=== PATIENT | female | born 1945 | race Caucasian/White ===

== ENCOUNTER → 2017-11-24 14:08 | Outpatient (CLI) | payer MEDICARE, OTHER, SELFPAY ==
--- NOTE | 2017-11-24 14:11 | DI.RAD.S_ITS ---
PROCEDURE: XR HIP W PEL IF DONE RT 2V INDICATIONS: right hip pain/pelvic pain TECHNIQUE: AP pelvis with lateral view(s) of the right hip(s). COMPARISON: None. FINDINGS: Bones: No fractures or dislocations. Pelvic ring appears intact. No suspicious bony lesions. Lower lumbar discogenic changes are present. There is vefg-bt-rukchoul bilateral hip degeneration, with subchondral sclerosis and spurring. Soft tissues: The visualized bowel gas pattern is normal. No suspicious soft tissue calcifications. IMPRESSION: Apem-lx-[id number] bilateral hip joint degeneration. Dictated by: Bandar Tavera M.D. on 11/24/2017 at 14:58 Approved by: Bandar Tavera M.D. on 11/24/2017 at 15:00
== END ==
PROVIDERS: PCP Internal Medicine; Visit Provider Internal Medicine
DX: M25.551 Pain in right hip (principal); M16.0 Bilateral primary osteoarthritis of hip; R10.2 Pelvic and perineal pain
CPT/HCPCS: 73502

== ENCOUNTER 2018-12-18 12:00 | Outpatient (RCR) | payer MEDICARE, OTHER, SELFPAY ==
--- NOTE | 2018-10-26 12:52 | PT.OIE ---
Current Diagnoses Other chronic pain (10/26/18) Pain in right hip (10/26/18) Stiffness of right hip, not elsewhere classified (10/26/18) Radiculopathy, lumbar region (10/26/18) Dorsalgia, unspecified (10/26/18) Muscle weakness (generalized) (10/26/18) Past Medical History (Last Updated 11/24/17 @ 14:17 by Ulises Loyd MD) Anxiety (Chronic ~2001) Bilateral medial epicondylitis of elbow joint (Resolved 2004) Cataract, right eye (Resolved 2013) Cervical spine pain (Resolved ~1999) Chronic back pain (Chronic 2003) Chronic headaches (Chronic) DVT (deep venous thrombosis) (Resolved 2008) Fibromyalgia (Chronic ~1999) Foot pain, left (Resolved ~2009) GERD (gastroesophageal reflux disease) (Chronic ~2004) 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) Recurrent sinusitis (Resolved ~1999) Right hip pain (Resolved 2005) Shoulder pain (Resolved) Sleep apnea (Chronic ~1999) Past Surgical History (Last Reviewed 11/24/17 @ 14:14 by Ulises Loyd MD) Anesthesia (Resolved) History of basal cell carcinoma (BCC) excision (Resolved 06/14/11) History of gynecologic surgery (Resolved) History of open reduction and internal fixation (ORIF) procedure (Resolved 09/30/15) History of right cataract surgery (Resolved 2013) Visit Care Team Role Provider Type Ulises Loyd MD Attending Provider Physician Primary Care Provider Specialty: Internal Medicine Address: [address] [place] [address], [facility] Email: [email or web address] Physical Therapy Initial Evaluation PT-OP-A Visit Information Start: 10/26/18 12:26 Freq: Status: Active Protocol: Document 10/26/18 11:15 DCW (Rec: 10/26/18 12:52 DCW [id number]) Out-Patient Physical Therapy Visit Information Visit Information Visit Type Initial Evaluation Visit Start Time 11:15 Visit Stop Time 11:55 Total Visit Minutes 40 Visit Number 1 Number of PIANO MOVER Visits 0 Evaluation Information Evaluation Date 10/26/18 PT-OP-B Current Condition Start: 10/26/18 12:26 Freq: Status: Active Protocol: Document 10/26/18 11:15 DCW (Rec: 10/26/18 12:52 [facility] [id number]) Current Condition History of Current Condition Onset Date Two months Current Complaints right-sided low back and hip pain with radicular right leg pain History of Current Condition Pt is a 73 year old female presenting with a recurring history of right-sided low back and hip pain, with radicular symptoms into her right lower extremity. Pt reports that 2.5 years ago, she was treated in PT for the same symptoms, which seemed to help her quite a bit. Pt reports that she flared up her pain following the of her father over the summer, after which she was responsible for packing up and selling his home. Pt describes the initial pain as a burning sensation, however following a recent course of steroids, the pain switched from burning to aching. Pt notes the pain is more in the buttock and leg, and reports her right leg feels painful and tight, making ascending stairs and lifting her leg into the car difficult. Pt admits that she was looking at a chart, and I think it is my Piriformis muscle. I think that's what was wrong last time, so I've been doing the stretch I remember from two years ago. Prior Treatments and Tests 2.5 years s/p PT for same issue Future Testing and Treatments Planned Per PCP note, referral to Dr Armendariz if therapy does not decrease pt's symptoms Prior Functional Status Baseline Function- ADL's Independent Baseline Function- Mobility Independent Current Functional Impairments (Reported) Functional Limitations- Other Difficulty with pain and tightness ascending stairs and lifting R leg into car PT-OP-C Subjective Start: 10/26/18 12:26 Freq: Status: Active Protocol: Document 10/26/18 11:15 DCW (Rec: 10/26/18 12:52 [facility] [id number]) OP-PT Pain Assessment Pain Assessment Grid Paper Pain Assessment Grid Completed Yes Location Right Posterior Hip Pain Location Details Right posterior/lateral hip Intensity 6 Scale Used Numeric (1 - 10) Description Aching,Burning PT-OP-F Manual Assessment Start: 10/26/18 12:26 Freq: Status: Active Protocol: Document 10/26/18 11:15 DCW (Rec: 10/26/18 12:52 [facility] [id number]) Manual Assessments Soft Tissue Assessment Soft Tissue Mobility Assessment Severe tone and tenderness to palpation 3/4: Wincing and withdraw on right piriformis Mild tone and tenderness to palpation 1/4: Complaint of pain along bilateral QL Joint Mobility Assessment Joint Mobility Assessment Tenderness to palpation 2/4: Pain with wincing along R SI, pt feels relief with palpation of L SI. No complaints of pain with palpation/mobilization of lumbar vertebrae. PT-OP-K Range of Motion Start: 10/26/18 12:26 Freq: Status: Active Protocol: Document 10/26/18 11:15 DCW (Rec: 10/26/18 12:52 DCW [id number]) Lumbar Spine Range of Motion Lumbar Spine Active Degrees Testing Position Standing Flexion 30 Extension 25 Lateral Flexion Left 49 Lateral Flexion Right 49 ROM Limitations Soft Tissue Tightness Comments Lateral flexion measured in cm from floor to finger tips Hip Goniometric Range of Motion Hip Left Passive Internal Rotation 35 External Rotation 45 Right Passive Internal Rotation 20 External Rotation 25 PT-OP-L Special Tests Start: 10/26/18 12:26 Freq: Status: Active Protocol: Document 10/26/18 11:15 DCW (Rec: 10/26/18 12:52 DCW [id number]) Special Tests Lumbar Spine Special Tests Lateral SI Compression Test Results Negative Anterior SI Shear Test Results Negative Vertical Spine Loading Test Results Negative NEY Test Results R Ipsilateral posterior hip pain Straight Leg Raise Test Results Negative Slump Test Results Negative Compression Test Results Negative PT-OP-M Strength Start: 10/26/18 12:26 Freq: Status: Active Protocol: Document 10/26/18 11:15 DCW (Rec: 10/26/18 12:52 DCW [id number]) Hip Strength Hip Manual Muscle Testing Right Flexion (L2) 4 Good Abduction 5 Normal Adduction 5 Normal External Rotation 4+ Good+ Internal Rotation 4+ Good+ Left Flexion (L2) 5 Normal Abduction 5 Normal Adduction 5 Normal External Rotation 5 Normal Internal Rotation 5 Normal Knee Strength Knee Manual Muscle Testing Right Flexion (S2) 5 Normal Extension (L3) 5 Normal Left Flexion (S2) 5 Normal Extension (L3) 5 Normal PT-OP-Q Treatments Start: 10/26/18 12:26 Freq: Status: Active Protocol: Document 10/26/18 11:15 DCW (Rec: 10/26/18 12:52 DCW [id number]) Therapeutic Exercises Supine Exercises Piriformis Stretch Supine Exercise Name Figure-4, Skab-bn-Rqpdyhpv Shoulder Side right Sitting Exercises Self-STM Sitting Exercise Name STM to Piriformis /c Tennis ball Piriformis stretch Sitting Exercise Name Seated Figure-4 Side right PT-OP-T Assessment and Plan Start: 10/26/18 12:26 Freq: Status: Active Protocol: Document 10/26/18 11:15 DCW (Rec: 10/26/18 12:52 DCW [id number]) Physical Therapy Assessment Rehab Potential Rehabilitation Potential Good Evaluation Complexity Number of Personal Factors/Comorbidities 1-2 Number of Body Systems Impaired 1-2 Clinical Presentation at Evaluation Stable Impairments Impairments Functional Mobility,Pain,ROM, Soft Tissue Mobility,Strength Goals Three Impairment Restricted hip ROM in ER and IR Extrusion Press Adjuster Goal (LTG) Right ER to 40? and IR to 35? LTG Duration 12/26/18 Two Impairment Pt hip flexion weakness Short Term Goal (STG) Pt to lift leg into car with no increased symptoms of pain or tightness STG Duration 11/25/18 Extrusion Press Adjuster Goal (LTG) Pt to ascend stairs with no increased symptoms LTG Duration 12/26/18 One Impairment Pt does not have an appropriate home exercise program Short Term Goal (STG) Pt to be independent and compliant with an appropriate HEP STG Duration 11/25/18 Assessment Summary Assessment Pt presents with signs and symptoms consistent with Piriformis syndrome. From pt's description, this was pt's problem previously when she underwent PT 2.5 years ago, and pt reports symptoms are similar. Therapist was unable to create and low back pain or symptoms with testing today, and pt was very tender to palpation of the Piriformis and the area around its origin . Pt should benefit from skilled therapy focusing on decreasing soft tissue tone, improving hip ROM and strength , improving pt's functional mobility or stairs and lifting her leg into her car, and improving flexibility. Physical Therapy Plan Frequency and Duration Frequency of Treatment 2x/Week Duration of Treatment two months Plan of Care Start Date 10/26/18 Plan of Care End Date 12/26/18 Therapeutic Interventions Therapeutic Interventions Aquatic Therapy,Home Exercise Program,Joint Mobilizations, Manual Therapy,Self-Care/Home Management,Soft Tissue Mobilization,Therapeutic Activities,Therapeutic Exercises Modalities Cold Pack/Ice Massage,Electric Stimulation,Hot Packs, Ultrasound Next Visit Focus/Plan Next Note Type Treatment Note Next Visit Plan STM, Flexibililty exercises, strengthening, hip ROM
--- NOTE | 2018-10-26 12:53 | PT.OPPOC ---
Current Diagnoses Other chronic pain (10/26/18) Pain in right hip (10/26/18) Stiffness of right hip, not elsewhere classified (10/26/18) Radiculopathy, lumbar region (10/26/18) Dorsalgia, unspecified (10/26/18) Muscle weakness (generalized) (10/26/18) Visit Care Team Role Provider Type Ulises Loyd MD Attending Provider Physician Primary Care Provider Specialty: Internal Medicine Address: [address] [place] [address], [facility] [address], [place], [facility] Email: [email or web address] Plan Of Care PT-OP-T Assessment and Plan Start: 10/26/18 12:26 Freq: Status: Active Protocol: Document 10/26/18 11:15 DCW (Rec: 10/26/18 12:52 DCW [id number]) Physical Therapy Assessment Rehab Potential Rehabilitation Potential Good Evaluation Complexity Number of Personal Factors/Comorbidities 1-2 Number of Body Systems Impaired 1-2 Clinical Presentation at Evaluation Stable Impairments Impairments Functional Mobility,Pain,ROM, Soft Tissue Mobility,Strength Goals Three Impairment Restricted hip ROM in ER and IR Computer Numerical Control Grinder Goal (LTG) Right ER to 40? and IR to 35? LTG Duration 12/26/18 Two Impairment Pt hip flexion weakness Short Term Goal (STG) Pt to lift leg into car with no increased symptoms of pain or tightness STG Duration 11/25/18 Jail Goal (LTG) Pt to ascend stairs with no increased symptoms LTG Duration 12/26/18 One Impairment Pt does not have an appropriate home exercise program Short Term Goal (STG) Pt to be independent and compliant with an appropriate HEP STG Duration 11/25/18 Assessment Summary Assessment Pt presents with signs and symptoms consistent with Piriformis syndrome. From pt's description, this was pt's problem previously when she underwent PT 2.5 years ago, and pt reports symptoms are similar. Therapist was unable to create and low back pain or symptoms with testing today, and pt was very tender to palpation of the Piriformis and the area around its origin . Pt should benefit from skilled therapy focusing on decreasing soft tissue tone, improving hip ROM and strength , improving pt's functional mobility or stairs and lifting her leg into her car, and improving flexibility. Physical Therapy Plan Frequency and Duration Frequency of Treatment 2x/Week Duration of Treatment two months Plan of Care Start Date 10/26/18 Plan of Care End Date 12/26/18 Therapeutic Interventions Therapeutic Interventions Aquatic Therapy,Home Exercise Program,Joint Mobilizations, Manual Therapy,Self-Care/Home Management,Soft Tissue Mobilization,Therapeutic Activities,Therapeutic Exercises Modalities Cold Pack/Ice Massage,Electric Stimulation,Hot Packs, Ultrasound Next Visit Focus/Plan Next Note Type Treatment Note Next Visit Plan STM, Flexibility exercises, strengthening, hip ROM Plan of Care Dates Plan of Care Start Date 10/26/18 Plan of Care End Date 12/26/18 Please Sign and Return: I have reviewed this Plan of Care and certify that the skilled therapy services above are required to meet the patient?s needs. Physician Signature Date Printed Name and Credentials Clinical Instructor Signature Printed Name and Credentials
--- NOTE | 2018-11-13 13:41 | PT.OTN ---
Current Diagnoses Other chronic pain (11/13/18) Pain in right hip (11/13/18) Stiffness of right hip, not elsewhere classified (11/13/18) Radiculopathy, lumbar region (11/13/18) Dorsalgia, unspecified (11/13/18) Muscle weakness (generalized) (11/13/18) Physical Therapy Treatment Note PT-OP-A Visit Information Start: 10/26/18 12:26 Freq: Status: Active Protocol: Document 11/13/18 13:45 GGD (Rec: 11/15/18 16:41 GGD [id number]) Out-Patient Physical Therapy Visit Information Visit Information Visit Type Treatment Note Visit Start Time 13:45 Visit Stop Time 14:25 Total Visit Minutes 40 Visit Number 2 Number of PREPARED FOODS SUPERVISOR Visits 1 Evaluation Information Evaluation Date 10/26/18 PT-OP-B Current Condition Start: 10/26/18 12:26 Freq: Status: Active Protocol: Document 10/26/18 11:15 DCW (Rec: 10/26/18 12:52 DCW [id number]) Current Condition History of Current Condition Onset Date Two months Current Complaints right-sided low back and hip pain with radicular right leg pain History of Current Condition Pt is a 73 year old female presenting with a recurring history of right-sided low back and hip pain, with radicular symptoms into her right lower extremity. Pt reports that 2.5 years ago, she was treated in PT for the same symptoms, which seemed to help her quite a bit. Pt reports that she flared up her pain following the of her father over the summer, after which she was responsible for packing up and selling his home. Pt describes the initial pain as a burning sensation, however following a recent course of steroids, the pain switched from burning to aching. Pt notes the pain is more in the buttock and leg, and reports her right leg feels painful and tight, making ascending stairs and lifting her leg into the car difficult. Pt admits that she was looking at a chart, and I think it is my Piriformis muscle. I think that's what was wrong last time, so I've been doing the stretch I remember from two years ago. Prior Treatments and Tests 2.5 years s/p PT for same issue Future Testing and Treatments Planned Per PCP note, referral to Dr Billow if therapy does not decrease pt's symptoms Prior Functional Status Baseline Function- ADL's Independent Baseline Function- Mobility Independent Current Functional Impairments (Reported) Functional Limitations- Other Difficulty with pain and tightness ascending stairs and lifting R leg into car PT-OP-C Subjective Start: 10/26/18 12:26 Freq: Status: Active Protocol: Document 11/13/18 13:45 GGD (Rec: 11/15/18 16:41 GGD [id number]) OP-PT Subjective Patient Comments Patient Comments Pt states she been out of town and is a little sore from traveling. PT-OP-F Manual Assessment Start: 10/26/18 12:26 Freq: Status: Active Protocol: Document 10/26/18 11:15 DCW (Rec: 10/26/18 12:52 DCW [id number]) Manual Assessments Soft Tissue Assessment Soft Tissue Mobility Assessment Severe tone and tenderness to palpation 3/4: Wincing and withdraw on right piriformis Mild tone and tenderness to palpation 1/4: Complaint of pain along bilateral QL Joint Mobility Assessment Joint Mobility Assessment Tenderness to palpation 2/4: Pain with wincing along R SI, pt feels relief with palpation of L SI. No complaints of pain with palpation/mobilization of lumbar vertebrae. PT-OP-K Range of Motion Start: 10/26/18 12:26 Freq: Status: Active Protocol: Document 10/26/18 11:15 DCW (Rec: 10/26/18 12:52 DCW [id number]) Lumbar Spine Range of Motion Lumbar Spine Active Degrees Testing Position Standing Flexion 30 Extension 25 Lateral Flexion Left 49 Lateral Flexion Right 49 ROM Limitations Soft Tissue Tightness Comments Lateral flexion measured in cm from floor to finger tips Hip Goniometric Range of Motion Hip Left Passive Internal Rotation 35 External Rotation 45 Right Passive Internal Rotation 20 External Rotation 25 PT-OP-L Special Tests Start: 10/26/18 12:26 Freq: Status: Active Protocol: Document 10/26/18 11:15 DCW (Rec: 10/26/18 12:52 DCW [id number]) Special Tests Lumbar Spine Special Tests Lateral SI Compression Test Results Negative Anterior SI Shear Test Results Negative Vertical Spine Loading Test Results Negative NEY Test Results R Ipsilateral posterior hip pain Straight Leg Raise Test Results Negative Slump Test Results Negative Compression Test Results Negative PT-OP-M Strength Start: 10/26/18 12:26 Freq: Status: Active Protocol: Document 10/26/18 11:15 DCW (Rec: 10/26/18 12:52 DCW [id number]) Hip Strength Hip Manual Muscle Testing Right Flexion (L2) 4 Good Abduction 5 Normal Adduction 5 Normal External Rotation 4+ Good+ Internal Rotation 4+ Good+ Left Flexion (L2) 5 Normal Abduction 5 Normal Adduction 5 Normal External Rotation 5 Normal Internal Rotation 5 Normal Knee Strength Knee Manual Muscle Testing Right Flexion (S2) 5 Normal Extension (L3) 5 Normal Left Flexion (S2) 5 Normal Extension (L3) 5 Normal PT-OP-Q Treatments Start: 10/26/18 12:26 Freq: Status: Active Protocol: Document 11/13/18 13:45 GGD (Rec: 11/15/18 16:41 GGD [id number]) Therapeutic Exercises Supine Exercises hip add Supine Exercise Name Hip add Side bilateral Equipment Used ball Reps/Minutes 10 SKC Side bilateral Reps/Minutes 2 x 30 LTR Supine Exercise Name low trunk rotations Side bilateral Reps/Minutes 10 hamstring str. Supine Exercise Name hamstring Str. Side bilateral Reps/Minutes 60 sec bridges Supine Exercise Name bridges Side bilateral Reps/Minutes 10 Piriformis Stretch Supine Exercise Name Figure-4, Eyqk-jt-Irrgepow Shoulder Side right Sidelying Exercises Hip abduction Side bilateral Reps/Minutes 10 Comments cues for form clamshells Sidelying Exercise Name clamshells Side bilateral Reps/Minutes 10 Manual Therapy Treatment Soft Tissue Mobilization 1 Body Location right piriformis Mobilization Type Myofascial Release,Sustained Pressure Intensity/Depth Moderate Body Position Sidelying PT-OP-T Assessment and Plan Start: 10/26/18 12:26 Freq: Status: Active Protocol: Document 11/13/18 13:45 GGD (Rec: 11/15/18 16:41 GGD [id number]) Physical Therapy Assessment Assessment Summary Assessment Pt needed cues for exercise technique. She had good tolerance to light STM. Physical Therapy Plan Frequency and Duration Frequency of Treatment 2x/Week Duration of Treatment two months Plan of Care Start Date 10/26/18 Plan of Care End Date 12/26/18 Therapeutic Interventions Therapeutic Interventions Aquatic Therapy,Home Exercise Program,Joint Mobilizations, Manual Therapy,Self-Care/Home Management,Soft Tissue Mobilization,Therapeutic Activities,Therapeutic Exercises Next Visit Focus/Plan Next Note Type Treatment Note Next Visit Plan STM, Flexibililty exercises, strengthening, hip ROM, shuttle, biodex
--- NOTE | 2018-11-21 14:34 | PT.OTN ---
Current Diagnoses Other chronic pain (11/21/18) Pain in right hip (11/21/18) Stiffness of right hip, not elsewhere classified (11/21/18) Radiculopathy, lumbar region (11/21/18) Dorsalgia, unspecified (11/21/18) Muscle weakness (generalized) (11/21/18) Physical Therapy Treatment Note PT-OP-A Visit Information Start: 10/26/18 12:26 Freq: Status: Active Protocol: Document 11/21/18 13:45 HH (Rec: 11/21/18 14:33 HH [email or web address]) Out-Patient Physical Therapy Visit Information Visit Information Visit Type Treatment Note Visit Start Time 13:45 Visit Stop Time 14:30 Total Visit Minutes 45 Visit Number 3 Number of ADVANCED QUALITY ENGINEER Visits 0 PT-OP-B Current Condition Start: 10/26/18 12:26 Freq: Status: Active Protocol: Document 10/26/18 11:15 DCW (Rec: 10/26/18 12:52 DCW [id number]) Current Condition History of Current Condition Onset Date Two months Current Complaints right-sided low back and hip pain with radicular right leg pain History of Current Condition Pt is a 73 year old female presenting with a recurring history of right-sided low back and hip pain, with radicular symptoms into her right lower extremity. Pt reports that 2.5 years ago, she was treated in PT for the same symptoms, which seemed to help her quite a bit. Pt reports that she flared up her pain following the of her father over the summer, after which she was responsible for packing up and selling his home. Pt describes the initial pain as a burning sensation, however following a recent course of steroids, the pain switched from burning to aching. Pt notes the pain is more in the buttock and leg, and reports her right leg feels painful and tight, making ascending stairs and lifting her leg into the car difficult. Pt admits that she was looking at a chart, and I think it is my Piriformis muscle. I think that's what was wrong last time, so I've been doing the stretch I remember from two years ago. Prior Treatments and Tests 2.5 years s/p PT for same issue Future Testing and Treatments Planned Per PCP note, referral to Dr Armendariz if therapy does not decrease pt's symptoms Prior Functional Status Baseline Function- ADL's Independent Baseline Function- Mobility Independent Current Functional Impairments (Reported) Functional Limitations- Other Difficulty with pain and tightness ascending stairs and lifting R leg into car PT-OP-C Subjective Start: 10/26/18 12:26 Freq: Status: Active Protocol: Document 11/21/18 13:45 HH (Rec: 11/21/18 14:33 HH [email or web address]) OP-PT Subjective Patient Comments Patient Comments Nika been doing all my exercises. Having noticed any changes yet since it's only been one week. PT-OP-F Manual Assessment Start: 10/26/18 12:26 Freq: Status: Active Protocol: Document 10/26/18 11:15 DCW (Rec: 10/26/18 12:52 DCW [id number]) Manual Assessments Soft Tissue Assessment Soft Tissue Mobility Assessment Severe tone and tenderness to palpation 3/4: Wincing and withdraw on right piriformis Mild tone and tenderness to palpation 1/4: Complaint of pain along bilateral QL Joint Mobility Assessment Joint Mobility Assessment Tenderness to palpation 2/4: Pain with wincing along R SI, pt feels relief with palpation of L SI. No complaints of pain with palpation/mobilization of lumbar vertebrae. PT-OP-K Range of Motion Start: 10/26/18 12:26 Freq: Status: Active Protocol: Document 10/26/18 11:15 DCW (Rec: 10/26/18 12:52 DCW [id number]) Lumbar Spine Range of Motion Lumbar Spine Active Degrees Testing Position Standing Flexion 30 Extension 25 Lateral Flexion Left 49 Lateral Flexion Right 49 ROM Limitations Soft Tissue Tightness Comments Lateral flexion measured in cm from floor to finger tips Hip Goniometric Range of Motion Hip Left Passive Internal Rotation 35 External Rotation 45 Right Passive Internal Rotation 20 External Rotation 25 PT-OP-L Special Tests Start: 10/26/18 12:26 Freq: Status: Active Protocol: Document 10/26/18 11:15 DCW (Rec: 10/26/18 12:52 DCW [id number]) Special Tests Lumbar Spine Special Tests Lateral SI Compression Test Results Negative Anterior SI Shear Test Results Negative Vertical Spine Loading Test Results Negative NEY Test Results R Ipsilateral posterior hip pain Straight Leg Raise Test Results Negative Slump Test Results Negative Compression Test Results Negative PT-OP-M Strength Start: 10/26/18 12:26 Freq: Status: Active Protocol: Document 10/26/18 11:15 DCW (Rec: 10/26/18 12:52 DCW [id number]) Hip Strength Hip Manual Muscle Testing Right Flexion (L2) 4 Good Abduction 5 Normal Adduction 5 Normal External Rotation 4+ Good+ Internal Rotation 4+ Good+ Left Flexion (L2) 5 Normal Abduction 5 Normal Adduction 5 Normal External Rotation 5 Normal Internal Rotation 5 Normal Knee Strength Knee Manual Muscle Testing Right Flexion (S2) 5 Normal Extension (L3) 5 Normal Left Flexion (S2) 5 Normal Extension (L3) 5 Normal PT-OP-Q Treatments Start: 10/26/18 12:26 Freq: Status: Active Protocol: Document 11/21/18 13:45 HH (Rec: 11/21/18 14:33 HH [email or web address]) Therapeutic Exercises Supine Exercises Piriformis Stretch Supine Exercise Name Figure-4, Bcsi-az-Xywuxrye Shoulder Side right Sidelying Exercises self STM Sidelying Exercise Name to have spouse assist Equipment Used rolling pin Comments on piriformis and IT band clamshells Sidelying Exercise Name clakshells Side bilateral Reps/Minutes 10 Comments modification on hips at 90 degrees Gait Training Gait Activity hurdles Description single stance Device Used 1 gt Surface ground level Treatment Focus correct ipsilateral hip drop Comments single leg stance on R LE Manual Therapy Treatment Soft Tissue Mobilization TFL, IT band Mobilization Type Rolling Intensity/Depth Moderate Body Position Sidelying Comments rolling pin 1 Body Location right piriformis Mobilization Type Myofascial Release,Sustained Pressure Intensity/Depth Moderate Body Position Sidelying Joint Mobilizations R SIJ distraction Grade III Body Position Sidelying Reps/Duration 10 secs x5 R hip distraction Direction inferior Grade III Body Position Supine Reps/Duration 5secs x 8 PT-OP-T Assessment and Plan Start: 10/26/18 12:26 Freq: Status: Active Protocol: Document 11/21/18 13:45 HH (Rec: 11/21/18 14:33 HH [email or web address]) Physical Therapy Assessment Goals Three Impairment Restricted hip ROM in ER and IR 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 and IR to 35? LTG Duration 12/26/18 Two Impairment Pt hip flexion weakness Short Term Goal (STG) Pt to lift leg into car with no increased symptoms of pain or tightness STG Duration 11/25/18 Long-Term Goal (LTG) Pt to ascend stairs with no increased symptoms LTG Duration 12/26/18 One Impairment Pt does not have an appropriate home exercise program Short Term Goal (STG) Pt to be independent and compliant with an appropriate HEP STG Duration 11/25/18 Assessment Summary Assessment Focused on manual therapy on R glute, piriformis, TFL, It band today. Added self release with spouse assistance using rolling pin. Gait analysis today noticed pt has significant lateral weight shift during RLE stance phase and L hip drop. Used gt and mirror to facilitate even hip level. Physical Therapy Plan Next Visit Focus/Plan Next Note Type Treatment Note Next Visit Plan STM, Flexibililty exercises, strengthening, hip ROM, shuttle, biodex
--- NOTE | 2018-11-26 14:32 | PT.OTN ---
Current Diagnoses Other chronic pain (11/26/18) Pain in right hip (11/26/18) Stiffness of right hip, not elsewhere classified (11/26/18) Radiculopathy, lumbar region (11/26/18) Dorsalgia, unspecified (11/26/18) Muscle weakness (generalized) (11/26/18) Physical Therapy Treatment Note PT-OP-A Visit Information Start: 10/26/18 12:26 Freq: Status: Active Protocol: Document 11/26/18 13:50 DCW (Rec: 11/26/18 14:32 DCW [id number]) Out-Patient Physical Therapy Visit Information Visit Information Visit Type Treatment Note Visit Start Time 13:50 Visit Stop Time 14:30 Total Visit Minutes 40 Visit Number 4 Number of FILM DEVELOPER Visits 0 Evaluation Information Evaluation Date 10/26/18 PT-OP-B Current Condition Start: 10/26/18 12:26 Freq: Status: Active Protocol: Document 10/26/18 11:15 DCW (Rec: 10/26/18 12:52 DCW [id number]) Current Condition History of Current Condition Onset Date Two months Current Complaints right-sided low back and hip pain with radicular right leg pain History of Current Condition Pt is a 73 year old female presenting with a recurring history of right-sided low back and hip pain, with radicular symptoms into her right lower extremity. Pt reports that 2.5 years ago, she was treated in PT for the same symptoms, which seemed to help her quite a bit. Pt reports that she flared up her pain following the of her father over the summer, after which she was responsible for packing up and selling his home. Pt describes the initial pain as a burning sensation, however following a recent course of steroids, the pain switched from burning to aching. Pt notes the pain is more in the buttock and leg, and reports her right leg feels painful and tight, making ascending stairs and lifting her leg into the car difficult. Pt admits that she was looking at a chart, and I think it is my Piriformis muscle. I think that's what was wrong last time, so I've been doing the stretch I remember from two years ago. Prior Treatments and Tests 2.5 years s/p PT for same issue Future Testing and Treatments Planned Per PCP note, referral to Dr Armendariz if therapy does not decrease pt's symptoms Prior Functional Status Baseline Function- ADL's Independent Baseline Function- Mobility Independent Current Functional Impairments (Reported) Functional Limitations- Other Difficulty with pain and tightness ascending stairs and lifting R leg into car PT-OP-C Subjective Start: 10/26/18 12:26 Freq: Status: Active Protocol: Document 11/26/18 13:50 DCW (Rec: 11/26/18 14:32 DCW [id number]) OP-PT Subjective Patient Comments Patient Comments Pt reports she is pretty okay overall. PT-OP-F Manual Assessment Start: 10/26/18 12:26 Freq: Status: Active Protocol: Document 10/26/18 11:15 DCW (Rec: 10/26/18 12:52 DCW [id number]) Manual Assessments Soft Tissue Assessment Soft Tissue Mobility Assessment Severe tone and tenderness to palpation 3/4: Wincing and withdraw on right piriformis Mild tone and tenderness to palpation 1/4: Complaint of pain along bilateral QL Joint Mobility Assessment Joint Mobility Assessment Tenderness to palpation 2/4: Pain with wincing along R SI, pt feels relief with palpation of L SI. No complaints of pain with palpation/mobilization of lumbar vertebrae. PT-OP-K Range of Motion Start: 10/26/18 12:26 Freq: Status: Active Protocol: Document 10/26/18 11:15 DCW (Rec: 10/26/18 12:52 DCW [id number]) Lumbar Spine Range of Motion Lumbar Spine Active Degrees Testing Position Standing Flexion 30 Extension 25 Lateral Flexion Left 49 Lateral Flexion Right 49 ROM Limitations Soft Tissue Tightness Comments Lateral flexion measured in cm from floor to finger tips Hip Goniometric Range of Motion Hip Left Passive Internal Rotation 35 External Rotation 45 Right Passive Internal Rotation 20 External Rotation 25 PT-OP-L Special Tests Start: 10/26/18 12:26 Freq: Status: Active Protocol: Document 10/26/18 11:15 DCW (Rec: 10/26/18 12:52 DCW [id number]) Special Tests Lumbar Spine Special Tests Lateral SI Compression Test Results Negative Anterior SI Shear Test Results Negative Vertical Spine Loading Test Results Negative NEY Test Results R Ipsilateral posterior hip pain Straight Leg Raise Test Results Negative Slump Test Results Negative Compression Test Results Negative PT-OP-M Strength Start: 10/26/18 12:26 Freq: Status: Active Protocol: Document 10/26/18 11:15 DCW (Rec: 10/26/18 12:52 DCW [id number]) Hip Strength Hip Manual Muscle Testing Right Flexion (L2) 4 Good Abduction 5 Normal Adduction 5 Normal External Rotation 4+ Good+ Internal Rotation 4+ Good+ Left Flexion (L2) 5 Normal Abduction 5 Normal Adduction 5 Normal External Rotation 5 Normal Internal Rotation 5 Normal Knee Strength Knee Manual Muscle Testing Right Flexion (S2) 5 Normal Extension (L3) 5 Normal Left Flexion (S2) 5 Normal Extension (L3) 5 Normal PT-OP-Q Treatments Start: 10/26/18 12:26 Freq: Status: Active Protocol: Document 11/26/18 13:50 DCW (Rec: 11/26/18 14:32 DCW [id number]) Therapeutic Exercises Supine Exercises hip add Supine Exercise Name Hip add Side bilateral Equipment Used ball Reps/Minutes 10 LTR Supine Exercise Name low trunk rotations Side bilateral Equipment Used 45 cm T-ball Reps/Minutes 10 hamstring str. Supine Exercise Name hamstring Str. Side bilateral Reps/Minutes 60 sec bridges Supine Exercise Name bridges Side bilateral Reps/Minutes 10 Piriformis Stretch Supine Exercise Name Figure-4, Jewp-qt-Apxezuzk Shoulder Side right Sidelying Exercises Reverse Clamshell Sidelying Exercise Name Reverse Clamshells Side bilateral Hip abduction Side bilateral Reps/Minutes 10 Comments cues for form clamshells Sidelying Exercise Name clamshells Side bilateral Reps/Minutes 10 Other Exercises Resisted Ambulation Other Exercise Name Side-stepping Resistance Yellow Equipment Used T-band Gait Training Gait Activity hurdles Description single stance Device Used 1 gt Surface ground level Treatment Focus correct ipsilateral hip drop Comments single leg stance on R LE Manual Therapy Treatment Soft Tissue Mobilization TFL, IT band Mobilization Type Strumming,Sustained Pressure Intensity/Depth Moderate Body Position Sidelying Comments rolling pin 1 Body Location right piriformis Mobilization Type Myofascial Release,Sustained Pressure Intensity/Depth Moderate Body Position Sidelying Joint Mobilizations R hip distraction Direction inferior Grade III Body Position Supine Reps/Duration 5secs x 8 PT-OP-T Assessment and Plan Start: 10/26/18 12:26 Freq: Status: Active Protocol: Document 11/26/18 13:50 DCW (Rec: 11/26/18 14:32 DCW [id number]) Physical Therapy Assessment Goals Three Impairment Restricted hip ROM in ER and IR [facility] Goal (LTG) Right ER to 40? and IR to 35? LTG Duration 12/26/18 Two Impairment Pt hip flexion weakness Short Term Goal (STG) Pt to lift leg into car with no increased symptoms of pain or tightness STG Duration 11/25/18 T[employer] Controlled Machine Stitcher Goal (LTG) Pt to ascend stairs with no increased symptoms LTG Duration 12/26/18 One Impairment Pt does not have an appropriate home exercise program Short Term Goal (STG) Pt to be independent and compliant with an appropriate HEP STG Duration 11/25/18 Assessment Summary Assessment Decreased force of STM after pt noted she felt it was a bit too much last time. At end of appt, pt noted she was happy with the direction we' re going. Physical Therapy Plan Frequency and Duration Frequency of Treatment 2x/Week Duration of Treatment two months Plan of Care Start Date 10/26/18 Plan of Care End Date 12/26/18 Therapeutic Interventions Therapeutic Interventions Aquatic Therapy,Home Exercise Program,Joint Mobilizations, Manual Therapy,Self-Care/Home Management,Soft Tissue Mobilization,Therapeutic Activities,Therapeutic Exercises Next Visit Focus/Plan Next Note Type Treatment Note Next Visit Plan STM, Flexibililty exercises, strengthening, hip ROM, shuttle, biodex
--- NOTE | 2018-11-28 14:27 | PT.OTN ---
Current Diagnoses Other chronic pain (11/28/18) Pain in right hip (11/28/18) Stiffness of right hip, not elsewhere classified (11/28/18) Radiculopathy, lumbar region (11/28/18) Dorsalgia, unspecified (11/28/18) Muscle weakness (generalized) (11/28/18) Physical Therapy Treatment Note PT-OP-A Visit Information Start: 10/26/18 12:26 Freq: Status: Active Protocol: Document 11/28/18 13:57 DCW (Rec: 11/28/18 14:27 DCW [id number]) Out-Patient Physical Therapy Visit Information Visit Information Visit Type Treatment Note Visit Start Time 13:57 Visit Stop Time 14:30 Total Visit Minutes 33 Visit Number 5 Number of MANAGER PROPERTY Visits 0 Evaluation Information Evaluation Date 10/26/18 PT-OP-B Current Condition Start: 10/26/18 12:26 Freq: Status: Active Protocol: Document 10/26/18 11:15 DCW (Rec: 10/26/18 12:52 DCW [id number]) Current Condition History of Current Condition Onset Date Two months Current Complaints right-sided low back and hip pain with radicular right leg pain History of Current Condition Pt is a 73 year old female presenting with a recurring history of right-sided low back and hip pain, with radicular symptoms into her right lower extremity. Pt reports that 2.5 years ago, she was treated in PT for the same symptoms, which seemed to help her quite a bit. Pt reports that she flared up her pain following the of her father over the summer, after which she was responsible for packing up and selling his home. Pt describes the initial pain as a burning sensation, however following a recent course of steroids, the pain switched from burning to aching. Pt notes the pain is more in the buttock and leg, and reports her right leg feels painful and tight, making ascending stairs and lifting her leg into the car difficult. Pt admits that she was looking at a chart, and I think it is my Piriformis muscle. I think that's what was wrong last time, so I've been doing the stretch I remember from two years ago. Prior Treatments and Tests 2.5 years s/p PT for same issue Future Testing and Treatments Planned Per PCP note, referral to Dr Armendariz if therapy does not decrease pt's symptoms Prior Functional Status Baseline Function- ADL's Independent Baseline Function- Mobility Independent Current Functional Impairments (Reported) Functional Limitations- Other Difficulty with pain and tightness ascending stairs and lifting R leg into car PT-OP-C Subjective Start: 10/26/18 12:26 Freq: Status: Active Protocol: Document 11/28/18 13:57 DCW (Rec: 11/28/18 14:27 DCW [id number]) OP-PT Subjective Patient Comments Patient Comments Not quite as much pain in my right buttocks as what there has been. PT-OP-F Manual Assessment Start: 10/26/18 12:26 Freq: Status: Active Protocol: Document 10/26/18 11:15 DCW (Rec: 10/26/18 12:52 DCW [id number]) Manual Assessments Soft Tissue Assessment Soft Tissue Mobility Assessment Severe tone and tenderness to palpation 3/4: Wincing and withdraw on right piriformis Mild tone and tenderness to palpation 1/4: Complaint of pain along bilateral QL Joint Mobility Assessment Joint Mobility Assessment Tenderness to palpation 2/4: Pain with wincing along R SI, pt feels relief with palpation of L SI. No complaints of pain with palpation/mobilization of lumbar vertebrae. PT-OP-K Range of Motion Start: 10/26/18 12:26 Freq: Status: Active Protocol: Document 10/26/18 11:15 DCW (Rec: 10/26/18 12:52 DCW [id number]) Lumbar Spine Range of Motion Lumbar Spine Active Degrees Testing Position Standing Flexion 30 Extension 25 Lateral Flexion Left 49 Lateral Flexion Right 49 ROM Limitations Soft Tissue Tightness Comments Lateral flexion measured in cm from floor to finger tips Hip Goniometric Range of Motion Hip Left Passive Internal Rotation 35 External Rotation 45 Right Passive Internal Rotation 20 External Rotation 25 PT-OP-L Special Tests Start: 10/26/18 12:26 Freq: Status: Active Protocol: Document 10/26/18 11:15 DCW (Rec: 10/26/18 12:52 DCW [id number]) Special Tests Lumbar Spine Special Tests Lateral SI Compression Test Results Negative Anterior SI Shear Test Results Negative Vertical Spine Loading Test Results Negative NEY Test Results R Ipsilateral posterior hip pain Straight Leg Raise Test Results Negative Slump Test Results Negative Compression Test Results Negative PT-OP-M Strength Start: 10/26/18 12:26 Freq: Status: Active Protocol: Document 10/26/18 11:15 DCW (Rec: 10/26/18 12:52 DCW [id number]) Hip Strength Hip Manual Muscle Testing Right Flexion (L2) 4 Good Abduction 5 Normal Adduction 5 Normal External Rotation 4+ Good+ Internal Rotation 4+ Good+ Left Flexion (L2) 5 Normal Abduction 5 Normal Adduction 5 Normal External Rotation 5 Normal Internal Rotation 5 Normal Knee Strength Knee Manual Muscle Testing Right Flexion (S2) 5 Normal Extension (L3) 5 Normal Left Flexion (S2) 5 Normal Extension (L3) 5 Normal PT-OP-Q Treatments Start: 10/26/18 12:26 Freq: Status: Active Protocol: Document 11/28/18 13:57 DCW (Rec: 11/28/18 14:27 DCW [id number]) Therapeutic Exercises Supine Exercises ITB stretch Supine Exercise Name ITB stretch Side right hamstring str. Supine Exercise Name hamstring Str. Side bilateral Reps/Minutes 60 sec Piriformis Stretch Supine Exercise Name Figure-4, Zkjz-ha-Lhltvuwc Shoulder Side right Other Exercises SLS Other Exercise Name SLS Comments Focus on stability during R leg stance Resisted Ambulation Other Exercise Name Side-stepping Resistance Yellow Equipment Used T-band Gait Training Gait Activity hurdles Description single stance Device Used 1 gt Surface ground level Treatment Focus correct ipsilateral hip drop Comments single leg stance on R LE Manual Therapy Treatment Soft Tissue Mobilization TFL, IT band Mobilization Type Strumming,Sustained Pressure Intensity/Depth Moderate Body Position Sidelying Comments rolling pin 1 Body Location right piriformis Mobilization Type Myofascial Release,Sustained Pressure Intensity/Depth Moderate Body Position Sidelying Joint Mobilizations R hip distraction Direction inferior Grade III Body Position Supine Reps/Duration 5secs x 8 PT-OP-T Assessment and Plan Start: 10/26/18 12:26 Freq: Status: Active Protocol: Document 11/28/18 13:57 DCW (Rec: 11/28/18 14:27 DCW [id number]) Physical Therapy Assessment Goals Three Impairment Restricted hip ROM in ER and IR [facility] Goal (LTG) Right ER to 40? and IR to 35? LTG Duration 12/26/18 Two Impairment Pt hip flexion weakness Short Term Goal (STG) Pt to lift leg into car with no increased symptoms of pain or tightness STG Duration 11/25/18 [facility] Goal (LTG) Pt to ascend stairs with no increased symptoms LTG Duration 12/26/18 One Impairment Pt does not have an appropriate home exercise program Short Term Goal (STG) Pt to be independent and compliant with an appropriate HEP STG Duration 11/25/18 Assessment Summary Assessment Pt moving better recently, less overall pain and discomfort,. Physical Therapy Plan Frequency and Duration Frequency of Treatment 2x/Week Duration of Treatment two months Plan of Care Start Date 10/26/18 Plan of Care End Date 12/26/18 Therapeutic Interventions Therapeutic Interventions Aquatic Therapy,Home Exercise Program,Joint Mobilizations, Manual Therapy,Self-Care/Home Management,Soft Tissue Mobilization,Therapeutic Activities,Therapeutic Exercises Next Visit Focus/Plan Next Note Type Treatment Note Next Visit Plan STM, Flexibililty exercises, strengthening, hip ROM, shuttle, biodex
--- NOTE | 2018-12-06 14:29 | PT.OTN ---
Current Diagnoses Other chronic pain (12/06/18) Pain in right hip (12/06/18) Stiffness of right hip, not elsewhere classified (12/06/18) Radiculopathy, lumbar region (12/06/18) Dorsalgia, unspecified (12/06/18) Muscle weakness (generalized) (12/06/18) Physical Therapy Treatment Note PT-OP-A Visit Information Start: 10/26/18 12:26 Freq: Status: Active Protocol: Document 12/06/18 13:45 DCW (Rec: 12/06/18 14:22 DCW [id number]) Out-Patient Physical Therapy Visit Information Visit Information Visit Type Treatment Note Visit Start Time 13:45 Visit Stop Time 14:40 Total Visit Minutes 55 Visit Number 7 Number of HAND II BLOCKER Visits 0 Evaluation Information Evaluation Date 10/26/18 PT-OP-B Current Condition Start: 10/26/18 12:26 Freq: Status: Active Protocol: Document 10/26/18 11:15 DCW (Rec: 10/26/18 12:52 DCW [id number]) Current Condition History of Current Condition Onset Date Two months Current Complaints right-sided low back and hip pain with radicular right leg pain History of Current Condition Pt is a 73 year old female presenting with a recurring history of right-sided low back and hip pain, with radicular symptoms into her right lower extremity. Pt reports that 2.5 years ago, she was treated in PT for the same symptoms, which seemed to help her quite a bit. Pt reports that she flared up her pain following the of her father over the summer, after which she was responsible for packing up and selling his home. Pt describes the initial pain as a burning sensation, however following a recent course of steroids, the pain switched from burning to aching. Pt notes the pain is more in the buttock and leg, and reports her right leg feels painful and tight, making ascending stairs and lifting her leg into the car difficult. Pt admits that she was looking at a chart, and I think it is my Piriformis muscle. I think that's what was wrong last time, so I've been doing the stretch I remember from two years ago. Prior Treatments and Tests 2.5 years s/p PT for same issue Future Testing and Treatments Planned Per PCP note, referral to Dr Armendariz if therapy does not decrease pt's symptoms Prior Functional Status Baseline Function- ADL's Independent Baseline Function- Mobility Independent Current Functional Impairments (Reported) Functional Limitations- Other Difficulty with pain and tightness ascending stairs and lifting R leg into car PT-OP-C Subjective Start: 10/26/18 12:26 Freq: Status: Active Protocol: Document 12/06/18 13:45 DCW (Rec: 12/06/18 14:22 DCW [id number]) OP-PT Subjective Patient Comments Patient Comments I've been bending and packing things up, and I'm still feeling pretty good. PT-OP-F Manual Assessment Start: 10/26/18 12:26 Freq: Status: Active Protocol: Document 10/26/18 11:15 DCW (Rec: 10/26/18 12:52 DCW [id number]) Manual Assessments Soft Tissue Assessment Soft Tissue Mobility Assessment Severe tone and tenderness to palpation 3/4: Wincing and withdraw on right piriformis Mild tone and tenderness to palpation 1/4: Complaint of pain along bilateral QL Joint Mobility Assessment Joint Mobility Assessment Tenderness to palpation 2/4: Pain with wincing along R SI, pt feels relief with palpation of L SI. No complaints of pain with palpation/mobilization of lumbar vertebrae. PT-OP-K Range of Motion Start: 10/26/18 12:26 Freq: Status: Active Protocol: Document 10/26/18 11:15 DCW (Rec: 10/26/18 12:52 DCW [id number]) Lumbar Spine Range of Motion Lumbar Spine Active Degrees Testing Position Standing Flexion 30 Extension 25 Lateral Flexion Left 49 Lateral Flexion Right 49 ROM Limitations Soft Tissue Tightness Comments Lateral flexion measured in cm from floor to finger tips Hip Goniometric Range of Motion Hip Left Passive Internal Rotation 35 External Rotation 45 Right Passive Internal Rotation 20 External Rotation 25 PT-OP-L Special Tests Start: 10/26/18 12:26 Freq: Status: Active Protocol: Document 10/26/18 11:15 DCW (Rec: 10/26/18 12:52 DCW [id number]) Special Tests Lumbar Spine Special Tests Lateral SI Compression Test Results Negative Anterior SI Shear Test Results Negative Vertical Spine Loading Test Results Negative NEY Test Results R Ipsilateral posterior hip pain Straight Leg Raise Test Results Negative Slump Test Results Negative Compression Test Results Negative PT-OP-M Strength Start: 10/26/18 12:26 Freq: Status: Active Protocol: Document 10/26/18 11:15 DCW (Rec: 10/26/18 12:52 DCW [id number]) Hip Strength Hip Manual Muscle Testing Right Flexion (L2) 4 Good Abduction 5 Normal Adduction 5 Normal External Rotation 4+ Good+ Internal Rotation 4+ Good+ Left Flexion (L2) 5 Normal Abduction 5 Normal Adduction 5 Normal External Rotation 5 Normal Internal Rotation 5 Normal Knee Strength Knee Manual Muscle Testing Right Flexion (S2) 5 Normal Extension (L3) 5 Normal Left Flexion (S2) 5 Normal Extension (L3) 5 Normal PT-OP-Q Treatments Start: 10/26/18 12:26 Freq: Status: Active Protocol: Document 12/06/18 13:45 DCW (Rec: 12/06/18 14:22 DCW [id number]) Gym Equipment Shuttle Balance Red Details Lateral Weight Shift Therapeutic Exercises Supine Exercises ITB stretch Supine Exercise Name ITB stretch Side right LTR Supine Exercise Name low trunk rotations Side bilateral Equipment Used 45 cm T-ball Reps/Minutes 10 hamstring str. Supine Exercise Name hamstring Str. Side bilateral Reps/Minutes 60 sec Piriformis Stretch Supine Exercise Name Figure-4, Yzel-yk-Rmeyrlwb Shoulder Side right Other Exercises SLS Other Exercise Name SLS Comments Focus on stability during R leg stance Resisted Ambulation Other Exercise Name Side-stepping Resistance Green Equipment Used T-band Gait Training Gait Activity hurdles Description single stance Device Used 1 gt Surface ground level Treatment Focus correct ipsilateral hip drop Comments single leg stance on R LE Manual Therapy Treatment Soft Tissue Mobilization TFL, IT band Mobilization Type Strumming,Sustained Pressure Intensity/Depth Moderate Body Position Sidelying Comments rolling pin 1 Body Location right piriformis Mobilization Type Myofascial Release,Sustained Pressure Intensity/Depth Moderate Body Position Sidelying PT-OP-R Modalities Start: 10/26/18 12:26 Freq: Status: Active Protocol: Document 12/06/18 13:45 DCW (Rec: 12/06/18 14:22 DCW [id number]) Electric Stimulation Electric Stimulation Interferential Current (IFC) Body Location Lumbar Spine Duration (Minutes) 15 Intensity 10 Patient Position Prone Combined With Heat/Cold Hot Pack PT-OP-T Assessment and Plan Start: 10/26/18 12:26 Freq: Status: Active Protocol: Document 12/06/18 13:45 DCW (Rec: 12/06/18 14:22 DCW [id number]) Physical Therapy Assessment Goals Three Impairment Restricted hip ROM in ER and IR Long-Term Goal (LTG) Right ER to 40? and IR to 35? LTG Duration 12/26/18 Two Impairment Pt hip flexion weakness Short Term Goal (STG) Pt to lift leg into car with no increased symptoms of pain or tightness STG Duration 11/25/18 Long-Term Goal (LTG) Pt to ascend stairs with no increased symptoms LTG Duration 12/26/18 One Impairment Pt does not have an appropriate home exercise program Short Term Goal (STG) Pt to be independent and compliant with an appropriate HEP STG Duration 11/25/18 Assessment Summary Assessment Pt doing well today, able to increased at-home activities with minimal back pain. Physical Therapy Plan Frequency and Duration Frequency of Treatment 2x/Week Duration of Treatment two months Plan of Care Start Date 10/26/18 Plan of Care End Date 12/26/18 Therapeutic Interventions Therapeutic Interventions Aquatic Therapy,Home Exercise Program,Joint Mobilizations, Manual Therapy,Self-Care/Home Management,Soft Tissue Mobilization,Therapeutic Activities,Therapeutic Exercises Next Visit Focus/Plan Next Note Type Treatment Note Next Visit Plan STM, Flexibililty exercises, strengthening, hip ROM, shuttle, biodex
--- NOTE | 2018-12-11 17:34 | PT.OTN ---
Current Diagnoses Other chronic pain (12/11/18) Pain in right hip (12/11/18) Stiffness of right hip, not elsewhere classified (12/11/18) Radiculopathy, lumbar region (12/11/18) Dorsalgia, unspecified (12/11/18) Muscle weakness (generalized) (12/11/18) Physical Therapy Treatment Note PT-OP-A Visit Information Start: 10/26/18 12:26 Freq: Status: Active Protocol: Document 12/11/18 17:29 GGD (Rec: 12/11/18 17:34 GGD [id number]) Out-Patient Physical Therapy Visit Information Visit Information Visit Type Treatment Note Visit Start Time 16:45 Visit Stop Time 17:40 Total Visit Minutes 55 Visit Number 8 Number of PRESS SETUP OPERATOR Visits 1 Evaluation Information Evaluation Date 10/26/18 PT-OP-B Current Condition Start: 10/26/18 12:26 Freq: Status: Active Protocol: Document 10/26/18 11:15 DCW (Rec: 10/26/18 12:52 DCW [id number]) Current Condition History of Current Condition Onset Date Two months Current Complaints right-sided low back and hip pain with radicular right leg pain History of Current Condition Pt is a 73 year old female presenting with a recurring history of right-sided low back and hip pain, with radicular symptoms into her right lower extremity. Pt reports that 2.5 years ago, she was treated in PT for the same symptoms, which seemed to help her quite a bit. Pt reports that she flared up her pain following the of her father over the summer, after which she was responsible for packing up and selling his home. Pt describes the initial pain as a burning sensation, however following a recent course of steroids, the pain switched from burning to aching. Pt notes the pain is more in the buttock and leg, and reports her right leg feels painful and tight, making ascending stairs and lifting her leg into the car difficult. Pt admits that she was looking at a chart, and I think it is my Piriformis muscle. I think that's what was wrong last time, so I've been doing the stretch I remember from two years ago. Prior Treatments and Tests 2.5 years s/p PT for same issue Future Testing and Treatments Planned Per PCP note, referral to Dr Billow if therapy does not decrease pt's symptoms Prior Functional Status Baseline Function- ADL's Independent Baseline Function- Mobility Independent Current Functional Impairments (Reported) Functional Limitations- Other Difficulty with pain and tightness ascending stairs and lifting R leg into car PT-OP-C Subjective Start: 10/26/18 12:26 Freq: Status: Active Protocol: Document 12/11/18 17:29 GGD (Rec: 12/11/18 17:34 GGD [id number]) OP-PT Subjective Patient Comments Patient Comments Pt states she doing better, but gets achy with doing home activities. PT-OP-F Manual Assessment Start: 10/26/18 12:26 Freq: Status: Active Protocol: Document 10/26/18 11:15 DCW (Rec: 10/26/18 12:52 DCW [id number]) Manual Assessments Soft Tissue Assessment Soft Tissue Mobility Assessment Severe tone and tenderness to palpation 3/4: Wincing and withdraw on right piriformis Mild tone and tenderness to palpation 1/4: Complaint of pain along bilateral QL Joint Mobility Assessment Joint Mobility Assessment Tenderness to palpation 2/4: Pain with wincing along R SI, pt feels relief with palpation of L SI. No complaints of pain with palpation/mobilization of lumbar vertebrae. PT-OP-K Range of Motion Start: 10/26/18 12:26 Freq: Status: Active Protocol: Document 10/26/18 11:15 DCW (Rec: 10/26/18 12:52 DCW [id number]) Lumbar Spine Range of Motion Lumbar Spine Active Degrees Testing Position Standing Flexion 30 Extension 25 Lateral Flexion Left 49 Lateral Flexion Right 49 ROM Limitations Soft Tissue Tightness Comments Lateral flexion measured in cm from floor to finger tips Hip Goniometric Range of Motion Hip Left Passive Internal Rotation 35 External Rotation 45 Right Passive Internal Rotation 20 External Rotation 25 PT-OP-L Special Tests Start: 10/26/18 12:26 Freq: Status: Active Protocol: Document 10/26/18 11:15 DCW (Rec: 10/26/18 12:52 DCW [id number]) Special Tests Lumbar Spine Special Tests Lateral SI Compression Test Results Negative Anterior SI Shear Test Results Negative Vertical Spine Loading Test Results Negative NEY Test Results R Ipsilateral posterior hip pain Straight Leg Raise Test Results Negative Slump Test Results Negative Compression Test Results Negative PT-OP-M Strength Start: 10/26/18 12:26 Freq: Status: Active Protocol: Document 10/26/18 11:15 DCW (Rec: 10/26/18 12:52 DCW [id number]) Hip Strength Hip Manual Muscle Testing Right Flexion (L2) 4 Good Abduction 5 Normal Adduction 5 Normal External Rotation 4+ Good+ Internal Rotation 4+ Good+ Left Flexion (L2) 5 Normal Abduction 5 Normal Adduction 5 Normal External Rotation 5 Normal Internal Rotation 5 Normal Knee Strength Knee Manual Muscle Testing Right Flexion (S2) 5 Normal Extension (L3) 5 Normal Left Flexion (S2) 5 Normal Extension (L3) 5 Normal PT-OP-Q Treatments Start: 10/26/18 12:26 Freq: Status: Active Protocol: Document 12/11/18 17:29 GGD (Rec: 12/11/18 17:34 GGD [id number]) Gym Equipment Shuttle Balance Red Details Lateral Weight Shift Therapeutic Exercises Supine Exercises ITB stretch Supine Exercise Name ITB stretch Side right LTR Supine Exercise Name low trunk rotations Side bilateral Equipment Used 45 cm T-ball Reps/Minutes 10 hamstring str. Supine Exercise Name hamstring Str. Side bilateral Reps/Minutes 60 sec Piriformis Stretch Supine Exercise Name Figure-4, Rary-ua-Zaiqykxn Shoulder Side right Other Exercises SLS Other Exercise Name SLS Comments Focus on stability during R leg stance Resisted Ambulation Other Exercise Name Side-stepping Resistance Green Equipment Used T-band Gait Training Gait Activity hurdles Description single stance Device Used 1 gt Surface ground level Treatment Focus correct ipsilateral hip drop Comments single leg stance on R LE Manual Therapy Treatment Soft Tissue Mobilization TFL, IT band Mobilization Type Strumming,Sustained Pressure Intensity/Depth Moderate Body Position Sidelying Comments rolling pin 1 Body Location right piriformis Mobilization Type Myofascial Release,Sustained Pressure Intensity/Depth Moderate Body Position Sidelying Self-Care/Home Management Treatment Education Patient Education Body Mechanics PT-OP-R Modalities Start: 10/26/18 12:26 Freq: Status: Active Protocol: Document 12/11/18 17:29 GGD (Rec: 12/11/18 17:34 GGD [id number]) Electric Stimulation Electric Stimulation Interferential Current (IFC) Body Location Lumbar Spine Duration (Minutes) 15 Intensity 10 Patient Position Prone Combined With Heat/Cold Hot Pack PT-OP-T Assessment and Plan Start: 10/26/18 12:26 Freq: Status: Active Protocol: Document 12/11/18 17:29 GGD (Rec: 12/11/18 17:34 GGD [id number]) Physical Therapy Assessment Goals Three Impairment Restricted hip ROM in ER and IR Metal Sprayer Goal (LTG) Right ER to 40? and IR to 35? LTG Duration 12/26/18 Two Impairment Pt hip flexion weakness Short Term Goal (STG) Pt to lift leg into car with no increased symptoms of pain or tightness STG Duration 11/25/18 Half-Way Goal (LTG) Pt to ascend stairs with no increased symptoms LTG Duration 12/26/18 One Impairment Pt does not have an appropriate home exercise program Short Term Goal (STG) Pt to be independent and compliant with an appropriate HEP STG Duration 11/25/18 Assessment Summary Assessment Pt improving with step stance and hip control. She needed cues for form with lifting from floor. Physical Therapy Plan Frequency and Duration Frequency of Treatment 2x/Week Duration of Treatment two months Plan of Care Start Date 10/26/18 Plan of Care End Date 12/26/18 Next Visit Focus/Plan Next Note Type Treatment Note Next Visit Plan STM, Flexibililty exercises, strengthening, hip ROM, shuttle,
--- NOTE | 2018-12-13 15:58 | PT.OTN ---
Current Diagnoses Other chronic pain (12/13/18) Pain in right hip (12/13/18) Stiffness of right hip, not elsewhere classified (12/13/18) Radiculopathy, lumbar region (12/13/18) Dorsalgia, unspecified (12/13/18) Muscle weakness (generalized) (12/13/18) Physical Therapy Treatment Note PT-OP-A Visit Information Start: 10/26/18 12:26 Freq: Status: Active Protocol: Document 12/13/18 15:20 DCW (Rec: 12/13/18 15:58 DCW [id number]) Out-Patient Physical Therapy Visit Information Visit Information Visit Type Treatment Note Visit Note Pt arrived 5 min late Visit Start Time 15:20 Visit Stop Time 16:10 Total Visit Minutes 50 Visit Number 9 Number of NEW ACCOUNTS BANKING REPRESENTATIVE Visits 0 Evaluation Information Evaluation Date 10/26/18 PT-OP-B Current Condition Start: 10/26/18 12:26 Freq: Status: Active Protocol: Document 10/26/18 11:15 DCW (Rec: 10/26/18 12:52 DCW [id number]) Current Condition History of Current Condition Onset Date Two months Current Complaints right-sided low back and hip pain with radicular right leg pain History of Current Condition Pt is a 73 year old female presenting with a recurring history of right-sided low back and hip pain, with radicular symptoms into her right lower extremity. Pt reports that 2.5 years ago, she was treated in PT for the same symptoms, which seemed to help her quite a bit. Pt reports that she flared up her pain following the of her father over the summer, after which she was responsible for packing up and selling his home. Pt describes the initial pain as a burning sensation, however following a recent course of steroids, the pain switched from burning to aching. Pt notes the pain is more in the buttock and leg, and reports her right leg feels painful and tight, making ascending stairs and lifting her leg into the car difficult. Pt admits that she was looking at a chart, and I think it is my Piriformis muscle. I think that's what was wrong last time, so I've been doing the stretch I remember from two years ago. Prior Treatments and Tests 2.5 years s/p PT for same issue Future Testing and Treatments Planned Per PCP note, referral to Dr Armendariz if therapy does not decrease pt's symptoms Prior Functional Status Baseline Function- ADL's Independent Baseline Function- Mobility Independent Current Functional Impairments (Reported) Functional Limitations- Other Difficulty with pain and tightness ascending stairs and lifting R leg into car PT-OP-C Subjective Start: 10/26/18 12:26 Freq: Status: Active Protocol: Document 12/13/18 15:20 DCW (Rec: 12/13/18 15:58 DCW [id number]) OP-PT Subjective Patient Comments Patient Comments It's not like it was before, it's not keeping me up at night, but I'm still doing enough to keep it flared up a little bit. PT-OP-F Manual Assessment Start: 10/26/18 12:26 Freq: Status: Active Protocol: Document 10/26/18 11:15 DCW (Rec: 10/26/18 12:52 DCW [id number]) Manual Assessments Soft Tissue Assessment Soft Tissue Mobility Assessment Severe tone and tenderness to palpation 3/4: Wincing and withdraw on right piriformis Mild tone and tenderness to palpation 1/4: Complaint of pain along bilateral QL Joint Mobility Assessment Joint Mobility Assessment Tenderness to palpation 2/4: Pain with wincing along R SI, pt feels relief with palpation of L SI. No complaints of pain with palpation/mobilization of lumbar vertebrae. PT-OP-K Range of Motion Start: 10/26/18 12:26 Freq: Status: Active Protocol: Document 10/26/18 11:15 DCW (Rec: 10/26/18 12:52 DCW [id number]) Lumbar Spine Range of Motion Lumbar Spine Active Degrees Testing Position Standing Flexion 30 Extension 25 Lateral Flexion Left 49 Lateral Flexion Right 49 ROM Limitations Soft Tissue Tightness Comments Lateral flexion measured in cm from floor to finger tips Hip Goniometric Range of Motion Hip Left Passive Internal Rotation 35 External Rotation 45 Right Passive Internal Rotation 20 External Rotation 25 PT-OP-L Special Tests Start: 10/26/18 12:26 Freq: Status: Active Protocol: Document 10/26/18 11:15 DCW (Rec: 10/26/18 12:52 DCW [id number]) Special Tests Lumbar Spine Special Tests Lateral SI Compression Test Results Negative Anterior SI Shear Test Results Negative Vertical Spine Loading Test Results Negative NEY Test Results R Ipsilateral posterior hip pain Straight Leg Raise Test Results Negative Slump Test Results Negative Compression Test Results Negative PT-OP-M Strength Start: 10/26/18 12:26 Freq: Status: Active Protocol: Document 10/26/18 11:15 DCW (Rec: 10/26/18 12:52 DCW [id number]) Hip Strength Hip Manual Muscle Testing Right Flexion (L2) 4 Good Abduction 5 Normal Adduction 5 Normal External Rotation 4+ Good+ Internal Rotation 4+ Good+ Left Flexion (L2) 5 Normal Abduction 5 Normal Adduction 5 Normal External Rotation 5 Normal Internal Rotation 5 Normal Knee Strength Knee Manual Muscle Testing Right Flexion (S2) 5 Normal Extension (L3) 5 Normal Left Flexion (S2) 5 Normal Extension (L3) 5 Normal PT-OP-Q Treatments Start: 10/26/18 12:26 Freq: Status: Active Protocol: Document 12/13/18 15:20 DCW (Rec: 12/13/18 15:58 DCW [id number]) Gym Equipment Shuttle Balance Red Details Lateral Weight Shift Therapeutic Exercises Supine Exercises ITB stretch Supine Exercise Name ITB stretch Side right LTR Supine Exercise Name low trunk rotations Side bilateral Equipment Used 45 cm T-ball Reps/Minutes 10 hamstring str. Supine Exercise Name hamstring Str. Side bilateral Reps/Minutes 60 sec Piriformis Stretch Supine Exercise Name Figure-4, Llyo-ac-Spttoqkd Shoulder Side right Other Exercises SLS Other Exercise Name SLS Comments Focus on stability during R leg stance Resisted Ambulation Other Exercise Name Side-stepping Resistance Green Equipment Used T-band Gait Training Gait Activity hurdles Description single stance Device Used 1 gt Surface ground level Treatment Focus correct ipsilateral hip drop Comments single leg stance on R LE Manual Therapy Treatment Soft Tissue Mobilization TFL, IT band Mobilization Type Strumming,Sustained Pressure Intensity/Depth Moderate Body Position Sidelying Comments rolling pin 1 Body Location right piriformis Mobilization Type Myofascial Release,Sustained Pressure Intensity/Depth Moderate Body Position Sidelying PT-OP-R Modalities Start: 10/26/18 12:26 Freq: Status: Active Protocol: Document 12/13/18 15:20 DCW (Rec: 12/13/18 15:58 DCW [id number]) Electric Stimulation Electric Stimulation Interferential Current (IFC) Body Location Lumbar Spine Duration (Minutes) 15 Intensity 10 Patient Position Prone Combined With Heat/Cold Hot Pack PT-OP-T Assessment and Plan Start: 10/26/18 12:26 Freq: Status: Active Protocol: Document 12/13/18 15:20 DCW (Rec: 12/13/18 15:58 DCW [id number]) Physical Therapy Assessment Goals Three Impairment Restricted hip ROM in ER and IR Sugar Mill Worker Goal (LTG) Right ER to 40? and IR to 35? LTG Duration 12/26/18 Two Impairment Pt hip flexion weakness Short Term Goal (STG) Pt to lift leg into car with no increased symptoms of pain or tightness STG Duration 11/25/18 Prison Goal (LTG) Pt to ascend stairs with no increased symptoms LTG Duration 12/26/18 One Impairment Pt does not have an appropriate home exercise program Short Term Goal (STG) Pt to be independent and compliant with an appropriate HEP STG Duration 11/25/18 Assessment Summary Assessment Pt feels like she has made good improvement, but I need to continue on my own, pt feels like she will be appropriate to discharge following her next appointment , and will continue doing her HEP independently Physical Therapy Plan Frequency and Duration Frequency of Treatment 2x/Week Duration of Treatment two months Plan of Care Start Date 10/26/18 Plan of Care End Date 12/26/18 Therapeutic Interventions Therapeutic Interventions Aquatic Therapy,Home Exercise Program,Joint Mobilizations, Manual Therapy,Self-Care/Home Management,Soft Tissue Mobilization,Therapeutic Activities,Therapeutic Exercises Next Visit Focus/Plan Next Note Type Discharge Summary Next Visit Plan STM, Flexibililty exercises, strengthening, hip ROM, shuttle, biodex
--- NOTE | 2018-12-18 12:51 | PT.OTN ---
Current Diagnoses Other chronic pain (12/18/18) Pain in right hip (12/18/18) Stiffness of right hip, not elsewhere classified (12/18/18) Radiculopathy, lumbar region (12/18/18) Dorsalgia, unspecified (12/18/18) Muscle weakness (generalized) (12/18/18) Physical Therapy Treatment Note PT-OP-A Visit Information Start: 10/26/18 12:26 Freq: Status: Active Protocol: Document 12/18/18 12:18 GGD (Rec: 12/18/18 12:33 GGD [id number]) Out-Patient Physical Therapy Visit Information Visit Information Visit Type Treatment Note Visit Start Time 12:10 Visit Stop Time 12:48 Total Visit Minutes 38 Visit Number 10 Number of CONSUMER RELATIONS COMPLAINT CLERK Visits 1 Evaluation Information Evaluation Date 10/26/18 PT-OP-B Current Condition Start: 10/26/18 12:26 Freq: Status: Active Protocol: Document 10/26/18 11:15 DCW (Rec: 10/26/18 12:52 DCW [id number]) Current Condition History of Current Condition Onset Date Two months Current Complaints right-sided low back and hip pain with radicular right leg pain History of Current Condition Pt is a 73 year old female presenting with a recurring history of right-sided low back and hip pain, with radicular symptoms into her right lower extremity. Pt reports that 2.5 years ago, she was treated in PT for the same symptoms, which seemed to help her quite a bit. Pt reports that she flared up her pain following the of her father over the summer, after which she was responsible for packing up and selling his home. Pt describes the initial pain as a burning sensation, however following a recent course of steroids, the pain switched from burning to aching. Pt notes the pain is more in the buttock and leg, and reports her right leg feels painful and tight, making ascending stairs and lifting her leg into the car difficult. Pt admits that she was looking at a chart, and I think it is my Piriformis muscle. I think that's what was wrong last time, so I've been doing the stretch I remember from two years ago. Prior Treatments and Tests 2.5 years s/p PT for same issue Future Testing and Treatments Planned Per PCP note, referral to Dr Armendariz if therapy does not decrease pt's symptoms Prior Functional Status Baseline Function- ADL's Independent Baseline Function- Mobility Independent Current Functional Impairments (Reported) Functional Limitations- Other Difficulty with pain and tightness ascending stairs and lifting R leg into car PT-OP-C Subjective Start: 10/26/18 12:26 Freq: Status: Active Protocol: Document 12/18/18 12:18 GGD (Rec: 12/18/18 12:33 GGD [id number]) OP-PT Subjective Patient Comments Patient Comments Pt states she doing her HEP and feels ready for D/C. She feels 50% better overall. PT-OP-F Manual Assessment Start: 10/26/18 12:26 Freq: Status: Active Protocol: Document 10/26/18 11:15 DCW (Rec: 10/26/18 12:52 DCW [id number]) Manual Assessments Soft Tissue Assessment Soft Tissue Mobility Assessment Severe tone and tenderness to palpation 3/4: Wincing and withdraw on right piriformis Mild tone and tenderness to palpation 1/4: Complaint of pain along bilateral QL Joint Mobility Assessment Joint Mobility Assessment Tenderness to palpation 2/4: Pain with wincing along R SI, pt feels relief with palpation of L SI. No complaints of pain with palpation/mobilization of lumbar vertebrae. PT-OP-K Range of Motion Start: 10/26/18 12:26 Freq: Status: Active Protocol: Document 12/18/18 12:18 GGD (Rec: 12/18/18 12:33 GGD [id number]) Hip Goniometric Range of Motion Hip Right Passive Internal Rotation 23 External Rotation 32 PT-OP-L Special Tests Start: 10/26/18 12:26 Freq: Status: Active Protocol: Document 10/26/18 11:15 DCW (Rec: 10/26/18 12:52 DCW [id number]) Special Tests Lumbar Spine Special Tests Lateral SI Compression Test Results Negative Anterior SI Shear Test Results Negative Vertical Spine Loading Test Results Negative NEY Test Results R Ipsilateral posterior hip pain Straight Leg Raise Test Results Negative Slump Test Results Negative Compression Test Results Negative PT-OP-M Strength Start: 10/26/18 12:26 Freq: Status: Active Protocol: Document 10/26/18 11:15 DCW (Rec: 10/26/18 12:52 DCW [id number]) Hip Strength Hip Manual Muscle Testing Right Flexion (L2) 4 Good Abduction 5 Normal Adduction 5 Normal External Rotation 4+ Good+ Internal Rotation 4+ Good+ Left Flexion (L2) 5 Normal Abduction 5 Normal Adduction 5 Normal External Rotation 5 Normal Internal Rotation 5 Normal Knee Strength Knee Manual Muscle Testing Right Flexion (S2) 5 Normal Extension (L3) 5 Normal Left Flexion (S2) 5 Normal Extension (L3) 5 Normal PT-OP-Q Treatments Start: 10/26/18 12:26 Freq: Status: Active Protocol: Document 12/18/18 12:18 GGD (Rec: 12/18/18 12:33 GGD [id number]) Gym Equipment Shuttle Balance Red Details Lateral Weight Shift Therapeutic Exercises Other Exercises SLS Other Exercise Name SLS Comments Focus on stability during R leg stance Manual Therapy Treatment Soft Tissue Mobilization TFL, IT band Mobilization Type Strumming,Sustained Pressure Intensity/Depth Moderate Body Position Sidelying Comments rolling pin 1 Body Location right piriformis Mobilization Type Myofascial Release,Sustained Pressure Intensity/Depth Moderate Body Position Sidelying PT-OP-R Modalities Start: 10/26/18 12:26 Freq: Status: Active Protocol: Document 12/18/18 12:18 GGD (Rec: 12/18/18 12:33 GGD [id number]) Electric Stimulation Electric Stimulation Interferential Current (IFC) Body Location Lumbar Spine Duration (Minutes) 15 Intensity 10 Patient Position Prone Combined With Heat/Cold Hot Pack PT-OP-T Assessment and Plan Start: 10/26/18 12:26 Freq: Status: Active Protocol: Document 12/18/18 12:18 GGD (Rec: 12/18/18 12:33 GGD [id number]) Physical Therapy Assessment Goals Three Impairment Restricted hip ROM in ER and IR Penitentiary Goal (LTG) Right ER to 40? and IR to 35? 12/18/18: making progress ER increased to 32 and IR 23 LTG Duration 12/26/18 Two Impairment Pt hip flexion weakness Short Term Goal (STG) Pt to lift leg into car with no increased symptoms of pain or tightness 12/18/18: met STG Duration met Penitentiary Goal (LTG) Pt to ascend stairs with no increased symptoms 12/18/18: no pain reported with stairs, mild soreness after LTG Duration 12/26/18 One Impairment Pt does not have an appropriate home exercise program Short Term Goal (STG) Pt to be independent and compliant with an appropriate HEP STG Duration 12/18/18 Met Assessment Summary Assessment Pt improving with strength and ROM. She improved tolerance to transfers in and out of car . Pt has good understanding of HEP. Physical Therapy Plan Frequency and Duration Frequency of Treatment 2x/Week Duration of Treatment two months Plan of Care Start Date 10/26/18 Plan of Care End Date 12/26/18 Discharge Physical Therapy Discharge Reasons Patient Request Next Visit Focus/Plan Next Note Type Discharge Summary
--- NOTE | 2018-12-18 15:58 | PT.OPDS ---
Current Diagnoses Other chronic pain (12/18/18) Pain in right hip (12/18/18) Stiffness of right hip, not elsewhere classified (12/18/18) Radiculopathy, lumbar region (12/18/18) Dorsalgia, unspecified (12/18/18) Muscle weakness (generalized) (12/18/18) Visit Care Team Role Provider Type Ulises Loyd MD Attending Provider Physician Primary Care Provider Specialty: Internal Medicine Address: [address] [place] [address], [address], [facility] Email: [email or web address] Visit Number Visit Number 10 Discharge Summary PT-OP-B Current Condition Start: 10/26/18 12:26 Freq: Status: Active Protocol: Document 10/26/18 11:15 DCW (Rec: 10/26/18 12:52 DCW [id number]) Current Condition History of Current Condition Onset Date Two months Current Complaints right-sided low back and hip pain with radicular right leg pain History of Current Condition Pt is a 73 year old female presenting with a recurring history of right-sided low back and hip pain, with radicular symptoms into her right lower extremity. Pt reports that 2.5 years ago, she was treated in PT for the same symptoms, which seemed to help her quite a bit. Pt reports that she flared up her pain following the of her father over the summer, after which she was responsible for packing up and selling his home. Pt describes the initial pain as a burning sensation, however following a recent course of steroids, the pain switched from burning to aching. Pt notes the pain is more in the buttock and leg, and reports her right leg feels painful and tight, making ascending stairs and lifting her leg into the car difficult. Pt admits that she was looking at a chart, and I think it is my Piriformis muscle. I think that's what was wrong last time, so I've been doing the stretch I remember from two years ago. Prior Treatments and Tests 2.5 years s/p PT for same issue Future Testing and Treatments Planned Per PCP note, referral to Dr Armendariz if therapy does not decrease pt's symptoms Prior Functional Status Baseline Function- ADL's Independent Baseline Function- Mobility Independent Current Functional Impairments (Reported) Functional Limitations- Other Difficulty with pain and tightness ascending stairs and lifting R leg into car PT-OP-C Subjective Start: 10/26/18 12:26 Freq: Status: Active Protocol: Document 12/18/18 12:18 GGD (Rec: 12/18/18 12:33 GGD [id number]) OP-PT Subjective Patient Comments Patient Comments Pt states she doing her HEP and feels ready for D/C. She feels 50% better overall. PT-OP-F Manual Assessment Start: 10/26/18 12:26 Freq: Status: Active Protocol: Document 10/26/18 11:15 DCW (Rec: 10/26/18 12:52 DCW [id number]) Manual Assessments Soft Tissue Assessment Soft Tissue Mobility Assessment Severe tone and tenderness to palpation 3/4: Wincing and withdraw on right piriformis Mild tone and tenderness to palpation 1/4: Complaint of pain along bilateral QL Joint Mobility Assessment Joint Mobility Assessment Tenderness to palpation 2/4: Pain with wincing along R SI, pt feels relief with palpation of L SI. No complaints of pain with palpation/mobilization of lumbar vertebrae. PT-OP-K Range of Motion Start: 10/26/18 12:26 Freq: Status: Active Protocol: Document 12/18/18 12:18 GGD (Rec: 12/18/18 12:33 GGD [id number]) Hip Goniometric Range of Motion Hip Right Passive Internal Rotation 23 External Rotation 32 PT-OP-L Special Tests Start: 10/26/18 12:26 Freq: Status: Active Protocol: Document 10/26/18 11:15 DCW (Rec: 10/26/18 12:52 DCW [id number]) Special Tests Lumbar Spine Special Tests Lateral SI Compression Test Results Negative Anterior SI Shear Test Results Negative Vertical Spine Loading Test Results Negative NEY Test Results R Ipsilateral posterior hip pain Straight Leg Raise Test Results Negative Slump Test Results Negative Compression Test Results Negative PT-OP-M Strength Start: 10/26/18 12:26 Freq: Status: Active Protocol: Document 10/26/18 11:15 DCW (Rec: 10/26/18 12:52 DCW [id number]) Hip Strength Hip Manual Muscle Testing Right Flexion (L2) 4 Good Abduction 5 Normal Adduction 5 Normal External Rotation 4+ Good+ Internal Rotation 4+ Good+ Left Flexion (L2) 5 Normal Abduction 5 Normal Adduction 5 Normal External Rotation 5 Normal Internal Rotation 5 Normal Knee Strength Knee Manual Muscle Testing Right Flexion (S2) 5 Normal Extension (L3) 5 Normal Left Flexion (S2) 5 Normal Extension (L3) 5 Normal PT-OP-T Assessment and Plan Start: 10/26/18 12:26 Freq: Status: Active Protocol: Document 12/18/18 15:55 DCW (Rec: 12/18/18 15:58 DCW [id number]) Physical Therapy Assessment Goals Three Impairment Restricted hip ROM in ER and IR Long-Term Goal (LTG) Right ER to 40? and IR to 35? 12/18/18: making progress ER increased to 32 and IR 23 LTG Duration 12/26/18 Two Impairment Pt hip flexion weakness Short Term Goal (STG) Pt to lift leg into car with no increased symptoms of pain or tightness 12/18/18: met STG Duration met Gang Hemstitching Machine Operator Goal (LTG) Pt to ascend stairs with no increased symptoms 12/18/18: no pain reported with stairs, mild soreness after LTG Duration 12/26/18 One Impairment Pt does not have an appropriate home exercise program Short Term Goal (STG) Pt to be independent and compliant with an appropriate HEP STG Duration 12/18/18 Met Assessment Summary Assessment Pt progressing toward meeting goals, confident with her HEP. Pt feels she is now appropriate for discharge, and she will continue to work on her own. Pt to be discharged at this time, will require a new referral in order to return for any further skilled therapy Physical Therapy Plan Frequency and Duration Frequency of Treatment 2x/Week Duration of Treatment two months Plan of Care Start Date 10/26/18 Plan of Care End Date 12/26/18 Discharge Physical Therapy Discharge Reasons Patient Request Next Visit Focus/Plan Next Note Type Discharge Summary
== END 2018-12-18 12:57 ==
LOC: PHYS 12:00
PROVIDERS: PCP Internal Medicine; Visit Provider Internal Medicine
DX: M54.16 Radiculopathy, lumbar region (principal); M54.9 Dorsalgia, unspecified; G89.29 Other chronic pain; M25.651 Stiffness of right hip, not elsewhere classified; M25.551 Pain in right hip; M62.81 Muscle weakness (generalized)
CPT/HCPCS: 97014; 97110; 97116; 97140; 97161; G0283

== ENCOUNTER → 2019-02-22 09:56 | Outpatient (CLI) | payer MEDICARE, OTHER, SELFPAY ==
--- NOTE | 2019-02-22 09:57 | DI.RAD.S_ITS ---
PROCEDURE: FL BARIUM SWALLOW INDICATIONS: reflux, epigastric pain, rule out spasm COMPARISON: None. FINDINGS: Function: There is normal esophageal peristalsis. No elicited gastroesophageal reflux. There is normal transit of a calibrated barium tablet through the esophagus into the stomach. Morphology: Air-contrast images demonstrate normal mucosal morphology. Single contrast views show no esophageal strictures, extrinsic mass effects, or diverticula. Limited images of the stomach demonstrate normal appearance. IMPRESSION: Unremarkable double contrast barium swallow study. No significant gastroesophageal reflux is noted during the study. Dictated by: Mt Huffman M.D. on 02/22/2019 at 11:56 Approved by: Mt Huffman M.D. on 02/22/2019 at 12:00
== END ==
PROVIDERS: PCP Internal Medicine; Visit Provider Surgery
DX: K21.9 Gastro-esophageal reflux disease without esophagitis (principal); R10.13 Epigastric pain
CPT/HCPCS: 74220

== ENCOUNTER 2019-03-08 10:18 | Day surgery (SDC) | payer MEDICARE, OTHER, SELFPAY ==
[2019-03-08] VITALS (8 sets, daily range): BP systolic 126–153; BP diastolic 69–92; PULSE 60–68; RESP 10–18; TEMP 36–36.2; O2SAT 94–194; BMI 29.2
--- NOTE | 2019-03-08 | PATH_ITS ---
[facility] Accession Number: [id number] . 01 Material submitted: . PART A: gastrointestinal site - GASTRIC ANTRUM BIOPSY PART B: esophagus - DISTAL ESOPHAGUS BIOPSIES . 02 Diagnosis: A. Stomach, Antrum, Biopsy: Antral mucosa with no diagnostic abnormality. Negative for Helicobacter by immunohistochemistry. Negative for intestinal metaplasia. Negative for dysplasia and malignancy. . B. Distal Esophagus, Biopsies: Squamocolumnar junctional mucosa with mild active inflammation. Negative for intestinal metaplasia by alcian blue stain. Negative for dysplasia and malignancy. MRV 03/12/2019 1319 Local . 02 Electronically signed: . Abbey Grace MD, Pathologist NPI- [id number] . 01 Gross description: . Part A: GASTRIC ANTRUM BIOPSY: Received in formalin is 1 fragment(s) of min, soft tissue measuring 0.3 x 0.2 x 0.2 cm submitted entirely in 1 cassette(s) Part B: DISTAL ESOPHAGUS BIOPSIES: Received in formalin are 2 fragment(s) of min, soft tissue measuring 0.2 x 0.2 x 0.1 cm to 0.1 x 0.1 x 0.1 cm submitted entirely in 1 cassette(s) /QBJ 03/09/2019 0526 Local . 02 Microscopic: . A. An immunohistochemical stain was performed to evaluate for Helicobacter organisms and is negative. The control stain showed appropriate reactivity. . B. An alcian blue stain was performed to evaluate for intestinal metaplasia and is negative. The control stain showed appropriate reactivity. . * This test was developed and its performance characteristics determined by [employer]. It has not been cleared or approved by the U.S. Food and Drug Administration. The FDA has determined that such clearance or approval is not necessary. This test is used for clinical purposes. It should not be regarded as investigational or for research. . 02 Pathologist provided ICD-10: K21.0 . 02 CPT . 890384, 687425, C97986, 353934 Performed at: 01 [facility] [address] [address], [place], [place] [id number] MD Terry Bonner MD Phone: [phone] Performed at: 02 [facility] [address] [place] [id number] MD Abbey Grace MD Phone: [phone]
[2019-03-08] MEDS: SODIUM CHLORIDE 0.9% 1,000 ML 200 ML IV (10:57)
--- NOTE | 2019-03-08 11:38 | PM.PREOP ---
Pre-operative Note Interval Note History & Physical reviewed/Exam performed by Physician: Yes Changes to H&P: No ASA Class (for procedural sedation): II
--- NOTE | 2019-03-08 12:10 | PM.OP.ENDO ---
Operative Date/Time/Diagnoses Date of procedure: 03/08/19 Time of procedure: 12:10 Pre-op diagnosis: acid reflux, dysphagia Post-op diagnosis: other (Schatzki ring, Hill grade 4 hiatal hernia, antral gastritis) Procedure & Clinicians Study performed: Esophagogastroduodenoscopies, with biopsies of the gastric antrum and distal esophagus Same procedure as scheduled: Yes Indications: Acid reflux, dysphagia Surgeon: Monik Armstrong Procedure Notes SCOAP/Timeout: Performed Procedure in detail: The patient was brought to the room and placed in left lateral decubitus position with all bony prominences padded. A time-out was performed and then the patient was given procedural sedation starting with 2 mg of Versed and [100] mcg of fentanyl. Total of 5 mg of Versed and 150 micro g of fentanyl were given for the entire procedure. Vitals were monitored throughout the procedure and remained stable. Once adequately sedated the procedure was begun. The gastroscope was passed across the tongue into the esophagus without incident. A tubular view of the esophagus was maintained as the scope was advanced down the esophagus into the stomach. In the stomach the scope was passed through the pylorus and into the duodenal bulb, it was then flexed around the C-loop into the 2nd and 3rd portions of the duodenum. The duodenum appeared normal, without any signs of ulcers or inflammation. Coming back out into the antrum there was moderate antral gastritis, and biopsies were taken at this site. There were no ulcers seen or signs of active bleeding or polyps. I then retroflexed and looked up to the cardia, there was a Hill grade 4 hiatal hernia, with significant gaping of the esophagus around the scope. I then retracted the scope out of the stomach and there was a wide GE junction with a Schatzki ring right at the Z-line. A balloon dilator was passed through the scope and expanded within the ring, but it was larger than the largest dilator which was 20 mm, so no dilation procedure was performed. I then took biopsies around the edge of the Schatzki ring and distal esophagus. The Z-line and Schatzki ring were at 32cm. The crural pinch was at 35 cm. There was a small tongue of gastric mucosa coming over the ring and into the esophagus. This was biopsied. The scope was then withdrawn from the esophagus. This concluded the procedure The patient tolerated the procedure well and was transferred to the PACU in stable condition. Sedation minutes: 25 Findings: gastritis, hiatal hernia and stricture Specimen(s): other (Biopsies of gastric antrum and distal esophagus) Complications: none Impression: Evidence of reflux esophagitis, gastritis Post-procedure Recommendations: Other recommendation (Continue PPI twice daily, follow up with biopsy results) Follow up: as needed Disposition: PACU
[2019-03-08] MEDS: LIDOCAINE 4% SOLN 50 ML 20 ML TOP (12:11)
[2019-03-08] MEDS: fentaNYL 250 MCG/5 ML INJ IV (12:12)
[2019-03-08] MEDS: MIDAZOLAM 5 MG/5 ML VIAL IV (12:13)
== END 2019-03-08 13:05 | disposition home or self-care (01) ==
PROVIDERS: PCP Internal Medicine; Visit Provider Surgery
PROC: 0DJ08ZZ Inspection of Upper Intestinal Tract, Via Natural or Artificial Opening Endoscopic (ICD-10-PCS; CPT 43235; principal; 2019-03-08 11:30)
DX: K21.0 Gastro-esophageal reflux disease with esophagitis (principal); R13.10 Dysphagia, unspecified; G47.33 Obstructive sleep apnea (adult) (pediatric); J45.909 Unspecified asthma, uncomplicated; F41.9 Anxiety disorder, unspecified; K22.2 Esophageal obstruction; K44.9 Diaphragmatic hernia without obstruction or gangrene; K29.70 Gastritis, unspecified, without bleeding
CPT/HCPCS: 43239; 99152; J2250; J3010

== ENCOUNTER → 2019-11-25 10:48 | Outpatient (CLI) | payer MEDICARE, OTHER, SELFPAY ==
[2019-11-25 12:19] LABS: Alanine Aminotransferase 24 IU/L (<35); Albumin 4.1 g/dL (3.5-5.0); Albumin Globulin Ratio 1.4 (1.0-2.8); Alkaline Phosphatase 76 U/L (38-126); Aspartate Aminotransferase 31 IU/L (14-36); BUN Creatinine Ratio 18.9 (6-22); Bilirubin Total 0.5 mg/dL (0.2-1.3); Blood Urea Nitrogen 14 mg/dL (7-17); Carbon Dioxide 30 mmol/L (22-32); Chloride 98 mmol/L (98-107); Cholesterol 222 mg/dL (140-199); Estimated Glomerular Filt Rate > 60.0 mL/min (>60); Glucose 96 mg/dL (80-110); HDL Cholesterol 96 mg/dL (40-60); HEMOLYSIS < 15 (0-50); LDL Cholesterol Calculated 110 mg/dL (<100); Potassium 4.6 mmol/L (3.4-5.1); Sodium 132 mmol/L (137-145); Total Protein 7.1 g/dL (6.3-8.2); Triglycerides 82 mg/dL (35-150)
[2019-11-25 12:48] LABS: TSH w/ Reflex to FT4 1.09 uIU/mL (0.47-4.68)
== END ==
PROVIDERS: PCP Internal Medicine; Referring Provider Internal Medicine; Visit Provider Internal Medicine
DX: F32.4 Major depressive disorder, single episode, in partial remission (principal); K21.9 Gastro-esophageal reflux disease without esophagitis; Z13.1 Encounter for screening for diabetes mellitus; Z13.220 Encounter for screening for lipoid disorders; Z13.6 Encounter for screening for cardiovascular disorders
CPT/HCPCS: 36415; 80053; 80061; 84443

== ENCOUNTER → 2019-12-28 14:04 | Outpatient (CLI) | payer MEDICARE, OTHER, SELFPAY ==
--- NOTE | 2019-12-28 14:06 | DI.MG.S_ITS ---
BILATERAL DIGITAL SCREENING MAMMOGRAM 3D/2D WITH CAD: 12/28/2019 CLINICAL: Routine screening. Comparison is made to exams dated: 04/17/2017 mammogram, 03/29/2016 mammogram, and 02/09/2015 mammogram - [facility]. There are scattered fibroglandular elements in both breasts. Current study was also evaluated with a Computer Aided Detection (CAD) system. There are benign vascular calcifications in both breasts. There is a mole marker on the left breast. No significant masses, calcifications, or other findings are seen in either breast. There has been no significant interval change. IMPRESSION: BENIGN There is no mammographic evidence of malignancy. A 1 year screening mammogram is recommended. This exam was interpreted at Station ID: [id number]. NOTE: For mammograms, a report in lay terms will be sent to the patient. Approximately 15% of breast malignancies will not be visualized mammographically. In the management of a palpable breast mass, a negative mammogram must not discourage biopsy of a clinically suspicious lesion. Electronically Signed By: Aureliano Bourgeois acr/dolly:12/29/2019 18:32:09 letter sent: Normal Exam ACR BI-RADS Category 2: Benign Finding(s) [id number]
== END ==
PROVIDERS: PCP Internal Medicine; Referring Provider Internal Medicine; Visit Provider Internal Medicine
DX: Z12.31 Encounter for screening mammogram for malignant neoplasm of breast (principal)
CPT/HCPCS: 77063; 77067

== ENCOUNTER → 2020-07-10 11:57 | Outpatient (CLI) | payer MEDICARE, OTHER, SELFPAY ==
--- NOTE | 2020-07-10 11:58 | DI.RAD.S_ITS ---
PROCEDURE: XR CERVICAL SPINE 2V OR 3V INDICATIONS: neck pain TECHNIQUE: 3 view(s) of the cervical spine were acquired. COMPARISON: None. FINDINGS: Bones: No fractures or dislocations to the T1 level. The lateral masses of C1 appear intact on the odontoid view. No suspicious bony lesions. Braid material in hair lies to the left of midline on the frontal view. Airing is partially obscure visualization of the base of the dens. Soft tissues: No prevertebral soft tissue swelling. IMPRESSION: Mild degenerative disc disease C5-6 and C6-7. No trauma found. Overlapping external structures as noted. Dictated by: Manuel Eckert M.D. on 07/10/2020 at 14:53 Approved by: Manuel Eckert M.D. on 07/10/2020 at 14:55
== END ==
PROVIDERS: PCP Internal Medicine; Referring Provider Internal Medicine; Visit Provider Internal Medicine
DX: M50.322 Other cervical disc degeneration at C5-C6 level (principal)
CPT/HCPCS: 72040

== ENCOUNTER 2020-09-09 15:15 | Outpatient (RCR) | payer MEDICARE, OTHER, SELFPAY ==
--- NOTE | 2020-08-06 15:08 | PT.OIE ---
Current Diagnoses Stiffness of other specified joint, not elsewhere classified (08/06/20) Cervicalgia (08/06/20) Past Medical History (Last Reviewed 03/14/19 @ 14:49 by Monik Armstrong MD) Anxiety (~2001) Asthma Bilateral medial epicondylitis of elbow joint (2004) Cataract, right eye (2013) Cervical spine pain (~1999) Chronic back pain (2003) Chronic headaches DVT (deep venous thrombosis) (2008) Fibromyalgia (~1999) Foot pain, left (~2009) GERD (gastroesophageal reflux disease) (~2004) Major depressive disorder in partial remission Recurrent sinusitis (~1999) Right hip pain (2005) Shoulder pain Sleep apnea (~1999) Past Surgical History (Last Reviewed 03/14/19 @ 14:49 by Monik Armstrong MD) Anesthesia History of basal cell carcinoma (BCC) excision (06/14/11) History of gynecologic surgery History of open reduction and internal fixation (ORIF) procedure (09/30/15) History of right cataract surgery (2013) Visit Care Team Role Provider Type Ulises Loyd MD Attending Provider Physician Family Provider Primary Care Provider Referring Provider Specialty: Internal Medicine Address: [address] [place] [address], [address], [facility] Email: [email or web address] Physical Therapy Initial Evaluation PT-OP-A Visit Information Start: 08/06/20 14:30 Freq: Status: Active Protocol: Document 08/06/20 13:45 DCW (Rec: 08/06/20 14:31 DCW [id number]) Out-Patient Physical Therapy Visit Information Visit Information Visit Type Initial Evaluation Visit Start Time 13:45 Visit Stop Time 14:30 Total Visit Minutes 45 Visit Number 1 Number of ROVING WINDER Visits 0 Evaluation Information Evaluation Date 08/06/20 PT-OP-B Current Condition Start: 08/06/20 14:30 Freq: Status: Active Protocol: Document 08/06/20 13:45 DCW (Rec: 08/06/20 14:56 DCW [id number]) Current Condition History of Current Condition Onset Date 2 years Current Complaints Neck pain/stiffness History of Current Condition Pt is a 75 year old female presenting with a 1.5-2 year history of neck pain and stiffness. Pt notes it has been worsening over the last few years, and finally got to a point where she felt she had to bring it up to Dr Loyd. Pt reports any heavier -duty activity, such as gardening, cooking, and using her weed-kiran, as well as sitting for too long in her recliner, all cause neck pain. Pt notes some occasional left arm pain. Treatment Goals Patient/Caregiver Goals I want to reduce all this tension in my neck. I feel like it is just too much. PT-OP-C Subjective Start: 08/06/20 14:30 Freq: Status: Active Protocol: Document 08/06/20 13:45 DCW (Rec: 08/06/20 14:56 DCW [id number]) OP-PT Subjective Patient Comments Patient Comments It's mainly in the back of my neck, sometimes it comes up over the top of my head to my forehead. Patient Reported Progress Worse Patient Questionnaires Quick Dash- Upper Extremity Quick Dash UE Score 34.09% Quick Dash UE Impairment 20 to 39% Impaired (Score 20- 39) PT-OP-F Manual Assessment Start: 08/06/20 14:30 Freq: Status: Active Protocol: Document 08/06/20 13:45 DCW (Rec: 08/06/20 14:56 DCW [id number]) Manual Assessments Soft Tissue Assessment Soft Tissue Mobility Assessment Severe hypertonia along L SCM, scalenes, upper trap, levator scap Moderate hypertonia along R SCM, scalenes, upper trap, levator scap Joint Mobility Assessment Joint Mobility Assessment Soft tissue tightness results in limited cervical ROM. At rest, pt displays a 10? R cervical rotation and a 5? L lateral flexion PT-OP-J Posture/Palpation/Skin Start: 08/06/20 14:30 Freq: Status: Active Protocol: Document 08/06/20 13:45 DCW (Rec: 08/06/20 14:56 DCW [id number]) Posture Evaluation Position Sitting Evaluation View Anterior Head/C-Spine Posture Rotated Right,Side Bent Left PT-OP-K Range of Motion Start: 08/06/20 14:30 Freq: Status: Active Protocol: Document 08/06/20 13:45 DCW (Rec: 08/06/20 14:56 DCW [id number]) Cervical Spine Range of Motion Cervical Spine Active Degrees Testing Position Sitting Flexion 30 Extension 20 Rotation Left 32 Rotation Right 68 Lateral Flexion Left 15 Lateral Flexion Right 30 ROM Limitations Soft Tissue Tightness, Contracture,Muscle Tone,Pain PT-OP-L Special Tests Start: 08/06/20 14:30 Freq: Status: Active Protocol: Document 08/06/20 13:45 DCW (Rec: 08/06/20 14:56 DCW [id number]) Special Tests Cervical Spine Special Tests Spurling's Test Test Results Negative Traction Test Results Pain relief Passive Neck Flexion Test Results Negative Foraminal Compression Test Results Positive PT-OP-Q Treatments Start: 08/06/20 14:30 Freq: Status: Active Protocol: Document 08/06/20 13:45 DCW (Rec: 08/06/20 14:56 DCW [id number]) Therapeutic Exercises Sitting Exercises 2 Sitting Exercise Name SCM Stretch Comments HEP 1 Sitting Exercise Name Scalene stretch Side bilateral Comments HEP Manual Therapy Treatment Soft Tissue Mobilization 3 Body Location Suboccipitals Mobilization Type Strumming,Sustained Pressure Intensity/Depth Moderate Body Position Hooklying 2 Body Location Upper Trap Mobilization Type Strumming,Sustained Pressure Intensity/Depth Moderate Body Position Hooklying 1 Body Location Cervical Paraspinals Mobilization Type Sustained Pressure,Trigger Point Release Intensity/Depth Moderate Body Position Hooklying PT-OP-T Assessment and Plan Start: 08/06/20 14:30 Freq: Status: Active Protocol: Document 08/06/20 13:45 DCW (Rec: 08/06/20 15:08 DCW [id number]) Physical Therapy Assessment Rehab Potential Rehabilitation Potential Good Evaluation Complexity Number of Personal Factors/Comorbidities 1-2 Number of Body Systems Impaired 1-2 Clinical Presentation at Evaluation Stable Impairments Impairments Functional Activities, Functional Mobility,Pain,ROM, Soft Tissue Mobility,Tone Goals Three Impairment Significant restriction in cervical ROM Sample Tester Goal (LTG) Pt to present with at least 45 ? bilateral lateral flexion and 70? bilateral cervical rotation to ensure she can properly turn head to look at traffic while driving. LTG Duration 10/06/20 Two Impairment Pt exhibits a 10? right cervical rotation and 5? left SB at rest Sample Tester Goal (LTG) Pt to sit in a relaxed position with her head aligned in neutral 100% of the time LTG Duration 10/06/20 One Impairment Pt does not have an appropriate home exercise program Short Term Goal (STG) Pt to be independent and compliant with an appropriate HEP STG Duration 09/05/20 Assessment Summary Assessment Pt presents with significant tone and stiffness throughout her cervical spine. Hypertonia restricts cervical ROM, and her tight left SCM is creating a right cervical rotation/ left lateral flexion of her head when at rest. Difficult to get good results with cervical special testing due to severe tone and soreness limiting positioning. Pt should benefit from skilled therapy focusing on flexibility, STM, decreasing muscle tone, and pain control. Physical Therapy Plan Frequency and Duration Frequency of Treatment 2x/Week Duration of Treatment Two months Plan of Care Start Date 08/06/20 Plan of Care End Date 10/06/20 Therapeutic Interventions Therapeutic Interventions Home Exercise Program,Joint Mobilizations,Manual Therapy, Patient/Caregiver Education, Self-Care/Home Management,Soft Tissue Mobilization,Taping, Therapeutic Activities, Therapeutic Exercises Modalities Cold Pack/Ice Massage,Electric Stimulation,Hot Packs, Ultrasound Next Visit Focus/Plan Next Note Type Treatment Note Next Visit Plan Cervical STM, Flexibility exercises
--- NOTE | 2020-08-06 15:09 | PT.OPPOC ---
Physical, Occupational & Speech Therapy At [facility] Current Diagnoses Stiffness of other specified joint, not elsewhere classified (08/06/20) Cervicalgia (08/06/20) Visit Care Team Role Provider Type Ulises Loyd MD Attending Provider Physician Family Provider Primary Care Provider Referring Provider Specialty: Internal Medicine Address: [address] [place] [address], [address], [facility] Email: [email or web address] Plan Of Care PT-OP-T Assessment and Plan Start: 08/06/20 14:30 Freq: Status: Active Protocol: Document 08/06/20 13:45 DCW (Rec: 08/06/20 15:08 DCW [id number]) Physical Therapy Assessment Rehab Potential Rehabilitation Potential Good Evaluation Complexity Number of Personal Factors/Comorbidities 1-2 Number of Body Systems Impaired 1-2 Clinical Presentation at Evaluation Stable Impairments Impairments Functional Activities, Functional Mobility,Pain,ROM, Soft Tissue Mobility,Tone Goals Three Impairment Significant restriction in cervical ROM Group Home Goal (LTG) Pt to present with at least 45 ? bilateral lateral flexion and 70? bilateral cervical rotation to ensure she can properly turn head to look at traffic while driving. LTG Duration 10/06/20 Two Impairment Pt exhibits a 10? right cervical rotation and 5? left SB at rest Group Home Goal (LTG) Pt to sit in a relaxed position with her head aligned in neutral 100% of the time LTG Duration 10/06/20 One Impairment Pt does not have an appropriate home exercise program Short Term Goal (STG) Pt to be independent and compliant with an appropriate HEP STG Duration 09/05/20 Assessment Summary Assessment Pt presents with significant tone and stiffness throughout her cervical spine. Hypertonia restricts cervical ROM, and her tight left SCM is creating a right cervical rotation/ left lateral flexion of her head when at rest. Difficult to get good results with cervical special testing due to severe tone and soreness limiting positioning. Pt should benefit from skilled therapy focusing on flexibility, STM, decreasing muscle tone, and pain control. Physical Therapy Plan Frequency and Duration Frequency of Treatment 2x/Week Duration of Treatment Two months Plan of Care Start Date 08/06/20 Plan of Care End Date 10/06/20 Therapeutic Interventions Therapeutic Interventions Home Exercise Program,Joint Mobilizations,Manual Therapy, Patient/Caregiver Education, Self-Care/Home Management,Soft Tissue Mobilization,Taping, Therapeutic Activities, Therapeutic Exercises Modalities Cold Pack/Ice Massage,Electric Stimulation,Hot Packs, Ultrasound Next Visit Focus/Plan Next Note Type Treatment Note Next Visit Plan Cervical STM, Flexibility exercises Plan of Care Dates Plan of Care Start Date 08/06/20 Plan of Care End Date 10/06/20 Electronically Signed by: Shay Henao, PT 08/06/20 [id number] Please Sign and Return: I have reviewed this Plan of Care and certify that the skilled therapy services above are required to meet the patient?s needs. Physician Signature Date Printed Name and Credentials Clinical Instructor Signature Printed Name and Credentials
--- NOTE | 2020-08-06 15:10 | PT.OPPOC ---
Physical, Occupational & Speech Therapy At [facility] Current Diagnoses Stiffness of other specified joint, not elsewhere classified (08/06/20) Cervicalgia (08/06/20) Visit Care Team Role Provider Type Ulises Loyd MD Attending Provider Physician Family Provider Primary Care Provider Referring Provider Specialty: Internal Medicine Address: [address] [place] [address], [address], [facility] Email: [email or web address] Plan Of Care PT-OP-T Assessment and Plan Start: 08/06/20 14:30 Freq: Status: Active Protocol: Document 08/06/20 13:45 DCW (Rec: 08/06/20 15:08 DCW [id number]) Physical Therapy Assessment Rehab Potential Rehabilitation Potential Good Evaluation Complexity Number of Personal Factors/Comorbidities 1-2 Number of Body Systems Impaired 1-2 Clinical Presentation at Evaluation Stable Impairments Impairments Functional Activities, Functional Mobility,Pain,ROM, Soft Tissue Mobility,Tone Goals Three Impairment Significant restriction in cervical ROM Skilled Nursing Goal (LTG) Pt to present with at least 45 ? bilateral lateral flexion and 70? bilateral cervical rotation to ensure she can properly turn head to look at traffic while driving. LTG Duration 10/06/20 Two Impairment Pt exhibits a 10? right cervical rotation and 5? left SB at rest Skilled Nursing Goal (LTG) Pt to sit in a relaxed position with her head aligned in neutral 100% of the time LTG Duration 10/06/20 One Impairment Pt does not have an appropriate home exercise program Short Term Goal (STG) Pt to be independent and compliant with an appropriate HEP STG Duration 09/05/20 Assessment Summary Assessment Pt presents with significant tone and stiffness throughout her cervical spine. Hypertonia restricts cervical ROM, and her tight left SCM is creating a right cervical rotation/ left lateral flexion of her head when at rest. Difficult to get good results with cervical special testing due to severe tone and soreness limiting positioning. Pt should benefit from skilled therapy focusing on flexibility, STM, decreasing muscle tone, and pain control. Physical Therapy Plan Frequency and Duration Frequency of Treatment 2x/Week Duration of Treatment Two months Plan of Care Start Date 08/06/20 Plan of Care End Date 10/06/20 Therapeutic Interventions Therapeutic Interventions Home Exercise Program,Joint Mobilizations,Manual Therapy, Patient/Caregiver Education, Self-Care/Home Management,Soft Tissue Mobilization,Taping, Therapeutic Activities, Therapeutic Exercises Modalities Cold Pack/Ice Massage,Electric Stimulation,Hot Packs, Ultrasound Next Visit Focus/Plan Next Note Type Treatment Note Next Visit Plan Cervical STM, Flexibility exercises Plan of Care Dates Plan of Care Start Date 08/06/20 Plan of Care End Date 10/06/20 Electronically Signed by: Shay Henao, PT 08/06/20 [id number] Please Sign and Return: I have reviewed this Plan of Care and certify that the skilled therapy services above are required to meet the patient?s needs. Physician Signature Date Printed Name and Credentials Clinical Instructor Signature Printed Name and Credentials
--- NOTE | 2020-08-10 14:35 | PT.OTN ---
Current Diagnoses Stiffness of other specified joint, not elsewhere classified (08/10/20) Cervicalgia (08/10/20) Physical Therapy Treatment Note PT-OP-A Visit Information Start: 08/06/20 14:30 Freq: Status: Active Protocol: Document 08/10/20 13:45 DCW (Rec: 08/10/20 14:35 DCW [id number]) Out-Patient Physical Therapy Visit Information Visit Information Visit Type Treatment Note Visit Start Time 13:45 Visit Stop Time 14:30 Total Visit Minutes 45 Visit Number 2 Number of LEATHER STRIPPING MACHINE OPERATOR Visits 0 Evaluation Information Evaluation Date 08/06/20 PT-OP-B Current Condition Start: 08/06/20 14:30 Freq: Status: Active Protocol: Document 08/06/20 13:45 DCW (Rec: 08/06/20 14:56 DCW [id number]) Current Condition History of Current Condition Onset Date 2 years Current Complaints Neck pain/stiffness History of Current Condition Pt is a 75 year old female presenting with a 1.5-2 year history of neck pain and stiffness. Pt notes it has been worsening over the last few years, and finally got to a point where she felt she had to bring it up to Dr Loyd. Pt reports any heavier-duty activity, such as gardening, cooking, and using her weed- kiran, as well as sitting for too long in her recliner, all cause neck pain. Pt notes some occasional left arm pain. Treatment Goals Patient/Caregiver Goals I want to reduce all this tension in my neck. I feel like it is just too much. PT-OP-C Subjective Start: 08/06/20 14:30 Freq: Status: Active Protocol: Document 08/10/20 13:45 DCW (Rec: 08/10/20 14:35 DCW [id number]) OP-PT Subjective Patient Comments Patient Comments I just thought I should mention, I am having some dental problems causing pain up here (left jaw), so maybe that could be causing some of this tightness. PT-OP-F Manual Assessment Start: 08/06/20 14:30 Freq: Status: Active Protocol: Document 08/06/20 13:45 DCW (Rec: 08/06/20 14:56 DCW [id number]) Manual Assessments Soft Tissue Assessment Soft Tissue Mobility Assessment Severe hypertonia along L SCM, scalenes, upper trap, levator scap Moderate hypertonia along R SCM, scalenes, upper trap, levator scap Joint Mobility Assessment Joint Mobility Assessment Soft tissue tightness results in limited cervical ROM. At rest, pt displays a 10? R cervical rotation and a 5? L lateral flexion PT-OP-J Posture/Palpation/Skin Start: 08/06/20 14:30 Freq: Status: Active Protocol: Document 08/06/20 13:45 DCW (Rec: 08/06/20 14:56 DCW [id number]) Posture Evaluation Position Sitting Evaluation View Anterior Head/C-Spine Posture Rotated Right,Side Bent Left PT-OP-K Range of Motion Start: 08/06/20 14:30 Freq: Status: Active Protocol: Document 08/06/20 13:45 DCW (Rec: 08/06/20 14:56 DCW [id number]) Cervical Spine Range of Motion Cervical Spine Active Degrees Testing Position Sitting Flexion 30 Extension 20 Rotation Left 32 Rotation Right 68 Lateral Flexion Left 15 Lateral Flexion Right 30 ROM Limitations Soft Tissue Tightness, Contracture,Muscle Tone,Pain PT-OP-L Special Tests Start: 08/06/20 14:30 Freq: Status: Active Protocol: Document 08/06/20 13:45 DCW (Rec: 08/06/20 14:56 DCW [id number]) Special Tests Cervical Spine Special Tests Spurling's Test Test Results Negative Traction Test Results Pain relief Passive Neck Flexion Test Results Negative Foraminal Compression Test Results Positive PT-OP-Q Treatments Start: 08/06/20 14:30 Freq: Status: Active Protocol: Document 08/10/20 13:45 DCW (Rec: 08/10/20 14:35 DCW [id number]) Manual Therapy Treatment Soft Tissue Mobilization 4 Body Location SCM Mobilization Type Strumming,Sustained Pressure, Trigger Point Release Intensity/Depth Moderate Body Position Hooklying 3 Body Location Suboccipitals Mobilization Type Strumming,Sustained Pressure Intensity/Depth Moderate Body Position Hooklying 2 Body Location Upper Trap Mobilization Type Strumming,Sustained Pressure Intensity/Depth Moderate Body Position Hooklying 1 Body Location Cervical Paraspinals Mobilization Type Sustained Pressure,Trigger Point Release Intensity/Depth Moderate Body Position Hooklying PT-OP-T Assessment and Plan Start: 08/06/20 14:30 Freq: Status: Active Protocol: Document 08/10/20 13:45 DCW (Rec: 08/10/20 14:35 DCW [id number]) Physical Therapy Assessment Impairments Impairments Functional Activities, Functional Mobility,Pain,ROM, Soft Tissue Mobility,Tone Goals Three Impairment Significant restriction in cervical ROM Nursing Home Goal (LTG) Pt to present with at least 45 ? bilateral lateral flexion and 70? bilateral cervical rotation to ensure she can properly turn head to look at traffic while driving. LTG Duration 10/06/20 Two Impairment Pt exhibits a 10? right cervical rotation and 5? left SB at rest Taxi Cab Driver Goal (LTG) Pt to sit in a relaxed position with her head aligned in neutral 100% of the time LTG Duration 10/06/20 One Impairment Pt does not have an appropriate home exercise program Short Term Goal (STG) Pt to be independent and compliant with an appropriate HEP STG Duration 09/05/20 Assessment Summary Assessment Pt tolerated STM very well today, focused mainly on manual therapy to reduce tone and improve cervical mobility. Physical Therapy Plan Frequency and Duration Frequency of Treatment 2x/Week Duration of Treatment Two months Plan of Care Start Date 08/06/20 Plan of Care End Date 10/06/20 Therapeutic Interventions Therapeutic Interventions Home Exercise Program,Joint Mobilizations,Manual Therapy, Patient/Caregiver Education, Self-Care/Home Management,Soft Tissue Mobilization,Taping, Therapeutic Activities, Therapeutic Exercises Modalities Cold Pack/Ice Massage,Electric Stimulation,Hot Packs, Ultrasound Next Visit Focus/Plan Next Note Type Treatment Note Next Visit Plan Cervical STM, Flexibility exercises
--- NOTE | 2020-08-14 11:57 | PT.OTN ---
Current Diagnoses Stiffness of other specified joint, not elsewhere classified (08/14/20) Cervicalgia (08/14/20) Physical Therapy Treatment Note PT-OP-A Visit Information Start: 08/06/20 14:30 Freq: Status: Active Protocol: Document 08/14/20 11:19 DCW (Rec: 08/14/20 11:57 DCW [id number]) Out-Patient Physical Therapy Visit Information Visit Information Visit Type Treatment Note Visit Start Time 11:19 Visit Stop Time 12:00 Total Visit Minutes 41 Visit Number 3 Number of TERMINAL OPERATIONS MANAGER Visits 0 Evaluation Information Evaluation Date 08/06/20 PT-OP-B Current Condition Start: 08/06/20 14:30 Freq: Status: Active Protocol: Document 08/06/20 13:45 DCW (Rec: 08/06/20 14:56 DCW [id number]) Current Condition History of Current Condition Onset Date 2 years Current Complaints Neck pain/stiffness History of Current Condition Pt is a 75 year old female presenting with a 1.5-2 year history of neck pain and stiffness. Pt notes it has been worsening over the last few years, and finally got to a point where she felt she had to bring it up to Dr Loyd. Pt reports any heavier-duty activity, such as gardening, cooking, and using her weed- kiran, as well as sitting for too long in her recliner, all cause neck pain. Pt notes some occasional left arm pain. Treatment Goals Patient/Caregiver Goals I want to reduce all this tension in my neck. I feel like it is just too much. PT-OP-C Subjective Start: 08/06/20 14:30 Freq: Status: Active Protocol: Document 08/14/20 11:19 DCW (Rec: 08/14/20 11:57 DCW [id number]) OP-PT Subjective Patient Comments Patient Comments It's fair today, notes she did have a couple of stressful evenings in a row, when I get like that, everything just tightens up. PT-OP-F Manual Assessment Start: 08/06/20 14:30 Freq: Status: Active Protocol: Document 08/06/20 13:45 DCW (Rec: 08/06/20 14:56 DCW [id number]) Manual Assessments Soft Tissue Assessment Soft Tissue Mobility Assessment Severe hypertonia along L SCM, scalenes, upper trap, levator scap Moderate hypertonia along R SCM, scalenes, upper trap, levator scap Joint Mobility Assessment Joint Mobility Assessment Soft tissue tightness results in limited cervical ROM. At rest, pt displays a 10? R cervical rotation and a 5? L lateral flexion PT-OP-J Posture/Palpation/Skin Start: 08/06/20 14:30 Freq: Status: Active Protocol: Document 08/06/20 13:45 DCW (Rec: 08/06/20 14:56 DCW [id number]) Posture Evaluation Position Sitting Evaluation View Anterior Head/C-Spine Posture Rotated Right,Side Bent Left PT-OP-K Range of Motion Start: 08/06/20 14:30 Freq: Status: Active Protocol: Document 08/06/20 13:45 DCW (Rec: 08/06/20 14:56 DCW [id number]) Cervical Spine Range of Motion Cervical Spine Active Degrees Testing Position Sitting Flexion 30 Extension 20 Rotation Left 32 Rotation Right 68 Lateral Flexion Left 15 Lateral Flexion Right 30 ROM Limitations Soft Tissue Tightness, Contracture,Muscle Tone,Pain PT-OP-L Special Tests Start: 08/06/20 14:30 Freq: Status: Active Protocol: Document 08/06/20 13:45 DCW (Rec: 08/06/20 14:56 DCW [id number]) Special Tests Cervical Spine Special Tests Spurling's Test Test Results Negative Traction Test Results Pain relief Passive Neck Flexion Test Results Negative Foraminal Compression Test Results Positive PT-OP-Q Treatments Start: 08/06/20 14:30 Freq: Status: Active Protocol: Document 08/14/20 11:19 DCW (Rec: 08/14/20 11:57 DCW [id number]) Therapeutic Exercises Sitting Exercises 5 Sitting Exercise Name Resisted cervical extension Resistance Lv 2 Equipment Used T-band 4 Sitting Exercise Name Resisted Lateral flexion Side bilateral Resistance Lv 2 Equipment Used T-band 3 Sitting Exercise Name Resisted cervical rotation Side bilateral Resistance Lv 2 Equipment Used T-band Manual Therapy Treatment Soft Tissue Mobilization 4 Body Location SCM Mobilization Type Strumming,Sustained Pressure, Trigger Point Release Intensity/Depth Moderate Body Position Hooklying 3 Body Location Suboccipitals Mobilization Type Strumming,Sustained Pressure Intensity/Depth Moderate Body Position Hooklying 2 Body Location Upper Trap Mobilization Type Strumming,Sustained Pressure Intensity/Depth Moderate Body Position Hooklying 1 Body Location Cervical Paraspinals Mobilization Type Sustained Pressure,Trigger Point Release Intensity/Depth Moderate Body Position Hooklying PT-OP-T Assessment and Plan Start: 08/06/20 14:30 Freq: Status: Active Protocol: Document 08/14/20 11:19 DCW (Rec: 08/14/20 11:57 DCW [id number]) Physical Therapy Assessment Impairments Impairments Functional Activities, Functional Mobility,Pain,ROM, Soft Tissue Mobility,Tone Goals Three Impairment Significant restriction in cervical ROM Market Stall Vendor Goal (LTG) Pt to present with at least 45 ? bilateral lateral flexion and 70? bilateral cervical rotation to ensure she can properly turn head to look at traffic while driving. LTG Duration 10/06/20 Two Impairment Pt exhibits a 10? right cervical rotation and 5? left SB at rest Correction Goal (LTG) Pt to sit in a relaxed position with her head aligned in neutral 100% of the time LTG Duration 10/06/20 One Impairment Pt does not have an appropriate home exercise program Short Term Goal (STG) Pt to be independent and compliant with an appropriate HEP STG Duration 09/05/20 Assessment Summary Assessment Pt happy with plan to add cervical strengthening to HEP, pt motivated to perform independently outside of therapy. Tolerating treatment well. Physical Therapy Plan Frequency and Duration Frequency of Treatment 2x/Week Duration of Treatment Two months Plan of Care Start Date 08/06/20 Plan of Care End Date 10/06/20 Therapeutic Interventions Therapeutic Interventions Home Exercise Program,Joint Mobilizations,Manual Therapy, Patient/Caregiver Education, Self-Care/Home Management,Soft Tissue Mobilization,Taping, Therapeutic Activities, Therapeutic Exercises Modalities Cold Pack/Ice Massage,Electric Stimulation,Hot Packs, Ultrasound Next Visit Focus/Plan Next Note Type Treatment Note Next Visit Plan Cervical STM, Flexibility exercises
--- NOTE | 2020-08-18 15:14 | PT.OTN ---
Current Diagnoses Stiffness of other specified joint, not elsewhere classified (08/18/20) Cervicalgia (08/18/20) Physical Therapy Treatment Note PT-OP-A Visit Information Start: 08/06/20 14:30 Freq: Status: Active Protocol: Document 08/18/20 14:31 DCW (Rec: 08/18/20 15:14 DCW [id number]) Out-Patient Physical Therapy Visit Information Visit Information Visit Type Treatment Note Visit Start Time 14:31 Visit Stop Time 15:15 Total Visit Minutes 44 Visit Number 4 Number of SNACK BAR COOK Visits 0 Evaluation Information Evaluation Date 08/06/20 PT-OP-B Current Condition Start: 08/06/20 14:30 Freq: Status: Active Protocol: Document 08/06/20 13:45 DCW (Rec: 08/06/20 14:56 DCW [id number]) Current Condition History of Current Condition Onset Date 2 years Current Complaints Neck pain/stiffness History of Current Condition Pt is a 75 year old female presenting with a 1.5-2 year history of neck pain and stiffness. Pt notes it has been worsening over the last few years, and finally got to a point where she felt she had to bring it up to Dr Loyd. Pt reports any heavier-duty activity, such as gardening, cooking, and using her weed- kiran, as well as sitting for too long in her recliner, all cause neck pain. Pt notes some occasional left arm pain. Treatment Goals Patient/Caregiver Goals I want to reduce all this tension in my neck. I feel like it is just too much. PT-OP-C Subjective Start: 08/06/20 14:30 Freq: Status: Active Protocol: Document 08/18/20 14:31 DCW (Rec: 08/18/20 15:14 DCW [id number]) OP-PT Subjective Patient Comments Patient Comments Pt notes she is tight today for some reason. PT-OP-F Manual Assessment Start: 08/06/20 14:30 Freq: Status: Active Protocol: Document 08/06/20 13:45 DCW (Rec: 08/06/20 14:56 DCW [id number]) Manual Assessments Soft Tissue Assessment Soft Tissue Mobility Assessment Severe hypertonia along L SCM, scalenes, upper trap, levator scap Moderate hypertonia along R SCM, scalenes, upper trap, levator scap Joint Mobility Assessment Joint Mobility Assessment Soft tissue tightness results in limited cervical ROM. At rest, pt displays a 10? R cervical rotation and a 5? L lateral flexion PT-OP-J Posture/Palpation/Skin Start: 08/06/20 14:30 Freq: Status: Active Protocol: Document 08/06/20 13:45 DCW (Rec: 08/06/20 14:56 DCW [id number]) Posture Evaluation Position Sitting Evaluation View Anterior Head/C-Spine Posture Rotated Right,Side Bent Left PT-OP-K Range of Motion Start: 08/06/20 14:30 Freq: Status: Active Protocol: Document 08/06/20 13:45 DCW (Rec: 08/06/20 14:56 DCW [id number]) Cervical Spine Range of Motion Cervical Spine Active Degrees Testing Position Sitting Flexion 30 Extension 20 Rotation Left 32 Rotation Right 68 Lateral Flexion Left 15 Lateral Flexion Right 30 ROM Limitations Soft Tissue Tightness, Contracture,Muscle Tone,Pain PT-OP-L Special Tests Start: 08/06/20 14:30 Freq: Status: Active Protocol: Document 08/06/20 13:45 DCW (Rec: 08/06/20 14:56 DCW [id number]) Special Tests Cervical Spine Special Tests Spurling's Test Test Results Negative Traction Test Results Pain relief Passive Neck Flexion Test Results Negative Foraminal Compression Test Results Positive PT-OP-Q Treatments Start: 08/06/20 14:30 Freq: Status: Active Protocol: Document 08/18/20 14:31 DCW (Rec: 08/18/20 15:14 DCW [id number]) Manual Therapy Treatment Soft Tissue Mobilization 4 Body Location SCM Mobilization Type Strumming,Sustained Pressure, Trigger Point Release Intensity/Depth Moderate Body Position Hooklying 3 Body Location Suboccipitals Mobilization Type Strumming,Sustained Pressure Intensity/Depth Moderate Body Position Hooklying 2 Body Location Upper Trap Mobilization Type Strumming,Sustained Pressure Intensity/Depth Moderate Body Position Hooklying 1 Body Location Cervical Paraspinals Mobilization Type Sustained Pressure,Trigger Point Release Intensity/Depth Moderate Body Position Hooklying PT-OP-T Assessment and Plan Start: 08/06/20 14:30 Freq: Status: Active Protocol: Document 08/18/20 14:31 DCW (Rec: 08/18/20 15:14 DCW [id number]) Physical Therapy Assessment Impairments Impairments Functional Activities, Functional Mobility,Pain,ROM, Soft Tissue Mobility,Tone Goals Three Impairment Significant restriction in cervical ROM Bailing Machine Operator Goal (LTG) Pt to present with at least 45 ? bilateral lateral flexion and 70? bilateral cervical rotation to ensure she can properly turn head to look at traffic while driving. LTG Duration 10/06/20 Two Impairment Pt exhibits a 10? right cervical rotation and 5? left SB at rest [facility] Goal (LTG) Pt to sit in a relaxed position with her head aligned in neutral 100% of the time LTG Duration 10/06/20 One Impairment Pt does not have an appropriate home exercise program Short Term Goal (STG) Pt to be independent and compliant with an appropriate HEP STG Duration 09/05/20 Assessment Summary Assessment Pt continues to tolerate well, still having some problems with stiffness and tone, but overall is showing improvement . Physical Therapy Plan Frequency and Duration Frequency of Treatment 2x/Week Duration of Treatment Two months Plan of Care Start Date 08/06/20 Plan of Care End Date 10/06/20 Therapeutic Interventions Therapeutic Interventions Home Exercise Program,Joint Mobilizations,Manual Therapy, Patient/Caregiver Education, Self-Care/Home Management,Soft Tissue Mobilization,Taping, Therapeutic Activities, Therapeutic Exercises Modalities Cold Pack/Ice Massage,Electric Stimulation,Hot Packs, Ultrasound Next Visit Focus/Plan Next Note Type Treatment Note Next Visit Plan Cervical STM, Flexibility exercises
--- NOTE | 2020-08-20 11:56 | PT.OTN ---
Current Diagnoses Stiffness of other specified joint, not elsewhere classified (08/20/20) Cervicalgia (08/20/20) Physical Therapy Treatment Note PT-OP-A Visit Information Start: 08/06/20 14:30 Freq: Status: Active Protocol: Document 08/20/20 11:15 DCW (Rec: 08/20/20 11:56 DCW [id number]) Out-Patient Physical Therapy Visit Information Visit Information Visit Type Treatment Note Visit Start Time 11:15 Visit Stop Time 12:00 Total Visit Minutes 45 Visit Number 4 Number of DIRECTOR SYSTEMS Visits 0 Evaluation Information Evaluation Date 08/06/20 PT-OP-B Current Condition Start: 08/06/20 14:30 Freq: Status: Active Protocol: Document 08/06/20 13:45 DCW (Rec: 08/06/20 14:56 DCW [id number]) Current Condition History of Current Condition Onset Date 2 years Current Complaints Neck pain/stiffness History of Current Condition Pt is a 75 year old female presenting with a 1.5-2 year history of neck pain and stiffness. Pt notes it has been worsening over the last few years, and finally got to a point where she felt she had to bring it up to Dr Loyd. Pt reports any heavier-duty activity, such as gardening, cooking, and using her weed- kiran, as well as sitting for too long in her recliner, all cause neck pain. Pt notes some occasional left arm pain. Treatment Goals Patient/Caregiver Goals I want to reduce all this tension in my neck. I feel like it is just too much. PT-OP-C Subjective Start: 08/06/20 14:30 Freq: Status: Active Protocol: Document 08/20/20 11:15 DCW (Rec: 08/20/20 11:56 DCW [id number]) OP-PT Subjective Patient Comments Patient Comments All I did was lift a bag of potting soil yesterday, and I feel worse. It's kind of discouraging. PT-OP-F Manual Assessment Start: 08/06/20 14:30 Freq: Status: Active Protocol: Document 08/06/20 13:45 DCW (Rec: 08/06/20 14:56 DCW [id number]) Manual Assessments Soft Tissue Assessment Soft Tissue Mobility Assessment Severe hypertonia along L SCM, scalenes, upper trap, levator scap Moderate hypertonia along R SCM, scalenes, upper trap, levator scap Joint Mobility Assessment Joint Mobility Assessment Soft tissue tightness results in limited cervical ROM. At rest, pt displays a 10? R cervical rotation and a 5? L lateral flexion PT-OP-J Posture/Palpation/Skin Start: 08/06/20 14:30 Freq: Status: Active Protocol: Document 08/06/20 13:45 DCW (Rec: 08/06/20 14:56 DCW [id number]) Posture Evaluation Position Sitting Evaluation View Anterior Head/C-Spine Posture Rotated Right,Side Bent Left PT-OP-K Range of Motion Start: 08/06/20 14:30 Freq: Status: Active Protocol: Document 08/06/20 13:45 DCW (Rec: 08/06/20 14:56 DCW [id number]) Cervical Spine Range of Motion Cervical Spine Active Degrees Testing Position Sitting Flexion 30 Extension 20 Rotation Left 32 Rotation Right 68 Lateral Flexion Left 15 Lateral Flexion Right 30 ROM Limitations Soft Tissue Tightness, Contracture,Muscle Tone,Pain PT-OP-L Special Tests Start: 08/06/20 14:30 Freq: Status: Active Protocol: Document 08/06/20 13:45 DCW (Rec: 08/06/20 14:56 DCW [id number]) Special Tests Cervical Spine Special Tests Spurling's Test Test Results Negative Traction Test Results Pain relief Passive Neck Flexion Test Results Negative Foraminal Compression Test Results Positive PT-OP-Q Treatments Start: 08/06/20 14:30 Freq: Status: Active Protocol: Document 08/20/20 11:15 DCW (Rec: 08/20/20 11:56 DCW [id number]) Therapeutic Exercises Standing Exercises 3 Standing Exercise Name Shoulder Extension Side bilateral Resistance Lv 2 Equipment Used T-band 2 Standing Exercise Name Rows Side bilateral Resistance Lv 2 Equipment Used T-band 1 Standing Exercise Name Shoulder IR/ER Side bilateral Resistance Lv 2 Equipment Used T-band Manual Therapy Treatment Soft Tissue Mobilization 4 Body Location SCM Mobilization Type Strumming,Sustained Pressure, Trigger Point Release Intensity/Depth Moderate Body Position Hooklying 3 Body Location Suboccipitals Mobilization Type Strumming,Sustained Pressure Intensity/Depth Moderate Body Position Hooklying 2 Body Location Upper Trap Mobilization Type Strumming,Sustained Pressure Intensity/Depth Moderate Body Position Hooklying 1 Body Location Cervical Paraspinals Mobilization Type Sustained Pressure,Trigger Point Release Intensity/Depth Moderate Body Position Hooklying PT-OP-T Assessment and Plan Start: 08/06/20 14:30 Freq: Status: Active Protocol: Document 08/20/20 11:15 DCW (Rec: 08/20/20 11:56 DCW [id number]) Physical Therapy Assessment Impairments Impairments Functional Activities, Functional Mobility,Pain,ROM, Soft Tissue Mobility,Tone Goals Three Impairment Significant restriction in cervical ROM Commercial Baker Helper Goal (LTG) Pt to present with at least 45 ? bilateral lateral flexion and 70? bilateral cervical rotation to ensure she can properly turn head to look at traffic while driving. LTG Duration 10/06/20 Two Impairment Pt exhibits a 10? right cervical rotation and 5? left SB at rest Commercial Baker Helper Goal (LTG) Pt to sit in a relaxed position with her head aligned in neutral 100% of the time LTG Duration 10/06/20 One Impairment Pt does not have an appropriate home exercise program Short Term Goal (STG) Pt to be independent and compliant with an appropriate HEP STG Duration 09/05/20 Assessment Summary Assessment Pt agreeable to general shoulder strengthening in order to help prevent overuse/ compensatory use of upper trap and paraspinals when lifting and carrying items. Physical Therapy Plan Frequency and Duration Frequency of Treatment 2x/Week Duration of Treatment Two months Plan of Care Start Date 08/06/20 Plan of Care End Date 10/06/20 Therapeutic Interventions Therapeutic Interventions Home Exercise Program,Joint Mobilizations,Manual Therapy, Patient/Caregiver Education, Self-Care/Home Management,Soft Tissue Mobilization,Taping, Therapeutic Activities, Therapeutic Exercises Modalities Cold Pack/Ice Massage,Electric Stimulation,Hot Packs, Ultrasound Next Visit Focus/Plan Next Note Type Treatment Note Next Visit Plan Cervical STM, Flexibility exercises
--- NOTE | 2020-08-25 13:45 | PT.OTN ---
Current Diagnoses Stiffness of other specified joint, not elsewhere classified (08/25/20) Cervicalgia (08/25/20) Physical Therapy Treatment Note PT-OP-A Visit Information Start: 08/06/20 14:30 Freq: Status: Active Protocol: Document 08/25/20 13:04 SP (Rec: 08/25/20 16:33 SP [id number]) Out-Patient Physical Therapy Visit Information Visit Information Visit Type Treatment Note Visit Start Time 13:04 Visit Stop Time 13:45 Total Visit Minutes 41 Visit Number 5 Number of MELT HOUSE SUPERVISOR Visits 1 Evaluation Information Evaluation Date 08/06/20 PT-OP-B Current Condition Start: 08/06/20 14:30 Freq: Status: Active Protocol: Document 08/06/20 13:45 DCW (Rec: 08/06/20 14:56 DCW [id number]) Current Condition History of Current Condition Onset Date 2 years Current Complaints Neck pain/stiffness History of Current Condition Pt is a 75 year old female presenting with a 1.5-2 year history of neck pain and stiffness. Pt notes it has been worsening over the last few years, and finally got to a point where she felt she had to bring it up to Dr Loyd. Pt reports any heavier-duty activity, such as gardening, cooking, and using her weed- kiran, as well as sitting for too long in her recliner, all cause neck pain. Pt notes some occasional left arm pain. Treatment Goals Patient/Caregiver Goals I want to reduce all this tension in my neck. I feel like it is just too much. PT-OP-C Subjective Start: 08/06/20 14:30 Freq: Status: Active Protocol: Document 08/25/20 13:04 SP (Rec: 08/25/20 16:33 SP [id number]) OP-PT Subjective Patient Comments Patient Comments Pt stated her neck is little stiff, sore after squatting over to tie bamboo together to making a trellis. Pt states is compliant with HEP. Pt stated did like the use of E stim last tx and wants to know how to get for home. PT-OP-F Manual Assessment Start: 08/06/20 14:30 Freq: Status: Active Protocol: Document 08/06/20 13:45 DCW (Rec: 08/06/20 14:56 DCW [id number]) Manual Assessments Soft Tissue Assessment Soft Tissue Mobility Assessment Severe hypertonia along L SCM, scalenes, upper trap, levator scap Moderate hypertonia along R SCM, scalenes, upper trap, levator scap Joint Mobility Assessment Joint Mobility Assessment Soft tissue tightness results in limited cervical ROM. At rest, pt displays a 10? R cervical rotation and a 5? L lateral flexion PT-OP-J Posture/Palpation/Skin Start: 08/06/20 14:30 Freq: Status: Active Protocol: Document 08/06/20 13:45 DCW (Rec: 08/06/20 14:56 ARW [id number]) Posture Evaluation Position Sitting Evaluation View Anterior Head/C-Spine Posture Rotated Right,Side Bent Left PT-OP-K Range of Motion Start: 08/06/20 14:30 Freq: Status: Active Protocol: Document 08/06/20 13:45 DCW (Rec: 08/06/20 14:56 [id number] Cervical Spine Range of Motion Cervical Spine Active Degrees Testing Position Sitting Flexion 30 Extension 20 Rotation Left 32 Rotation Right 68 Lateral Flexion Left 15 Lateral Flexion Right 30 ROM Limitations Soft Tissue Tightness, Contracture,Muscle Tone,Pain PT-OP-L Special Tests Start: 08/06/20 14:30 Freq: Status: Active Protocol: Document 08/06/20 13:45 DCW (Rec: 08/06/20 14:56 [id number] Special Tests Cervical Spine Special Tests Spurling's Test Test Results Negative Traction Test Results Pain relief Passive Neck Flexion Test Results Negative Foraminal Compression Test Results Positive PT-OP-Q Treatments Start: 08/06/20 14:30 Freq: Status: Active Protocol: Document 08/25/20 13:04 SP (Rec: 08/25/20 16:33 SP [id number]) Therapeutic Exercises Sidelying Exercises open book Sidelying Exercise Name head follow arm- added to HEP Side bilateral Reps/Minutes x5 R and L Comments cued scap stab depresion awarness Standing Exercises shld ext isometric w /CS rotation Standing Exercise Name added to HEP Resistance TB #2 Reps/Minutes 1x10 turns Comments occasional cue for CS alignment adn scap stab depression 3 Standing Exercise Name Shoulder Extension Side bilateral Resistance Lv 2 Equipment Used T-band Reps/Minutes 2x10 Comments cued scap stab depression 2 Standing Exercise Name Rows Side bilateral Resistance Lv 2 Equipment Used T-band Reps/Minutes 2x10 Comments cues for scap depression stab. 1 Standing Exercise Name Shoulder IR/ER Side bilateral Resistance Lv 2 Equipment Used T-band Reps/Minutes 2x10 Comments cued for 90 * elbow and scap retraction/depression stab. Manual Therapy Treatment Soft Tissue Mobilization 4 Body Location SCM Mobilization Type Strumming,Sustained Pressure, Trigger Point Release Intensity/Depth Moderate Body Position Hooklying Comments MWM head nod/turn 3 Body Location Suboccipitals, SOR Mobilization Type Strumming,Sustained Pressure Intensity/Depth Moderate Body Position Hooklying Comments MWM head nod/turn 2 Body Location Upper Trap Mobilization Type Strumming,Sustained Pressure Intensity/Depth Moderate Body Position Hooklying Comments MWM head nod/turn 1 Body Location Cervical Paraspinals Mobilization Type Sustained Pressure,Trigger Point Release Intensity/Depth Moderate Body Position Hooklying Comments MWM head nod/turn PT-OP-T Assessment and Plan Start: 08/06/20 14:30 Freq: Status: Active Protocol: Document 08/25/20 13:04 SP (Rec: 08/25/20 16:33 SP [id number]) Physical Therapy Assessment Goals Three Impairment Significant restriction in cervical ROM Sodium Methylate Operator Goal (LTG) Pt to present with at least 45 ? bilateral lateral flexion and 70? bilateral cervical rotation to ensure she can properly turn head to look at traffic while driving. LTG Duration 10/06/20 Two Impairment Pt exhibits a 10? right cervical rotation and 5? left SB at rest Senior Living Goal (LTG) Pt to sit in a relaxed position with her head aligned in neutral 100% of the time LTG Duration 10/06/20 One Impairment Pt does not have an appropriate home exercise program Short Term Goal (STG) Pt to be independent and compliant with an appropriate HEP STG Duration 09/05/20 Assessment Summary Assessment Pt decreased neck tension this tx post manual and instruction on self application, pincher knead or sustained pressure and MWM head nods/ turns to SCM and theracane sustained pressure post neck and or UT/ rhomboids MWM with good feedback results. Pt initially requested E stim but declined end tx. Idon't feel need it now. Cues for scap stab. during HEP review. Pt tolerated initiated open book to HEP with feedback it gives me a nice front shld stretch and moving my mid back better than when arrived. MELT HOUSE SUPERVISOR recommended searching portable stim like TENS, for reducation in tightness assist if feels needs for home. MELT HOUSE SUPERVISOR recoommended self apppication of theracane or tennis ball on wall for STMs that helped this tx and demonstrated self application well. Physical Therapy Plan Frequency and Duration Frequency of Treatment 2x/Week Duration of Treatment Two months Plan of Care Start Date 08/06/20 Plan of Care End Date 10/06/20 Therapeutic Interventions Therapeutic Interventions Home Exercise Program,Joint Mobilizations,Manual Therapy, Patient/Caregiver Education, Self-Care/Home Management,Soft Tissue Mobilization,Taping, Therapeutic Activities, Therapeutic Exercises Modalities Cold Pack/Ice Massage,Electric Stimulation,Hot Packs, Ultrasound Next Visit Focus/Plan Next Note Type Treatment Note Next Visit Plan Assess response to manual and instruction on self application STMs/ MWM, CS rotation scap stab for incresaed mobility. PT POC: Cervical STM, Flexibility exercises
--- NOTE | 2020-08-27 13:55 | PT.OTN ---
Current Diagnoses Stiffness of other specified joint, not elsewhere classified (08/27/20) Cervicalgia (08/27/20) Physical Therapy Treatment Note PT-OP-A Visit Information Start: 08/06/20 14:30 Freq: Status: Active Protocol: Document 08/27/20 13:06 SP (Rec: 08/27/20 15:06 SP [id number]) Out-Patient Physical Therapy Visit Information Visit Information Visit Type Treatment Note Visit Note Pt 6 min late for appt Visit Start Time 13:06 Visit Stop Time 13:55 Total Visit Minutes 49 Visit Number 6 Number of TERRAZZO TILE SETTER Visits 2 Evaluation Information Evaluation Date 08/06/20 PT-OP-B Current Condition Start: 08/06/20 14:30 Freq: Status: Active Protocol: Document 08/06/20 13:45 DCW (Rec: 08/06/20 14:56 DCW [id number]) Current Condition History of Current Condition Onset Date 2 years Current Complaints Neck pain/stiffness History of Current Condition Pt is a 75 year old female presenting with a 1.5-2 year history of neck pain and stiffness. Pt notes it has been worsening over the last few years, and finally got to a point where she felt she had to bring it up to Dr Loyd. Pt reports any heavier-duty activity, such as gardening, cooking, and using her weed- kiran, as well as sitting for too long in her recliner, all cause neck pain. Pt notes some occasional left arm pain. Treatment Goals Patient/Caregiver Goals I want to reduce all this tension in my neck. I feel like it is just too much. PT-OP-C Subjective Start: 08/06/20 14:30 Freq: Status: Active Protocol: Document 08/27/20 13:06 SP (Rec: 08/27/20 15:06 SP [id number]) OP-PT Subjective Patient Comments Patient Comments Pt states that still knot pain in R UT that just won't let go and causing headaches at night. She is finish up putting her trellis together, trying not to hunch over. PT-OP-F Manual Assessment Start: 08/06/20 14:30 Freq: Status: Active Protocol: Document 08/06/20 13:45 DCW (Rec: 08/06/20 14:56 DCW [id number]) Manual Assessments Soft Tissue Assessment Soft Tissue Mobility Assessment Severe hypertonia along L SCM, scalenes, upper trap, levator scap Moderate hypertonia along R SCM, scalenes, upper trap, levator scap Joint Mobility Assessment Joint Mobility Assessment Soft tissue tightness results in limited cervical ROM. At rest, pt displays a 10? R cervical rotation and a 5? L lateral flexion PT-OP-J Posture/Palpation/Skin Start: 08/06/20 14:30 Freq: Status: Active Protocol: Document 08/06/20 13:45 DCW (Rec: 08/06/20 14:56 DCW [id number]) Posture Evaluation Position Sitting Evaluation View Anterior Head/C-Spine Posture Rotated Right,Side Bent Left PT-OP-K Range of Motion Start: 08/06/20 14:30 Freq: Status: Active Protocol: Document 08/06/20 13:45 DCW (Rec: 08/06/20 14:56 DCW [id number]) Cervical Spine Range of Motion Cervical Spine Active Degrees Testing Position Sitting Flexion 30 Extension 20 Rotation Left 32 Rotation Right 68 Lateral Flexion Left 15 Lateral Flexion Right 30 ROM Limitations Soft Tissue Tightness, Contracture,Muscle Tone,Pain PT-OP-L Special Tests Start: 08/06/20 14:30 Freq: Status: Active Protocol: Document 08/06/20 13:45 DCW (Rec: 08/06/20 14:56 DCW [id number]) Special Tests Cervical Spine Special Tests Spurling's Test Test Results Negative Traction Test Results Pain relief Passive Neck Flexion Test Results Negative Foraminal Compression Test Results Positive PT-OP-Q Treatments Start: 08/06/20 14:30 Freq: Status: Active Protocol: Document 08/27/20 13:06 SP (Rec: 08/27/20 15:06 SP [id number]) Therapeutic Exercises Sidelying Exercises open book Sidelying Exercise Name head follow arm- added to HEP Side bilateral Reps/Minutes x10 R and L Comments cued scap stab depresion awarness Sitting Exercises Self-STM Sitting Exercise Name STM to upper trap-discussed but not performed. Equipment Used racquetball at wall and theracane- performs at home Standing Exercises wall posture Standing Exercise Name stationary then head turns with TS ext and but on wall awareness Reps/Minutes 4 min shld ext isometric w /CS rotation Standing Exercise Name added to HEP Resistance TB #2 Reps/Minutes 1x10 head turns Comments occasional cue for CS alignment adn scap stab depression 3 Standing Exercise Name Shoulder Extension Side bilateral Resistance Lv 2 Equipment Used T-band Reps/Minutes 2x10 Comments cued scap stab depression 2 Standing Exercise Name Rows Side bilateral Resistance Lv 2 Equipment Used T-band Reps/Minutes 2x10 Comments cues for scap depression stab. 1 Standing Exercise Name Shoulder IR/ER Side bilateral Resistance Lv 2 Equipment Used T-band Reps/Minutes 2x10 Comments cued for 90 * elbow and scap retraction/depression stab. Manual Therapy Treatment Soft Tissue Mobilization scapular PNF Body Location R retraction/ depression Intensity/Depth II Body Position side Comments good feedback stabilization. 4 Body Location SCM Mobilization Type Strumming,Sustained Pressure, Trigger Point Release Intensity/Depth Moderate Body Position Hooklying Comments MWM head nod/turn 3 Body Location Suboccipitals, SOR Mobilization Type Strumming,Sustained Pressure Intensity/Depth Moderate Body Position Hooklying Comments MWM head nod/turn 2 Body Location Upper Trap Mobilization Type Strumming,Sustained Pressure Intensity/Depth Moderate Body Position Hooklying Comments MWM head nod/turn 1 Body Location Cervical Paraspinals Mobilization Type Sustained Pressure,Trigger Point Release Intensity/Depth Moderate Body Position Hooklying Comments MWM head nod/turn PT-OP-R Modalities Start: 08/27/20 14:56 Freq: Status: Active Protocol: Document 08/27/20 13:06 SP (Rec: 08/27/20 15:07 SP [id number]) Electric Stimulation Electric Stimulation Interferential Current (IFC) Body Location R UT Duration (Minutes) 10 Intensity 21 Patient Position Sitting Combined With Heat/Cold Hot Pack Comments good feedback results, almost no pain, tightness. PT-OP-T Assessment and Plan Start: 08/06/20 14:30 Freq: Status: Active Protocol: Document 08/27/20 13:06 SP (Rec: 08/27/20 15:06 SP [id number]) Physical Therapy Assessment Goals Three Impairment Significant restriction in cervical ROM Residential Goal (LTG) Pt to present with at least 45 ? bilateral lateral flexion and 70? bilateral cervical rotation to ensure she can properly turn head to look at traffic while driving. LTG Duration 10/06/20 Two Impairment Pt exhibits a 10? right cervical rotation and 5? left SB at rest Residential Goal (LTG) Pt to sit in a relaxed position with her head aligned in neutral 100% of the time LTG Duration 10/06/20 One Impairment Pt does not have an appropriate home exercise program Short Term Goal (STG) Pt to be independent and compliant with an appropriate HEP STG Duration 09/05/20 Assessment Summary Assessment Tx focused on manual to neck and discussed self application at home with verbalized doing and helps. Reviewed scap stab HEP and initiated carryover to wall posture and head turns to with suprise awareness of how much UT recruitment doing in free standing. Provided wall psoture and STMs ball wall for reminders. Physical Therapy Plan Frequency and Duration Frequency of Treatment 2x/Week Duration of Treatment Two months Plan of Care Start Date 08/06/20 Plan of Care End Date 10/06/20 Therapeutic Interventions Therapeutic Interventions Home Exercise Program,Joint Mobilizations,Manual Therapy, Patient/Caregiver Education, Self-Care/Home Management,Soft Tissue Mobilization,Taping, Therapeutic Activities, Therapeutic Exercises Modalities Cold Pack/Ice Massage,Electric Stimulation,Hot Packs, Ultrasound Next Visit Focus/Plan Next Note Type Treatment Note Next Visit Plan Assess response to manual and instruction on self application STMs/ MWM, CS rotation scap stab for incresaed mobility and wall psoture. PT POC: Cervical STM, Flexibility exercises
--- NOTE | 2020-09-01 14:33 | PT.OTN ---
Current Diagnoses Stiffness of other specified joint, not elsewhere classified (09/01/20) Cervicalgia (09/01/20) Physical Therapy Treatment Note PT-OP-A Visit Information Start: 08/06/20 14:30 Freq: Status: Active Protocol: Document 09/01/20 13:55 SP (Rec: 09/01/20 15:51 SP [id number]) Out-Patient Physical Therapy Visit Information Visit Information Visit Type Treatment Note Visit Note pt 6 min late for appt Visit Start Time 13:51 Visit Stop Time 14:33 Total Visit Minutes 42 Visit Number 7 Number of RADIAL SAW OPERATOR Visits 3 Evaluation Information Evaluation Date 08/06/20 PT-OP-B Current Condition Start: 08/06/20 14:30 Freq: Status: Active Protocol: Document 08/06/20 13:45 DCW (Rec: 08/06/20 14:56 DCW [id number]) Current Condition History of Current Condition Onset Date 2 years Current Complaints Neck pain/stiffness History of Current Condition Pt is a 75 year old female presenting with a 1.5-2 year history of neck pain and stiffness. Pt notes it has been worsening over the last few years, and finally got to a point where she felt she had to bring it up to Dr Loyd. Pt reports any heavier-duty activity, such as gardening, cooking, and using her weed- kiran, as well as sitting for too long in her recliner, all cause neck pain. Pt notes some occasional left arm pain. Treatment Goals Patient/Caregiver Goals I want to reduce all this tension in my neck. I feel like it is just too much. PT-OP-C Subjective Start: 08/06/20 14:30 Freq: Status: Active Protocol: Document 09/01/20 13:55 SP (Rec: 09/01/20 15:51 SP [id number]) OP-PT Subjective Patient Comments Patient Comments Pt stated not having as much pain in R side of neck today, is more aware of posture during cleanin carpets, dusting and still has come headaches but overall better. Pt stated has noted for years that her L shld has pain when reaches out to side and rotation arm gets pain and snapping feeling but hasn't seen anyone for it. Wondering if PT can assess it, doesn't really want to take the time to see Dr if it's nothing due to expenses and hasn't met deductible yet this yr. Patient Reported Progress Improving PT-OP-F Manual Assessment Start: 08/06/20 14:30 Freq: Status: Active Protocol: Document 08/06/20 13:45 DCW (Rec: 08/06/20 14:56 DCW [id number]) Manual Assessments Soft Tissue Assessment Soft Tissue Mobility Assessment Severe hypertonia along L SCM, scalenes, upper trap, levator scap Moderate hypertonia along R SCM, scalenes, upper trap, levator scap Joint Mobility Assessment Joint Mobility Assessment Soft tissue tightness results in limited cervical ROM. At rest, pt displays a 10? R cervical rotation and a 5? L lateral flexion PT-OP-J Posture/Palpation/Skin Start: 08/06/20 14:30 Freq: Status: Active Protocol: Document 08/06/20 13:45 DCW (Rec: 08/06/20 14:56 DCW [id number]) Posture Evaluation Position Sitting Evaluation View Anterior Head/C-Spine Posture Rotated Right,Side Bent Left PT-OP-K Range of Motion Start: 08/06/20 14:30 Freq: Status: Active Protocol: Document 08/06/20 13:45 DCW (Rec: 08/06/20 14:56 DCW [id number]) Cervical Spine Range of Motion Cervical Spine Active Degrees Testing Position Sitting Flexion 30 Extension 20 Rotation Left 32 Rotation Right 68 Lateral Flexion Left 15 Lateral Flexion Right 30 ROM Limitations Soft Tissue Tightness, Contracture,Muscle Tone,Pain PT-OP-L Special Tests Start: 08/06/20 14:30 Freq: Status: Active Protocol: Document 08/06/20 13:45 DCW (Rec: 08/06/20 14:56 DCW [id number]) Special Tests Cervical Spine Special Tests Spurling's Test Test Results Negative Traction Test Results Pain relief Passive Neck Flexion Test Results Negative Foraminal Compression Test Results Positive PT-OP-Q Treatments Start: 08/06/20 14:30 Freq: Status: Active Protocol: Document 09/01/20 13:55 SP (Rec: 09/01/20 15:51 SP [id number]) Therapeutic Exercises Prone Exercises prone press up Prone Exercise Name press up> progressed serratus onto elbows Equipment Used pillows under pelvis Reps/Minutes 5 hold x6, 10 hold x3 Comments cued chin tuck, pain free up o Sidelying Exercises open book Sidelying Exercise Name head follow arm- added to HEP Side bilateral Reps/Minutes x10 R and L Comments cued scap stab depresion awarness Sitting Exercises Self-STM Sitting Exercise Name STM to upper trap, interscap mus, suprapinatus Equipment Used racquetball at wall and theracane- performs at home Comments MWM- good releases feedback Standing Exercises wall posture Standing Exercise Name stationary then head turns with TS ext Reps/Minutes 4 min Comments cued chin tuck awareness shld ext isometric w /CS rotation Standing Exercise Name reviewed HEP Resistance TB #2 Reps/Minutes 1x10 head turns Comments cue x1 for CS alignment adn scap stab depression Self-Care/Home Management Treatment Education Patient Education Pain Management,Posture Other Education Reviewed self STMs and postural alignment to assist w / decrease compensations and pain mgt. PT-OP-R Modalities Start: 08/27/20 14:56 Freq: Status: Active Protocol: Document 08/27/20 13:06 SP (Rec: 08/27/20 15:07 SP [id number]) Electric Stimulation Electric Stimulation Interferential Current (IFC) Body Location R UT Duration (Minutes) 10 Intensity 21 Patient Position Sitting Combined With Heat/Cold Hot Pack Comments good feedback results, almost no pain, tightness. PT-OP-T Assessment and Plan Start: 08/06/20 14:30 Freq: Status: Active Protocol: Document 09/01/20 13:55 SP (Rec: 09/01/20 15:51 SP [id number]) Physical Therapy Assessment Goals Three Impairment Significant restriction in cervical ROM Viticulturist Goal (LTG) Pt to present with at least 45 ? bilateral lateral flexion and 70? bilateral cervical rotation to ensure she can properly turn head to look at traffic while driving. LTG Duration 10/06/20 Two Impairment Pt exhibits a 10? right cervical rotation and 5? left SB at rest Assisted Goal (LTG) Pt to sit in a relaxed position with her head aligned in neutral 100% of the time 09/01/20: progressing, reviewed use of pillows for postural alignment. LTG Duration 10/06/20 progressing One Impairment Pt does not have an appropriate home exercise program Short Term Goal (STG) Pt to be independent and compliant with an appropriate HEP STG Duration 09/05/20 Assessment Summary Assessment Pt responded well to self STMs using theracane and uses racquetball at home for assist relief. HEP review for scap stab, neutral cervical spine strengthening. Initiated prone pressup today with no adverse affects, cued as needed for self awareness in alignment. Physical Therapy Plan Frequency and Duration Frequency of Treatment 2x/Week Duration of Treatment Two months Plan of Care Start Date 08/06/20 Plan of Care End Date 10/06/20 Therapeutic Interventions Therapeutic Interventions Home Exercise Program,Joint Mobilizations,Manual Therapy, Patient/Caregiver Education, Self-Care/Home Management,Soft Tissue Mobilization,Taping, Therapeutic Activities, Therapeutic Exercises Modalities Cold Pack/Ice Massage,Electric Stimulation,Hot Packs, Ultrasound Next Visit Focus/Plan Next Note Type Treatment Note Next Visit Plan Assess response to cervical neutral alignment strengthening w/ balance flexibility. PT POC: Cervical STM, Flexibility exercises
--- NOTE | 2020-09-04 15:17 | PT.OTN ---
Current Diagnoses Stiffness of other specified joint, not elsewhere classified (09/04/20) Cervicalgia (09/04/20) Physical Therapy Treatment Note PT-OP-A Visit Information Start: 08/06/20 14:30 Freq: Status: Active Protocol: Document 09/04/20 14:35 DCW (Rec: 09/04/20 15:16 DCW [id number]) Out-Patient Physical Therapy Visit Information Visit Information Visit Type Treatment Note Visit Start Time 14:35 Visit Stop Time 15:25 Total Visit Minutes 50 Visit Number 8 Number of FIRE SPRINKLER INSPECTOR Visits 0 Evaluation Information Evaluation Date 08/06/20 PT-OP-B Current Condition Start: 08/06/20 14:30 Freq: Status: Active Protocol: Document 08/06/20 13:45 DCW (Rec: 08/06/20 14:56 DCW [id number]) Current Condition History of Current Condition Onset Date 2 years Current Complaints Neck pain/stiffness History of Current Condition Pt is a 75 year old female presenting with a 1.5-2 year history of neck pain and stiffness. Pt notes it has been worsening over the last few years, and finally got to a point where she felt she had to bring it up to Dr Loyd. Pt reports any heavier-duty activity, such as gardening, cooking, and using her weed- kiran, as well as sitting for too long in her recliner, all cause neck pain. Pt notes some occasional left arm pain. Treatment Goals Patient/Caregiver Goals I want to reduce all this tension in my neck. I feel like it is just too much. PT-OP-C Subjective Start: 08/06/20 14:30 Freq: Status: Active Protocol: Document 09/04/20 14:35 DCW (Rec: 09/04/20 15:16 DCW [id number]) OP-PT Subjective Patient Comments Patient Comments Overall, better than when I started, but I think I irritated something when I was doing my exercises yesterday. PT-OP-F Manual Assessment Start: 08/06/20 14:30 Freq: Status: Active Protocol: Document 08/06/20 13:45 DCW (Rec: 08/06/20 14:56 DCW [id number]) Manual Assessments Soft Tissue Assessment Soft Tissue Mobility Assessment Severe hypertonia along L SCM, scalenes, upper trap, levator scap Moderate hypertonia along R SCM, scalenes, upper trap, levator scap Joint Mobility Assessment Joint Mobility Assessment Soft tissue tightness results in limited cervical ROM. At rest, pt displays a 10? R cervical rotation and a 5? L lateral flexion PT-OP-J Posture/Palpation/Skin Start: 08/06/20 14:30 Freq: Status: Active Protocol: Document 08/06/20 13:45 DCW (Rec: 08/06/20 14:56 DCW [id number]) Posture Evaluation Position Sitting Evaluation View Anterior Head/C-Spine Posture Rotated Right,Side Bent Left PT-OP-K Range of Motion Start: 08/06/20 14:30 Freq: Status: Active Protocol: Document 08/06/20 13:45 DCW (Rec: 08/06/20 14:56 DCW [id number]) Cervical Spine Range of Motion Cervical Spine Active Degrees Testing Position Sitting Flexion 30 Extension 20 Rotation Left 32 Rotation Right 68 Lateral Flexion Left 15 Lateral Flexion Right 30 ROM Limitations Soft Tissue Tightness, Contracture,Muscle Tone,Pain PT-OP-L Special Tests Start: 08/06/20 14:30 Freq: Status: Active Protocol: Document 08/06/20 13:45 DCW (Rec: 08/06/20 14:56 DCW [id number]) Special Tests Cervical Spine Special Tests Spurling's Test Test Results Negative Traction Test Results Pain relief Passive Neck Flexion Test Results Negative Foraminal Compression Test Results Positive PT-OP-Q Treatments Start: 08/06/20 14:30 Freq: Status: Active Protocol: Document 09/04/20 14:35 DCW (Rec: 09/04/20 15:16 DCW [id number]) Manual Therapy Treatment Soft Tissue Mobilization scapular PNF Body Location R retraction/ depression Intensity/Depth II Body Position side Comments good feedback stabilization. 4 Body Location SCM Mobilization Type Strumming,Sustained Pressure, Trigger Point Release Intensity/Depth Moderate Body Position Hooklying Comments [facility] head nod/turn 3 Body Location Suboccipitals, SOR Mobilization Type Strumming,Sustained Pressure Intensity/Depth Moderate Body Position Hooklying Comments [facility] head nod/turn 2 Body Location Upper Trap Mobilization Type Strumming,Sustained Pressure Intensity/Depth Moderate Body Position Hooklying Comments [facility] head nod/turn 1 Body Location Cervical Paraspinals Mobilization Type Sustained Pressure,Trigger Point Release Intensity/Depth Moderate Body Position Hooklying Comments [facility] head nod/turn PT-OP-R Modalities Start: 08/27/20 14:56 Freq: Status: Active Protocol: Document 09/04/20 14:35 DCW (Rec: 09/04/20 15:16 DCW [id number]) Electric Stimulation Electric Stimulation Interferential Current (IFC) Body Location R UT Duration (Minutes) 15 Intensity 21 Patient Position Sitting Combined With Heat/Cold Hot Pack PT-OP-T Assessment and Plan Start: 08/06/20 14:30 Freq: Status: Active Protocol: Document 09/04/20 14:35 DCW (Rec: 09/04/20 15:16 DCW [id number]) Physical Therapy Assessment Goals Three Impairment Significant restriction in cervical ROM Jail Goal (LTG) Pt to present with at least 45 ? bilateral lateral flexion and 70? bilateral cervical rotation to ensure she can properly turn head to look at traffic while driving. LTG Duration 10/06/20 Two Impairment Pt exhibits a 10? right cervical rotation and 5? left SB at rest Jail Goal (LTG) Pt to sit in a relaxed position with her head aligned in neutral 100% of the time 09/01/20: progressing, reviewed use of pillows for postural alignment. LTG Duration 10/06/20 progressing One Impairment Pt does not have an appropriate home exercise program Short Term Goal (STG) Pt to be independent and compliant with an appropriate HEP STG Duration 09/05/20 Assessment Summary Assessment Pt tolerated treatment very well, noted she was so comfortable I could take a nap . Physical Therapy Plan Frequency and Duration Frequency of Treatment 2x/Week Duration of Treatment Two months Plan of Care Start Date 08/06/20 Plan of Care End Date 10/06/20 Therapeutic Interventions Therapeutic Interventions Home Exercise Program,Joint Mobilizations,Manual Therapy, Patient/Caregiver Education, Self-Care/Home Management,Soft Tissue Mobilization,Taping, Therapeutic Activities, Therapeutic Exercises Modalities Cold Pack/Ice Massage,Electric Stimulation,Hot Packs, Ultrasound Next Visit Focus/Plan Next Note Type Treatment Note Next Visit Plan Assess response to cervical neutral alignment strengthening w/ balance flexibility. PT POC: Cervical STM, Flexibility exercises
--- NOTE | 2020-09-09 15:57 | PT.OTN ---
Current Diagnoses Stiffness of other specified joint, not elsewhere classified (09/09/20) Cervicalgia (09/09/20) Physical Therapy Treatment Note PT-OP-A Visit Information Start: 08/06/20 14:30 Freq: Status: Active Protocol: Document 09/09/20 15:20 DCW (Rec: 09/09/20 15:54 DCW [id number]) Out-Patient Physical Therapy Visit Information Visit Information Visit Type Discharge Summary Visit Start Time 15:20 Visit Stop Time 16:05 Total Visit Minutes 45 Visit Number 9 Number of MARKETING PROJECT MANAGER Visits 0 Evaluation Information Evaluation Date 08/06/20 PT-OP-B Current Condition Start: 08/06/20 14:30 Freq: Status: Active Protocol: Document 08/06/20 13:45 DCW (Rec: 08/06/20 14:56 DCW [id number]) Current Condition History of Current Condition Onset Date 2 years Current Complaints Neck pain/stiffness History of Current Condition Pt is a 75 year old female presenting with a 1.5-2 year history of neck pain and stiffness. Pt notes it has been worsening over the last few years, and finally got to a point where she felt she had to bring it up to Dr Loyd. Pt reports any heavier-duty activity, such as gardening, cooking, and using her weed- kiran, as well as sitting for too long in her recliner, all cause neck pain. Pt notes some occasional left arm pain. Treatment Goals Patient/Caregiver Goals I want to reduce all this tension in my neck. I feel like it is just too much. PT-OP-C Subjective Start: 08/06/20 14:30 Freq: Status: Active Protocol: Document 09/09/20 15:20 DCW (Rec: 09/09/20 15:54 DCW [id number]) OP-PT Subjective Patient Comments Patient Comments I think today is my last session, and I'm alright with that. I have all my exercises for home. PT-OP-F Manual Assessment Start: 08/06/20 14:30 Freq: Status: Active Protocol: Document 09/09/20 15:20 DCW (Rec: 09/09/20 15:56 DCW [id number]) Manual Assessments Soft Tissue Assessment Soft Tissue Mobility Assessment Mild hypertonia along bilateral SCM, scalenes, upper trap, levator scap PT-OP-J Posture/Palpation/Skin Start: 08/06/20 14:30 Freq: Status: Active Protocol: Document 09/09/20 15:20 DCW (Rec: 09/09/20 15:56 DCW [id number]) Posture Evaluation Position Sitting Evaluation View Anterior Head/C-Spine Posture Neutral Position PT-OP-K Range of Motion Start: 08/06/20 14:30 Freq: Status: Active Protocol: Document 09/09/20 15:20 DCW (Rec: 09/09/20 15:56 DCW [id number]) Cervical Spine Range of Motion Cervical Spine Active Degrees Testing Position Sitting Flexion 65 Extension 40 Rotation Left 55 Rotation Right 65 Lateral Flexion Left 30 Lateral Flexion Right 35 ROM Limitations Soft Tissue Tightness,Muscle Tone PT-OP-L Special Tests Start: 08/06/20 14:30 Freq: Status: Active Protocol: Document 09/09/20 15:20 DCW (Rec: 09/09/20 15:56 DCW [id number]) Special Tests Cervical Spine Special Tests Foraminal Compression Test Results Negative PT-OP-Q Treatments Start: 08/06/20 14:30 Freq: Status: Active Protocol: Document 09/09/20 15:20 DCW (Rec: 09/09/20 15:54 DCW [id number]) Manual Therapy Treatment Soft Tissue Mobilization scapular PNF Body Location R retraction/ depression Intensity/Depth II Body Position side Comments good feedback stabilization. 4 Body Location SCM Mobilization Type Strumming,Sustained Pressure, Trigger Point Release Intensity/Depth Moderate Body Position Hooklying Comments [facility] head nod/turn 3 Body Location Suboccipitals, SOR Mobilization Type Strumming,Sustained Pressure Intensity/Depth Moderate Body Position Hooklying Comments [facility] head nod/turn 2 Body Location Upper Trap Mobilization Type Strumming,Sustained Pressure Intensity/Depth Moderate Body Position Hooklying Comments [facility] head nod/turn 1 Body Location Cervical Paraspinals Mobilization Type Sustained Pressure,Trigger Point Release Intensity/Depth Moderate Body Position Hooklying Comments [facility] head nod/turn PT-OP-R Modalities Start: 08/27/20 14:56 Freq: Status: Active Protocol: Document 09/09/20 15:20 DCW (Rec: 09/09/20 15:54 DCW [id number]) Electric Stimulation Electric Stimulation Interferential Current (IFC) Body Location R UT Duration (Minutes) 15 Intensity 19 Patient Position Sitting Combined With Heat/Cold Hot Pack PT-OP-T Assessment and Plan Start: 08/06/20 14:30 Freq: Status: Active Protocol: Document 09/09/20 15:20 DCW (Rec: 09/09/20 15:54 DCW [id number]) Physical Therapy Assessment Goals Three Impairment Significant restriction in cervical ROM Carding Machine Operator Goal (LTG) Pt to present with at least 45 ? bilateral lateral flexion and 70? bilateral cervical rotation to ensure she can properly turn head to look at traffic while driving. LTG Duration 10/06/20 - Nearly met Two Impairment Pt exhibits a 10? right cervical rotation and 5? left SB at rest [facility] Goal (LTG) Pt to sit in a relaxed position with her head aligned in neutral 100% of the time 09/01/20: progressing, reviewed use of pillows for postural alignment. LTG Duration Met One Impairment Pt does not have an appropriate home exercise program Short Term Goal (STG) Pt to be independent and compliant with an appropriate HEP STG Duration Met Assessment Summary Assessment Pt tolerated treatment well, no current concerns or difficulties. PT showing improved cervical ROM, appropriate to d/c at this time. Physical Therapy Plan Frequency and Duration Frequency of Treatment 2x/Week Duration of Treatment Two months Plan of Care Start Date 08/06/20 Plan of Care End Date 10/06/20 Therapeutic Interventions Therapeutic Interventions Home Exercise Program,Joint Mobilizations,Manual Therapy, Patient/Caregiver Education, Self-Care/Home Management,Soft Tissue Mobilization,Taping, Therapeutic Activities, Therapeutic Exercises Modalities Cold Pack/Ice Massage,Electric Stimulation,Hot Packs, Ultrasound Discharge Physical Therapy Discharge Reasons Goals Met Next Visit Focus/Plan Next Note Type Treatment Note Next Visit Plan Assess response to cervical neutral alignment strengthening w/ balance flexibility. PT POC: Cervical STM, Flexibility exercises
== END 2020-09-15 14:45 | disposition home or self-care (01) ==
LOC: PHYS 15:15
PROVIDERS: Family Provider Internal Medicine; PCP Internal Medicine; Referring Provider Internal Medicine; Visit Provider Internal Medicine
DX: M54.2 Cervicalgia (principal); M25.69 Stiffness of other specified joint, not elsewhere classified
CPT/HCPCS: 97014; 97110; 97140; 97161; 97535; G0283

== ENCOUNTER → 2020-12-19 11:18 | Outpatient (CLI) | payer MEDICARE, OTHER, SELFPAY ==
[2020-12-19 12:59] LABS: Alanine Aminotransferase 22 IU/L (<35); Albumin 4.1 g/dL (3.5-5.0); Albumin Globulin Ratio 1.8 (1.0-2.8); Alkaline Phosphatase 60 U/L (38-126); Aspartate Aminotransferase 30 IU/L (14-36); BUN Creatinine Ratio 16.4 (6-22); Bilirubin Total 0.6 mg/dL (0.2-1.3); Blood Urea Nitrogen 11 mg/dL (7-17); Calcium 9.4 mg/dL (8.4-10.2); Carbon Dioxide 29 mmol/L (22-32); Chloride 97 mmol/L (98-107); Cholesterol 203 mg/dL (140-199); Estimated Glomerular Filt Rate > 60.0 mL/min (>60); Globulin 2.3 g/dL (1.7-4.1); Glucose 85 mg/dL (80-110); HDL Cholesterol 85 mg/dL (40-60); HEMOLYSIS < 15 (0-50); LDL Cholesterol Calculated 104 mg/dL (<100); Potassium 4.7 mmol/L (3.4-5.1); Sodium 132 mmol/L (137-145); Total Protein 6.4 g/dL (6.3-8.2); Triglycerides 68 mg/dL (35-150)
== END ==
PROVIDERS: Family Provider Internal Medicine; PCP Internal Medicine; Referring Provider Internal Medicine; Visit Provider Internal Medicine
DX: Z13.220 Encounter for screening for lipoid disorders (principal); F32.4 Major depressive disorder, single episode, in partial remission; Z13.1 Encounter for screening for diabetes mellitus; K21.9 Gastro-esophageal reflux disease without esophagitis; J45.20 Mild intermittent asthma, uncomplicated
CPT/HCPCS: 36415; 80053; 80061; 84443

== ENCOUNTER → 2020-12-28 16:18 | Outpatient (CLI) | payer MEDICARE, OTHER, SELFPAY ==
--- NOTE | 2020-12-28 | DI.MG.S_ITS ---
BILATERAL DIGITAL SCREENING MAMMOGRAM 3D/2D WITH CAD: 12/28/2020 CLINICAL: Routine screening. Comparison is made to exams dated: 12/28/2019 mammogram, 04/17/2017 mammogram, and 03/29/2016 mammogram - [facility]. There are scattered fibroglandular elements in both breasts. Current study was also evaluated with a Computer Aided Detection (CAD) system. There are benign vascular calcifications in both breasts. There is a mole marker on the left breast. No significant masses, calcifications, or other findings are seen in either breast. There has been no significant interval change. IMPRESSION: BENIGN There is no mammographic evidence of malignancy. A 1 year screening mammogram is recommended. This exam was interpreted at Station ID: [id number]. NOTE: For mammograms, a report in lay terms will be sent to the patient. Approximately 15% of breast malignancies will not be visualized mammographically. In the management of a palpable breast mass, a negative mammogram must not discourage biopsy of a clinically suspicious lesion. Electronically Signed By: Aureliano Bourgeois acr/dolly:12/28/2020 17:28:26 letter sent: Normal Exam ACR BI-RADS Category 2: Benign Finding(s) 3342F
== END ==
PROVIDERS: Family Provider Internal Medicine; PCP Internal Medicine; Referring Provider Internal Medicine; Visit Provider Internal Medicine
DX: Z12.31 Encounter for screening mammogram for malignant neoplasm of breast (principal)
CPT/HCPCS: 77063; 77067

== ENCOUNTER → 2021-01-01 12:43 | Outpatient (CLI) | payer MEDICARE, OTHER, SELFPAY ==
--- NOTE | 2021-01-01 12:44 | DI.RAD.S_ITS ---
PROCEDURE: XR DEXA AXIAL SKELETON INDICATIONS: Osteopenia COMPARISON: None. FINDINGS: This blank DEXA report has been sent in error by the PACS system. The correct and complete report will be forthcoming in 1-2 days. Thank you for your patience and understanding. Dictated by: Carli Severino MD, PhD on 01/01/2021 at 16:19 Approved by: Carli Severino MD, PhD on 01/01/2021 at 16:19
== END ==
PROVIDERS: Family Provider Internal Medicine; PCP Internal Medicine; Referring Provider Internal Medicine; Visit Provider Internal Medicine
DX: M81.0 Age-related osteoporosis without current pathological fracture; Z78.0 Asymptomatic menopausal state
CPT/HCPCS: 77080

== ENCOUNTER → 2021-10-11 16:17 | Outpatient (CLI) | payer MEDICARE, OTHER, SELFPAY ==
[2021-10-11 18:01] LABS: Alanine Aminotransferase 22 IU/L (<35); Albumin 4.1 g/dL (3.5-5.0); Albumin Globulin Ratio 1.6 (1.0-2.8); Alkaline Phosphatase 62 U/L (38-126); Aspartate Aminotransferase 30 IU/L (14-36); BUN Creatinine Ratio 26.2 (6-22); Bilirubin Total 0.2 mg/dL (0.2-1.3); Blood Urea Nitrogen 17 mg/dL (7-17); Calcium 8.6 mg/dL (8.4-10.2); Carbon Dioxide 28 mmol/L (22-32); Chloride 93 mmol/L (98-107); Estimated Glomerular Filt Rate > 60 mL/min (>60); Globulin 2.6 g/dL (1.7-4.1); Glucose 85 mg/dL (80-110); HEMOLYSIS < 15 (0-50); Potassium 4.8 mmol/L (3.4-5.1); Sodium 127 mmol/L (137-145); Total Protein 6.7 g/dL (6.3-8.2); Uric Acid 2.2 mg/dL (2.5-6.2)
== END ==
PROVIDERS: Family Provider Internal Medicine; PCP Internal Medicine; Referring Provider Internal Medicine; Visit Provider Internal Medicine
DX: F32.4 Major depressive disorder, single episode, in partial remission (principal); M10.9 Gout, unspecified; Z79.899 Other long term (current) drug therapy
CPT/HCPCS: 36415; 80053; 84550

== ENCOUNTER → 2022-01-18 15:02 | Outpatient (CLI) | payer MEDICARE, OTHER, SELFPAY ==
--- NOTE | 2022-01-18 | DI.MG.S_ITS ---
BILATERAL DIGITAL SCREENING MAMMOGRAM 3D/2D WITH CAD: 01/18/2022 CLINICAL: Routine screening. Comparison is made to exams dated: 12/28/2020 mammogram, 12/28/2019 mammogram, 04/17/2017 mammogram, and 03/29/2016 mammogram - [facility]. There are scattered areas of fibroglandular density in both breasts (category b / 25%-50% glandular tissue). Current study was also evaluated with a Computer Aided Detection (CAD) system. There are benign vascular calcifications in both breasts. There also are benign post operative findings in the left breast. No significant masses, calcifications, or other findings are seen in either breast. There has been no significant interval change. IMPRESSION: BENIGN There is no mammographic evidence of malignancy. A 1 year screening mammogram is recommended. Based on the Tyrer Cuzick model (a risk assessment model) the patient's lifetime risk is 4.6% and her 10 year risk is 4.6%. According to the ACR, ACS, and NCCN guidelines, an annual breast MRI exam along with mammogram is recommended if the patient's lifetime risk is 20% or greater. This exam was interpreted at Station ID: [id number]. NOTE: For mammograms, a report in lay terms will be sent to the patient. Approximately 15% of breast malignancies will not be visualized mammographically. In the management of a palpable breast mass, a negative mammogram must not discourage biopsy of a clinically suspicious lesion. Electronically Signed By: Luther burgess/dolly:01/19/2022 10:29:35 letter sent: Normal Exam ACR BI-RADS Category 2: Benign Finding(s) 3342F
== END ==
PROVIDERS: Family Provider Internal Medicine; PCP Internal Medicine; Referring Provider Internal Medicine; Visit Provider Internal Medicine
DX: Z12.31 Encounter for screening mammogram for malignant neoplasm of breast (principal)
CPT/HCPCS: 77063; 77067

== ENCOUNTER → 2022-12-27 14:19 | Outpatient (CLI) | payer MEDICARE, OTHER, SELFPAY ==
[2022-12-27 15:33] LABS: Alanine Aminotransferase 21 IU/L (<35); Albumin 3.9 g/dL (3.5-5.0); Albumin Globulin Ratio 1.6 (1.0-2.8); Alkaline Phosphatase 57 U/L (38-126); Aspartate Aminotransferase 28 IU/L (14-36); BUN Creatinine Ratio 23.4 (6-22); Bilirubin Total 0.4 mg/dL (0.2-1.3); Blood Urea Nitrogen 18 mg/dL (7-17); Calcium 9.4 mg/dL (8.4-10.2); Carbon Dioxide 30 mmol/L (22-32); Chloride 91 mmol/L (98-107); Estimated Glomerular Filt Rate > 60 mL/min (>60); Globulin 2.5 g/dL (1.7-4.1); Glucose 98 mg/dL (80-110); HEMOLYSIS < 15 (0-50); Potassium 5.2 mmol/L (3.4-5.1); Sodium 125 mmol/L (137-145); Total Protein 6.4 g/dL (6.3-8.2)
== END ==
PROVIDERS: Family Provider Internal Medicine; PCP Internal Medicine; Referring Provider Internal Medicine; Visit Provider Internal Medicine
DX: I10 Essential (primary) hypertension (principal); G25.0 Essential tremor
CPT/HCPCS: 36415; 80053

== ENCOUNTER → 2023-02-03 16:10 | Outpatient (CLI) | payer MEDICARE, OTHER, SELFPAY ==
--- NOTE | 2023-02-03 16:12 | DI.MG.S_ITS ---
BILATERAL DIGITAL SCREENING MAMMOGRAM 3D/2D WITH CAD: 02/03/2023 CLINICAL: Routine screening. Comparison is made to exams dated: 01/18/2022 mammogram, 12/28/2020 mammogram, and 12/28/2019 mammogram - [facility]. There are scattered areas of fibroglandular density in both breasts (category b / 25%-50% glandular tissue). Current study was also evaluated with a Computer Aided Detection (CAD) system. There are benign vascular calcifications in both breasts. There also are benign post operative findings in the left breast. No significant masses, calcifications, or other findings are seen in either breast. There has been no significant interval change. IMPRESSION: BENIGN There is no mammographic evidence of malignancy. A 1 year screening mammogram is recommended. Based on the Tyrer Cuzick model (a risk assessment model) the patient's lifetime risk is 4.3% and her 10 year risk is 0.0%. According to the ACR, ACS, and NCCN guidelines, an annual breast MRI exam along with mammogram is recommended if the patient's lifetime risk is 20% or greater. This exam was interpreted at Station ID: [id number]. NOTE: For mammograms, a report in lay terms will be sent to the patient. Approximately 15% of breast malignancies will not be visualized mammographically. In the management of a palpable breast mass, a negative mammogram must not discourage biopsy of a clinically suspicious lesion. Electronically Signed By: Aureliano jiang/dolly:02/03/2023 17:41:02 letter sent: Normal Exam ACR BI-RADS Category 2: Benign Finding(s) 3342F
== END ==
PROVIDERS: Family Provider Internal Medicine; PCP Internal Medicine; Referring Provider Internal Medicine; Visit Provider Internal Medicine
DX: Z12.31 Encounter for screening mammogram for malignant neoplasm of breast (principal)
CPT/HCPCS: 77063; 77067

== ENCOUNTER → 2023-03-24 14:57 | Outpatient (CLI) | payer MEDICARE, OTHER, SELFPAY ==
[2023-03-24 16:27] LABS: Influenza A - CEPHEID Flu A NEGATIVE (NEGATIVE); Influenza B - CEPHEID Flu B NEGATIVE (NEGATIVE); Respiratory Syncytial Virus Negative (Negative)
[2023-03-24 16:35] LABS: COVID-19 CEPHEID 4-PLEX PCR Negative (Negative)
== END ==
PROVIDERS: Family Provider Internal Medicine; PCP Internal Medicine; Visit Provider Nurse Practitioner Family
DX: J02.9 Acute pharyngitis, unspecified (principal); B34.9 Viral infection, unspecified; R05.1 Acute cough
CPT/HCPCS: 0241U

== ENCOUNTER → 2024-01-15 16:00 | Outpatient (CLI) | payer MEDICARE, OTHER, SELFPAY ==
[2024-01-15 16:54] LABS: Alanine Aminotransferase 22 IU/L (<35); Albumin 4.1 g/dL (3.5-5.0); Albumin Globulin Ratio 1.5 (1.0-2.8); Alkaline Phosphatase 55 U/L (38-126); Aspartate Aminotransferase 33 IU/L (14-36); BUN Creatinine Ratio 17.6 (6-22); Bilirubin Total 0.4 mg/dL (0.2-1.3); Blood Urea Nitrogen 15 mg/dL (7-17); Calcium 9.5 mg/dL (8.4-10.2); Carbon Dioxide 29 mmol/L (22-32); Chloride 89 mmol/L (98-107); Estimated Glomerular Filt Rate > 60 mL/min (>60); Globulin 2.7 g/dL (1.7-4.1); Glucose 99 mg/dL (80-110); HEMOLYSIS < 15 (0-50); Potassium 4.9 mmol/L (3.4-5.1); Sodium 122 mmol/L (137-145); Total Protein 6.8 g/dL (6.3-8.2)
== END ==
PROVIDERS: Family Provider Internal Medicine; PCP Internal Medicine; Referring Provider Internal Medicine; Visit Provider Internal Medicine
DX: I10 Essential (primary) hypertension (principal); G25.0 Essential tremor; E87.1 Hypo-osmolality and hyponatremia
CPT/HCPCS: 36415; 80053

== ENCOUNTER → 2024-02-19 | Outpatient (CLI) | payer MEDICARE, OTHER, SELFPAY ==
--- NOTE | 2024-02-19 14:08 | DI.MG.S_ITS ---
BILATERAL DIGITAL SCREENING MAMMOGRAM 3D/2D WITH CAD: 02/19/2024 CLINICAL: Routine screening. Comparison is made to exams dated: 02/03/2023 mammogram, 01/18/2022 mammogram, and 12/28/2020 mammogram - [facility]. There are scattered areas of fibroglandular density (category b / 25%-50% glandular tissue). Current study was also evaluated with a Computer Aided Detection (CAD) system. There is a possible irregular asymmetry in the left breast middle depth central to the nipple seen on the mediolateral oblique view only. No other significant masses, calcifications, or other findings are seen in either breast. IMPRESSION: INCOMPLETE: NEED ADDITIONAL IMAGING EVALUATION The possible irregular asymmetry in the left breast is indeterminate. Additional views with possible ultrasound are recommended. Based on the Tyrer Cuzick model (a risk assessment model) the patient's lifetime risk is 3.9% and her 10 year risk is 0.0%. According to the ACR, ACS, and NCCN guidelines, an annual breast MRI exam along with mammogram is recommended if the patient's lifetime risk is 20% or greater. This exam was interpreted at Station ID: [id number]. NOTE: For mammograms, a report in lay terms will be sent to the patient. Approximately 15% of breast malignancies will not be visualized mammographically. In the management of a palpable breast mass, a negative mammogram must not discourage biopsy of a clinically suspicious lesion. Electronically Signed By: Luther Shah M.D. [facility] [place]/:02/20/2024 14:12:25 letter sent: Additional Imaging Needed ACR BI-RADS Category 0: Incomplete: Need Additional Imaging Evaluation
== END ==
PROVIDERS: Family Provider Internal Medicine; PCP Internal Medicine; Referring Provider Internal Medicine; Visit Provider Internal Medicine
DX: Z12.31 Encounter for screening mammogram for malignant neoplasm of breast (principal)
CPT/HCPCS: 77063; 77067

== ENCOUNTER → 2024-03-13 08:46 | Outpatient (CLI) | payer MEDICARE, OTHER, SELFPAY ==
--- NOTE | 2024-03-13 08:48 | DI.US.S_ITS ---
LIMITED ULTRASOUND OF LEFT BREAST: 03/13/2024 CLINICAL: Patient returns today to evaluate a focal asymmetry in the left breast. Comparison is made to exams dated: 03/13/2024 mammogram, 02/19/2024 mammogram, 02/03/2023 mammogram, and 01/18/2022 mammogram - [facility]. Real-time ultrasound of the left breast retroareolar was performed. Lepe scale images of the real-time examination were reviewed. No significant abnormalities were seen sonographically in the left breast. IMPRESSION: NEGATIVE There is no sonographic evidence of malignancy. A 1 year screening mammogram is recommended. Exam findings were conveyed to the patient. This exam was interpreted at Station ID: [id number]. Electronically Signed By: Luther Shah M.D. sl[facility]/:03/13/2024 10:18:57 letter sent: Normal Exam ACR BI-RADS Category 1: Negative
--- NOTE | 2024-03-13 08:48 | DI.MG.S_ITS ---
UNILATERAL LEFT DIGITAL DIAGNOSTIC MAMMOGRAM 3D/2D WITH ADDITIONAL VIEWS: 03/13/2024 CLINICAL: Additional evaluation requested from prior study. Comparison is made to exams dated: 02/19/2024 mammogram, 02/03/2023 mammogram, 01/18/2022 mammogram, and 12/28/2020 mammogram - [facility]. There are scattered areas of fibroglandular density (category b / 25%-50% glandular tissue). There is a possible irregular asymmetry in the left breast middle depth central to the nipple seen on the mediolateral oblique view only. This is not seen in additional views. No other significant masses or calcifications are seen in the breast. IMPRESSION: INCOMPLETE: NEED ADDITIONAL IMAGING EVALUATION The possible irregular asymmetry in the left breast is indeterminate. A second look ultrasound is recommended and will immediately follow. Based on the Tyrer Cuzick model (a risk assessment model) the patient's lifetime risk is 3.9% and her 10 year risk is 0.0%. According to the ACR, ACS, and NCCN guidelines, an annual breast MRI exam along with mammogram is recommended if the patient's lifetime risk is 20% or greater. This exam was interpreted at Station ID: [id number]. NOTE: For mammograms, a report in lay terms will be sent to the patient. Approximately 15% of breast malignancies will not be visualized mammographically. In the management of a palpable breast mass, a negative mammogram must not discourage biopsy of a clinically suspicious lesion. Electronically Signed By: Luther Shah M.D. slc/:03/13/2024 10:17:54 letter sent: Additional Imaging Needed ACR BI-RADS Category 0: Incomplete: Need Additional Imaging Evaluation
== END ==
PROVIDERS: Family Provider Internal Medicine; PCP Internal Medicine; Referring Provider Internal Medicine; Visit Provider Internal Medicine
DX: R92.8 Other abnormal and inconclusive findings on diagnostic imaging of breast (principal)
CPT/HCPCS: 76642; 77065; G0279

== ENCOUNTER → 2024-03-16 11:02 | Outpatient (CLI) | payer MEDICARE, OTHER, SELFPAY ==
[2024-03-16 13:30] LABS: BUN Creatinine Ratio 22.5 (6-22); Blood Urea Nitrogen 18 mg/dL (7-17); Calcium 9.5 mg/dL (8.4-10.2); Carbon Dioxide 26 mmol/L (22-32); Chloride 91 mmol/L (98-107); Estimated Glomerular Filt Rate > 60 mL/min (>60); Glucose 103 mg/dL (80-110); HEMOLYSIS 19 (0-50); Potassium 5.1 mmol/L (3.4-5.1); Sodium 125 mmol/L (137-145)
== END ==
PROVIDERS: Family Provider Internal Medicine; PCP Internal Medicine; Referring Provider Internal Medicine; Visit Provider Internal Medicine
DX: I10 Essential (primary) hypertension (principal)
CPT/HCPCS: 36415; 80048

== ENCOUNTER → 2024-05-10 14:40 | Outpatient (CLI) | payer MEDICARE, OTHER, SELFPAY ==
[2024-05-10 16:29] LABS: BUN Creatinine Ratio 20.9 (6-22); Blood Urea Nitrogen 18 mg/dL (7-17); Calcium 9.5 mg/dL (8.4-10.2); Carbon Dioxide 27 mmol/L (22-32); Chloride 91 mmol/L (98-107); Estimated Glomerular Filt Rate > 60 mL/min (>60); Glucose 85 mg/dL (80-110); HEMOLYSIS < 15 (0-50); Potassium 4.7 mmol/L (3.4-5.1); Sodium 127 mmol/L (137-145)
== END ==
LOC: LAB 14:41
PROVIDERS: Family Provider Internal Medicine; PCP Internal Medicine; Referring Provider Internal Medicine; Visit Provider Internal Medicine
DX: I10 Essential (primary) hypertension (principal)
CPT/HCPCS: 36415; 80048

== ENCOUNTER 2024-06-13 13:00 | Outpatient (RCR) | payer MEDICARE, OTHER, SELFPAY ==
--- NOTE | 2024-04-17 16:30 | PT.OPPOC ---
Physical, Occupational & Speech Therapy At [facility] Current Diagnoses Pain in right shoulder (04/17/24) Cervicalgia (04/17/24) Low back pain, unspecified (04/17/24) Visit Care Team Role Provider Type Ulises Loyd MD Attending Provider Physician Family Provider Primary Care Provider Referring Provider Specialty: Internal Medicine Address: [address] [place] [address], [address], [facility] Email: [email or web address] Plan Of Care PT-OP-B Current Condition Start: 04/17/24 12:22 Freq: Status: Active Protocol: Document 04/17/24 14:42 SAK (Rec: 04/17/24 15:19 [facility] [id number]) Current Condition History of Current Condition Onset Date 6 months Current Complaints low back pain, chronic neck pain History of Current Condition gradual onset, worsening, no known reason. No imaging. Worse with prolonged sitting ( uses ice pack), alternates Tylenol and ADvil throughout the day and takes 1/2 ' s muscle relaxant to be able to sleep. Also reports lateral neck pain; chronic, also increased over the past 6months, using ice, heat, icy hot. No regular exercise except walking, states she found HEP from prior PT but reports made pain a little worse. Starts off sleeping on back, doesn't sleep on right side because makes neck pain worse, then goes to left side and stomache (head turned to left) Prior Treatments and Tests none Future Testing and Treatments Planned none Treatment Goals Patient/Caregiver Goals Return to prior level of function Prior Functional Status Baseline Function- ADL's Independent Baseline Function- Mobility Independent Baseline Function- Gait indep, no problem Current Functional Impairments (Reported) Functional Limitations- ADL's painful Functional Limitations- Mobility/Gait limited distance, painful PT-OP-T Assessment and Plan Start: 04/17/24 12:22 Freq: Status: Active Protocol: Document 04/17/24 14:42 SAK (Rec: 04/17/24 15:19 SAK [id number]) Physical Therapy Assessment Rehab Potential Rehabilitation Potential Good Evaluation Complexity Number of Personal Factors/Comorbidities 3 or More Number of Body Systems Impaired 3 Clinical Presentation at Evaluation Evolving Impairments Impairments Pain,Posture,Soft Tissue Mobility,Strength Other Concerns Barriers to Rehabilitation History of depression, lack of activity Goals Four 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 LTG Duration 06/17/24 Three Impairment Low back pain and neck pain 5/ 10 on pain scale, interrupts sleep Halfway Goal (LTG) Reduce pain by at least 50% with patient to report not being wakened due to pain. LTG Duration 06/17/24 Two Impairment impaired activity tolerance as indicated by NDI and Oswestry questionaires Short Term Goal (STG) Patient to demonstrate at least 25% improvement in NDI and Oswestry scores STG Duration 05/18/24 Halfway Goal (LTG) Patient to demonstrate at least 50% improvement in NDI and Oswestry scores and indication of improved function and activity tolerance LTG Duration 06/17/24 One Impairment pain Assessment Summary Assessment Patient presents to PT with function-limiting pain in right lateral neck and low back. No recent imaging. Using ice and heat, alternating Tylenol and Advil and taking 1/2 muscle relaxant at night to be able to sleep. Very prominant right SCM, poor postural alignment, muscle weakness, crossed syndrome. No current exercise program. Patient educated in importance of postural alignment with flexibility and strength across joints important for support and function. She was asked to do a self assessment of habitual positioning and movement of her body to try to identify contributing factors, and bring prior HEP for PT review and modfication for patient needs. Update written HEP. Modalities and manual therapy PRN. POC was discussed with patient and she was in agreement. Physical Therapy Plan Frequency and Duration Frequency of Treatment 2x/Week Duration of treatment (weeks) 8 Plan of Care Start Date 04/17/24 Plan of Care End Date 06/17/24 Therapeutic Interventions Therapeutic Interventions Home Exercise Program,Manual Therapy,Neuromuscular Re- education,Patient/Caregiver Education,Self-Care/Home Management,Soft Tissue Mobilization,Taping, Therapeutic Activities, Therapeutic Exercises Modalities Cold Pack/Ice Massage,Electric Stimulation,Hot Packs, Ultrasound Next Visit Focus/Plan Next Note Type Treatment Note Next Visit Plan REview prior HEP, modify, update. Postural correction exercises starting supine, progress toward wall as able. Modalities and manual therapy PRN. Plan of Care Dates Plan of Care Start Date 04/17/24 Plan of Care End Date 06/17/24 Electronically Signed by: Myra Rivera, PT 04/18/24 3545 If you are in agreement with this Plan of Care, please return a signed and dated copy. I have reviewed this Plan of Care and certify that the skilled therapy services above are required to meet the patient?s needs. Physician Signature Date Printed Name and Credentials Clinical Instructor Signature Printed Name and Credentials
--- NOTE | 2024-04-17 16:30 | PT.OIE ---
Current Diagnoses Pain in right shoulder (04/17/24) Cervicalgia (04/17/24) Low back pain, unspecified (04/17/24) Past Medical History (Last Reviewed 03/11/24 @ 15:20 by Ulises Loyd MD) Anxiety (~2001) Asthma Basal cell carcinoma Bilateral medial epicondylitis of elbow joint (2004) Cataract, right eye (2013) Cervical spine pain (~2000) Chronic back pain (2004) Chronic headaches DVT (deep venous thrombosis) (2008) Essential hypertension Essential tremor Fibromyalgia (~2000) Foot pain, left (~2009) GERD (gastroesophageal reflux disease) (~2004) Major depressive disorder in partial remission Recurrent sinusitis (~1999) Right hip pain (2005) Shoulder pain Sleep apnea (~1999) Past Surgical History (Last Reviewed 03/11/24 @ 15:20 by Ulises Loyd MD) Anesthesia History of basal cell carcinoma (BCC) excision (06/14/11) History of gynecologic surgery History of open reduction and internal fixation (ORIF) procedure (09/30/15) History of right cataract surgery (2013) Visit Care Team Role Provider Type Ulises Loyd MD Attending Provider Physician Family Provider Primary Care Provider Referring Provider Specialty: Internal Medicine Address: [address] [place] [address], [address], [facility] Email: [email or web address] Physical Therapy Initial Evaluation PT-OP-A Visit Information Start: 04/17/24 12:22 Freq: Status: Active Protocol: Document 04/17/24 14:42 URBANO (Rec: 04/17/24 15:19 [facility] [id number]) Out-Patient Physical Therapy Visit Information Visit Information Visit Type Initial Evaluation Visit Start Time 14:35 Visit Stop Time 15:15 Visit Number 1 Evaluation Information Evaluation Date 04/17/24 Precautions Precautions PMH: Basal cell carcinoma Essential hypertension Essential tremor Asthma Bilateral medial epicondylitis of elbow joint (2004) Sleep apnea (~2000) Anxiety (~2002) Chronic headaches Right hip pain (2006) Cervical spine pain (~2000) Shoulder pain Foot pain, left (~2009) Fibromyalgia (~2000) Chronic back pain (2003) Recurrent sinusitis (~1999) Cataract, right eye (2013) GERD (gastroesophageal reflux disease) (~2004) DVT (deep venous thrombosis) ( 2008) Major depressive disorder in partial remission Surgical History (Reviewed @ 15:20 by Ulises Loyd MD) History of right cataract surgery (2013) Anesthesia History of gynecologic surgery History of basal cell carcinoma (BCC) excision (02/24) History of open reduction and internal fixation (ORIF) procedure (09/30/15) PT-OP-B Current Condition Start: 04/17/24 12:22 Freq: Status: Active Protocol: Document 04/17/24 14:42 SAK (Rec: 04/17/24 15:19 [facility] [id number]) Current Condition History of Current Condition Onset Date 6 months Current Complaints low back pain, chronic neck pain History of Current Condition gradual onset, worsening, no known reason. No imaging. Worse with prolonged sitting ( uses ice pack), alternates Tylenol and ADvil throughout the day and takes 1/2 ' s muscle relaxant to be able to sleep. Also reports lateral neck pain; chronic, also increased over the past 6months, using ice, heat, icy hot. No regular exercise except walking, states she found HEP from prior PT but reports made pain a little worse. Starts off sleeping on back, doesn't sleep on right side because makes neck pain worse, then goes to left side and stomache (head turned to left) Prior Treatments and Tests none Future Testing and Treatments Planned none Treatment Goals Patient/Caregiver Goals Return to prior level of function Prior Functional Status Baseline Function- ADL's Independent Baseline Function- Mobility Independent Baseline Function- Gait indep, no problem Current Functional Impairments (Reported) Functional Limitations- ADL's painful Functional Limitations- Mobility/Gait limited distance, painful PT-OP-C Subjective Start: 04/17/24 12:22 Freq: Status: Active Protocol: Document 04/17/24 14:42 SAK (Rec: 04/17/24 15:19 [facility] [id number]) Patient Questionnaires Neck Disability Index NDI Score pt did not complete 2nd page Oswestry Low Back Index Oswestry Score pt did not complete 2nd page Quick Dash- Upper Extremity Quick Dash UE Score 50 OP-PT Pain Assessment Location right sided low back pain Pain Aggravating Factors Position,Sitting Pain Alleviating Factors Cold,Medication PT-OP-H Neuro Start: 04/17/24 12:22 Freq: Status: Active Protocol: Document 04/17/24 14:42 SAK (Rec: 04/18/24 12:11 [facility] [id number]) Sensation Evaluation Gross Sensation Gross Sensation WNL PT-OP-J Posture/Palpation/Skin Start: 04/17/24 12:22 Freq: Status: Active Protocol: Document 04/17/24 14:42 [facility] (Rec: 04/18/24 12:11 [facility] [id number]) Posture Evaluation Position Standing Head/C-Spine Posture Forward Head T-Spine Posture Increased Kyphosis L-Spine Posture Flattened Shoulder Posture (L) Rounded,(R) Rounded Scapula Posture (L) Protracted,(R) Protracted Arm Posture (L) Internally Rotated,(R) Internally Rotated Pelvis Posture Posterior Tilted Weight Distribution Weight Shifted Left Palpation Assessment Location lumbar paraspinals Palpation Findings Soft Tissue Tightness, Tenderness c/s Palpation Location right SCM, UT, LS Palpation Findings Soft Tissue Tightness, Tenderness PT-OP-K Range of Motion Start: 04/17/24 12:22 Freq: Status: Active Protocol: Document 04/17/24 14:42 [facility] (Rec: 04/17/24 15:19 [facility] [id number]) Cervical Spine Range of Motion Cervical Spine Active Rotation Left 45 Rotation Right 60 Lateral Flexion Left 10 Lateral Flexion Right 20 ROM Limitations Soft Tissue Tightness,Pain Comments pain left rotation Lumbar Spine Range of Motion Lumbar Spine Active Flexion 45 Extension 10 Rotation Left 10 Rotation Right 20 Lateral Flexion Left 30 Lateral Flexion Right 35 ROM Limitations Soft Tissue Tightness,Pain Shoulder Goniometric Range of Motion Shoulder marti Shoulder ROM WFL Yes Hip Goniometric Range of Motion Hip Right Hip ROM WFL No Flexion w/Knee Flexed 120 Straight Leg Raise 50 Extension 0 Abduction 30 Internal Rotation 10 External Rotation 35 left Hip ROM WFL No Flexion w/Knee Flexed 120 Straight Leg Raise 55 Extension 0 Abduction 35 Internal Rotation 15 External Rotation 35 Hip ROM Limitations Hip ROM Limitations Soft Tissue Tightness Knee Goniometric Range of Motion Knee marti Knee ROM WFL Yes PT-OP-Q Treatments Start: 04/17/24 12:22 Freq: Status: Active Protocol: Document 04/17/24 14:42 [facility] (Rec: 04/17/24 15:19 [facility] [id number]) Self-Care/Home Management Treatment Education Patient Education Body Mechanics,Posture Other Education bed positioning; pillow between knees, towel roll at side, pillow supporting head Importance of postural alignment, examine habitual positioning and movement of body to look for causes of pain. 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 LTG Duration 06/17/24 Three Impairment Low back pain and neck pain 5/ 10 on pain scale, interrupts sleep Cotton Chopper Goal (LTG) Reduce pain by at least 50% with patient to report not being wakened due to pain. LTG Duration 06/17/24 Two Impairment impaired activity tolerance as indicated by NDI and Oswestry questionaires Short Term Goal (STG) Patient to demonstrate at least 25% improvement in NDI and Oswestry scores STG Duration 05/18/24 [facility] Goal (LTG) Patient to demonstrate at least 50% improvement in NDI and Oswestry scores and indication of improved function and activity tolerance LTG Duration 06/17/24 One Impairment pain Assessment Summary Assessment Patient presents to PT with function-limiting pain in right lateral neck and low back. No recent imaging. Using ice and heat, alternating Tylenol and Advil and taking 1/2 muscle relaxant at night to be able to sleep. Very prominant right SCM, poor postural alignment, muscle weakness, crossed syndrome. No current exercise program. Patient educated in importance of postural alignment with flexibility and strength across joints important for support and function. She was asked to do a self assessment of habitual positioning and movement of her body to try to identify contributing factors, and bring prior HEP for PT review and modfication for patient needs. Update written HEP. Modalities and manual therapy PRN. POC was discussed with patient and she was in agreement. Physical Therapy Plan Frequency and Duration Frequency of Treatment 2x/Week Duration of treatment (weeks) 8 Plan of Care Start Date 04/17/24 Plan of Care End Date 06/17/24 Therapeutic Interventions Therapeutic Interventions Home Exercise Program,Manual Therapy,Neuromuscular Re- education,Patient/Caregiver Education,Self-Care/Home Management,Soft Tissue Mobilization,Taping, Therapeutic Activities, Therapeutic Exercises Modalities Cold Pack/Ice Massage,Electric Stimulation,Hot Packs, Ultrasound Next Visit Focus/Plan Next Note Type Treatment Note Next Visit Plan REview prior HEP, modify, update. Postural correction exercises starting supine, progress toward wall as able. Modalities and manual therapy PRN.
--- NOTE | 2024-04-19 16:45 | PT.OTN ---
Physical Therapy Treatment Note PT-OP-A Visit Information Start: 04/17/24 12:22 Freq: Status: Active Protocol: Document 04/19/24 13:05 NB (Rec: 04/19/24 14:36 [facility] [id number]) Out-Patient Physical Therapy Visit Information Visit Information Visit Type Treatment Note Visit Start Time 13:05 Visit Stop Time 13:47 Visit Number 2 Number of RECRUITMENT COORDINATOR Visits 1 Evaluation Information Evaluation Date 04/17/24 Precautions Precautions PMH: Basal cell carcinoma Essential hypertension Essential tremor Asthma Bilateral medial epicondylitis of elbow joint (2004) Sleep apnea (~1999) Anxiety (~2001) Chronic headaches Right hip pain (2005) Cervical spine pain (~1999) Shoulder pain Foot pain, left (~2009) Fibromyalgia (~1999) Chronic back pain (2003) Recurrent sinusitis (~1999) Cataract, right eye (2013) GERD (gastroesophageal reflux disease) (~2004) DVT (deep venous thrombosis) ( 2008) Major depressive disorder in partial remission Surgical History (Reviewed @ 15:20 by Ulises Loyd MD) History of right cataract surgery (2013) Anesthesia History of gynecologic surgery History of basal cell carcinoma (BCC) excision (02/24) History of open reduction and internal fixation (ORIF) procedure (09/30/15) PT-OP-C Subjective Start: 04/17/24 12:22 Freq: Status: Active Protocol: Document 04/19/24 13:05 NB (Rec: 04/19/24 14:36 [facility] [id number]) OP-PT Subjective Patient Comments Patient Comments Marjorie noticed she had a lot of computer projects this week and spent two hours on the computer last night. She's been sleeping on her L side and it's going okay. R neck pain is 3/10 and low back pain 4/10; and both are kind of constant. I sit with an ice pack on my low back all of the time. PT-OP-H Neuro Start: 04/17/24 12:22 Freq: Status: Active Protocol: Document 04/17/24 14:42 SAK (Rec: 04/18/24 12:11 SAK [id number]) Sensation Evaluation Gross Sensation Gross Sensation WNL PT-OP-J Posture/Palpation/Skin Start: 04/17/24 12:22 Freq: Status: Active Protocol: Document 04/17/24 14:42 SAK (Rec: 04/18/24 12:11 [facility] [id number]) Posture Evaluation Position Standing Head/C-Spine Posture Forward Head T-Spine Posture Increased Kyphosis L-Spine Posture Flattened Shoulder Posture (L) Rounded,(R) Rounded Scapula Posture (L) Protracted,(R) Protracted Arm Posture (L) Internally Rotated,(R) Internally Rotated Pelvis Posture Posterior Tilted Weight Distribution Weight Shifted Left Palpation Assessment Location lumbar paraspinals Palpation Findings Soft Tissue Tightness, Tenderness c/s Palpation Location right SCM, UT, LS Palpation Findings Soft Tissue Tightness, Tenderness PT-OP-K Range of Motion Start: 04/17/24 12:22 Freq: Status: Active Protocol: Document 04/17/24 14:42 [facility] (Rec: 04/17/24 15:19 [facility] [id number]) Cervical Spine Range of Motion Cervical Spine Active Rotation Left 45 Rotation Right 60 Lateral Flexion Left 10 Lateral Flexion Right 20 ROM Limitations Soft Tissue Tightness,Pain Comments pain left rotation Lumbar Spine Range of Motion Lumbar Spine Active Flexion 45 Extension 10 Rotation Left 10 Rotation Right 20 Lateral Flexion Left 30 Lateral Flexion Right 35 ROM Limitations Soft Tissue Tightness,Pain Shoulder Goniometric Range of Motion Shoulder marti Shoulder ROM WFL Yes Hip Goniometric Range of Motion Hip Right Hip ROM WFL No Flexion w/Knee Flexed 120 Straight Leg Raise 50 Extension 0 Abduction 30 Internal Rotation 10 External Rotation 35 left Hip ROM WFL No Flexion w/Knee Flexed 120 Straight Leg Raise 55 Extension 0 Abduction 35 Internal Rotation 15 External Rotation 35 Hip ROM Limitations Hip ROM Limitations Soft Tissue Tightness Knee Goniometric Range of Motion Knee marti Knee ROM WFL Yes PT-OP-Q Treatments Start: 04/17/24 12:22 Freq: Status: Active Protocol: Document 04/19/24 13:05 NB (Rec: 04/19/24 14:36 [facility] [id number]) Therapeutic Exercises Supine Exercises pec stretch Supine Exercise Name Goal post Side bilateral Comments cues for scapular setting scapular retractions Supine Exercise Name elbows 90 deg, gentle press into mat Side bilateral Reps/Minutes 10 x 5 hold Comments cues for scapular setting and chin tuck PPT Supine Exercise Name 1. PPT 2. w/ LTR Reps/Minutes 2x10 Comments tactile cues, LBP improves. R Lumbar pain w/ L LTR cervical elongation Reps/Minutes x10 Comments cues to avoid cervical nod chin retraction Supine Exercise Name chin tuck Equipment Used on pillow Reps/Minutes 10 x 5 hold Comments painfree. added to HEP Manual Therapy Treatment Consent Patient gave verbal consent for manual Yes treatment Soft Tissue Mobilization shoulder Body Location R>L UT, LS, B pec Mobilization Type Rolling,Strumming,Sustained Pressure Intensity/Depth superficial, moderate Body Position Hooklying Comments gentle manual pin and stretch to R UT and LS. cervical Body Location R Scalenes, SCM, B paraspinals , SOR Mobilization Type Rolling,Strumming,Sustained Pressure,Other Intensity/Depth superficial, moderate Body Position Hooklying Comments R SCM and Scalenes palpable tension improves. Self-Care/Home Management Treatment Education Patient Education Body Mechanics,Pain Management ,Posture Other Education -Sitting Ergonomics handout reviewed and given to pt with emphasis on computer use and tall sitting posture. -Edu to pt re: TrA anatomy and physiology w/ visual aids and interrelationship w/ diaphragm, pelvic floor, and breathwork. 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 LTG Duration 06/17/24 Three Impairment Low back pain and neck pain 5/ 10 on pain scale, interrupts sleep Distribution Center Assistant Goal (LTG) Reduce pain by at least 50% with patient to report not being wakened due to pain. LTG Duration 06/17/24 Two Impairment impaired activity tolerance as indicated by NDI and Oswestry questionaires Short Term Goal (STG) Patient to demonstrate at least 25% improvement in NDI and Oswestry scores STG Duration 05/18/24 [facility] Goal (LTG) Patient to demonstrate at least 50% improvement in NDI and Oswestry scores and indication of improved function and activity tolerance LTG Duration 06/17/24 One Impairment pain Assessment Summary Assessment Marjorie presents with R neck pain 3/10 which pt reports end of session may be better and is looser and low back pain 4/10 which is unchanged. Treatment focus on edu to pt re: sitting posture and ergonomics at computer ( handout given) and Transverse abdominis m. anatomy and physiology w/ visual aids. Physical Therapy Plan Frequency and Duration Frequency of Treatment 2x/Week Duration of treatment (weeks) 8 Plan of Care Start Date 04/17/24 Plan of Care End Date 06/17/24 Therapeutic Interventions Therapeutic Interventions Home Exercise Program,Manual Therapy,Neuromuscular Re- education,Patient/Caregiver Education,Self-Care/Home Management,Soft Tissue Mobilization,Taping, Therapeutic Activities, Therapeutic Exercises Modalities Cold Pack/Ice Massage,Electric Stimulation,Hot Packs, Ultrasound Next Visit Focus/Plan Next Note Type Treatment Note Next Visit Plan Check ergonomics at computer. Review HEP: supine chin retractions, PPT. Consider Desk stretch HO, wall posture. POC: REview prior HEP, modify, update. Postural correction exercises starting supine, progress toward wall as able. Modalities and manual therapy PRN.
--- NOTE | 2024-04-25 17:04 | PT.OTN ---
Current Diagnoses Pain in right shoulder (04/25/24) Cervicalgia (04/25/24) Low back pain, unspecified (04/25/24) Physical Therapy Treatment Note PT-OP-A Visit Information Start: 04/17/24 12:22 Freq: Status: Active Protocol: Document 04/25/24 15:22 [facility] (Rec: 04/25/24 16:13 [facility] [id number]) Out-Patient Physical Therapy Visit Information Visit Information Visit Type Treatment Note Visit Start Time 15:20 Visit Stop Time 16:05 Visit Number 3 Number of CLERICAL SECRETARY Visits 0 Evaluation Information Evaluation Date 04/17/24 Precautions Precautions PMH: Basal cell carcinoma Essential hypertension Essential tremor Asthma Bilateral medial epicondylitis of elbow joint (2004) Sleep apnea (~1999) Anxiety (~2001) Chronic headaches Right hip pain (2005) Cervical spine pain (~1999) Shoulder pain Foot pain, left (~2009) Fibromyalgia (~1999) Chronic back pain (2003) Recurrent sinusitis (~1999) Cataract, right eye (2013) GERD (gastroesophageal reflux disease) (~2004) DVT (deep venous thrombosis) ( 2008) Major depressive disorder in partial remission Surgical History (Reviewed @ 15:20 by Ulises Loyd MD) History of right cataract surgery (2013) Anesthesia History of gynecologic surgery History of basal cell carcinoma (BCC) excision (02/24) History of open reduction and internal fixation (ORIF) procedure (09/30/15) PT-OP-B Current Condition Start: 04/17/24 12:22 Freq: Status: Active Protocol: Document 04/25/24 15:22 [facility] (Rec: 04/25/24 16:13 [facility] [id number]) Current Condition History of Current Condition Onset Date 6 months Current Complaints low back pain, chronic neck pain History of Current Condition gradual onset, worsening, no known reason. No imaging. Worse with prolonged sitting ( uses ice pack), alternates Tylenol and ADvil throughout the day and takes 1/2 ' s muscle relaxant to be able to sleep. Also reports lateral neck pain; chronic, also increased over the past 6months, using ice, heat, icy hot. No regular exercise except walking, states she found HEP from prior PT but reports made pain a little worse. Starts off sleeping on back, doesn't sleep on right side because makes neck pain worse, then goes to left side and stomache (head turned to left) Prior Treatments and Tests none Future Testing and Treatments Planned none PT-OP-C Subjective Start: 04/17/24 12:22 Freq: Status: Active Protocol: Document 04/25/24 15:22 [facility] (Rec: 04/25/24 16:13 [facility] [id number]) OP-PT Subjective Patient Comments Patient Comments REports neck maybe a little better, was better after PT , then worse, now maybe a little better. Work station was set up pretty well jlust raised monitor. Low back slightly better but also doing the exercises made right buttock a little tighter. Neck not keeping her up at night as much. PT-OP-H Neuro Start: 04/17/24 12:22 Freq: Status: Active Protocol: Document 04/17/24 14:42 [facility] (Rec: 04/18/24 12:11 [facility] [id number]) Sensation Evaluation Gross Sensation Gross Sensation WNL PT-OP-J Posture/Palpation/Skin Start: 04/17/24 12:22 Freq: Status: Active Protocol: Document 04/17/24 14:42 [facility] (Rec: 04/18/24 12:11 [facility] [id number]) Posture Evaluation Position Standing Head/C-Spine Posture Forward Head T-Spine Posture Increased Kyphosis L-Spine Posture Flattened Shoulder Posture (L) Rounded,(R) Rounded Scapula Posture (L) Protracted,(R) Protracted Arm Posture (L) Internally Rotated,(R) Internally Rotated Pelvis Posture Posterior Tilted Weight Distribution Weight Shifted Left Palpation Assessment Location lumbar paraspinals Palpation Findings Soft Tissue Tightness, Tenderness c/s Palpation Location right SCM, UT, LS Palpation Findings Soft Tissue Tightness, Tenderness PT-OP-K Range of Motion Start: 04/17/24 12:22 Freq: Status: Active Protocol: Document 04/17/24 14:42 [facility] (Rec: 04/17/24 15:19 [facility] [id number]) Cervical Spine Range of Motion Cervical Spine Active Rotation Left 45 Rotation Right 60 Lateral Flexion Left 10 Lateral Flexion Right 20 ROM Limitations Soft Tissue Tightness,Pain Comments pain left rotation Lumbar Spine Range of Motion Lumbar Spine Active Flexion 45 Extension 10 Rotation Left 10 Rotation Right 20 Lateral Flexion Left 30 Lateral Flexion Right 35 ROM Limitations Soft Tissue Tightness,Pain Shoulder Goniometric Range of Motion Shoulder marti Shoulder ROM WFL Yes Hip Goniometric Range of Motion Hip Right Hip ROM WFL No Flexion w/Knee Flexed 120 Straight Leg Raise 50 Extension 0 Abduction 30 Internal Rotation 10 External Rotation 35 left Hip ROM WFL No Flexion w/Knee Flexed 120 Straight Leg Raise 55 Extension 0 Abduction 35 Internal Rotation 15 External Rotation 35 Hip ROM Limitations Hip ROM Limitations Soft Tissue Tightness Knee Goniometric Range of Motion Knee marti Knee ROM WFL Yes PT-OP-Q Treatments Start: 04/17/24 12:22 Freq: Status: Active Protocol: Document 04/25/24 15:22 [facility]AK (Rec: 04/25/24 16:13 [facility] [id number]) Therapeutic Exercises Supine Exercises SLR Reps/Minutes 5x Comments cues for core activation LTR Reps/Minutes 3x Comments cues for core activation, recommend march, bug, leg lowering first pec stretch Supine Exercise Name Goal post Side bilateral Reps/Minutes 5x Comments cues for scapular setting scapular retractions Supine Exercise Name elbows 90 deg, gentle press into mat Side bilateral Reps/Minutes 10 x 5 hold Comments cues for scapular setting and chin tuck PPT Supine Exercise Name 1. PPT 2. w/ LTR Reps/Minutes 2x10 Comments tactile cues, LBP improves. denied pain today chin retraction Supine Exercise Name chin tuck Equipment Used on pillow Reps/Minutes 10 x 5 hold Comments painfree. added to HEP Sidelying Exercises clamshell Reps/Minutes 10x5 Comments cues for core activation, no rolling back open book Sidelying Exercise Name HEP Manual Therapy Treatment Soft Tissue Mobilization right lumbar spine, hip Body Location piriformis, glut, paraspinals, QL Mobilization Type Myofascial Release,Rolling, Strumming,Sustained Pressure Body Position sidelying. shoulder Body Location R>L UT, LS, B pec Mobilization Type Rolling,Strumming,Sustained Pressure Intensity/Depth superficial, moderate Body Position Hooklying Comments gentle manual pin and stretch to R UT and LS. cervical Body Location R Scalenes, SCM, B paraspinals , SOR Mobilization Type Rolling,Strumming,Sustained Pressure,Other Intensity/Depth superficial, moderate Body Position Hooklying Comments R SCM and Scalenes palpable tension improves. Self-Care/Home Management Treatment Education Patient Education Body Mechanics,Pain Management ,Posture PT-OP-T Assessment and Plan Start: 04/17/24 12:22 Freq: Status: Active Protocol: Document 04/25/24 15:22 [facility]AK (Rec: 04/25/24 16:13 [facility] [id number]) Physical Therapy Assessment Goals Four Impairment posture dysfunction with crossed syndrome of tight and weak musculature Short Term Goal (STG) Patient to be instructed in neutral posture and instructed in postural correction exercises STG Duration 05/18/24 Drier Take Off Tender Goal (LTG) Patient to be independent and compliant with HEP and demonstrate improved postural alignment statically and dynamically with functional activities and improved ROM to WNL and strength to at least 4+/5. LTG Duration 06/17/24 Three Impairment Low back pain and neck pain 5/ 10 on pain scale, interrupts sleep Senior Care Goal (LTG) Reduce pain by at least 50% with patient to report not being wakened due to pain. LTG Duration 06/17/24 Two Impairment impaired activity tolerance as indicated by NDI and Oswestry questionaires Short Term Goal (STG) Patient to demonstrate at least 25% improvement in NDI and Oswestry scores STG Duration 05/18/24 Drier Take Off Tender Goal (LTG) Patient to demonstrate at least 50% improvement in NDI and Oswestry scores and indication of improved function and activity tolerance LTG Duration 06/17/24 One Impairment pain Assessment Summary Assessment Patient reporting some improvement in neck pain, not waking as often due to pain, possibly a little improvement with low back. Forgot to try using towel at waist for bed positioning; issued HO reminder. Patient reports high fatigue level often prevents her from doing very much. Physical Therapy Plan Frequency and Duration Frequency of Treatment 2x/Week Duration of treatment (weeks) 8 Plan of Care Start Date 04/17/24 Plan of Care End Date 06/17/24 Therapeutic Interventions Therapeutic Interventions Home Exercise Program,Manual Therapy,Neuromuscular Re- education,Patient/Caregiver Education,Self-Care/Home Management,Soft Tissue Mobilization,Taping, Therapeutic Activities, Therapeutic Exercises Modalities Cold Pack/Ice Massage,Electric Stimulation,Hot Packs, Ultrasound Next Visit Focus/Plan Next Note Type Treatment Note Next Visit Plan Wall posture as able, continue postural correction supine, recumbant elliptical, issue desk stretch HO. Trial row, sh ext with TB
--- NOTE | 2024-05-01 16:16 | PT.OTN ---
Current Diagnoses Pain in right shoulder (05/01/24) Cervicalgia (05/01/24) Low back pain, unspecified (05/01/24) Physical Therapy Treatment Note PT-OP-A Visit Information Start: 04/17/24 12:22 Freq: Status: Active Protocol: Document 05/01/24 15:20 AB (Rec: 05/01/24 16:16 AB [id number]) Out-Patient Physical Therapy Visit Information Visit Information Visit Type Treatment Note Visit Start Time 15:20 Visit Stop Time 16:04 Visit Number 4 Number of LEVEL VIAL GRINDER Visits 1 Evaluation Information Evaluation Date 04/17/24 Precautions Precautions PMH: Basal cell carcinoma Essential hypertension Essential tremor Asthma Bilateral medial epicondylitis of elbow joint (2004) Sleep apnea (~1999) Anxiety (~2001) Chronic headaches Right hip pain (2005) Cervical spine pain (~1999) Shoulder pain Foot pain, left (~2009) Fibromyalgia (~1999) Chronic back pain (2003) Recurrent sinusitis (~1999) Cataract, right eye (2013) GERD (gastroesophageal reflux disease) (~2004) DVT (deep venous thrombosis) ( 2008) Major depressive disorder in partial remission Surgical History (Reviewed @ 15:20 by Ulises Loyd MD) History of right cataract surgery (2013) Anesthesia History of gynecologic surgery History of basal cell carcinoma (BCC) excision (02/24) History of open reduction and internal fixation (ORIF) procedure (09/30/15) PT-OP-B Current Condition Start: 04/17/24 12:22 Freq: Status: Active Protocol: Document 04/25/24 15:22 [facility]AK (Rec: 04/25/24 16:13 [facility]AK [id number]) Current Condition History of Current Condition Onset Date 6 months Current Complaints low back pain, chronic neck pain History of Current Condition gradual onset, worsening, no known reason. No imaging. Worse with prolonged sitting ( uses ice pack), alternates Tylenol and ADvil throughout the day and takes 1/2 ' s muscle relaxant to be able to sleep. Also reports lateral neck pain; chronic, also increased over the past 6months, using ice, heat, icy hot. No regular exercise except walking, states she found HEP from prior PT but reports made pain a little worse. Starts off sleeping on back, doesn't sleep on right side because makes neck pain worse, then goes to left side and stomache (head turned to left) Prior Treatments and Tests none Future Testing and Treatments Planned none PT-OP-C Subjective Start: 04/17/24 12:22 Freq: Status: Active Protocol: Document 05/01/24 15:20 AB (Rec: 05/01/24 16:16 AB [id number]) OP-PT Subjective Patient Comments Patient Comments Patient reports the neck is not keeping her up at night but is still stiff. Patient reports low back is slightly better. Patient rates low back pain 6/10 start of session. PT-OP-H Neuro Start: 04/17/24 12:22 Freq: Status: Active Protocol: Document 04/17/24 14:42 SAK (Rec: 04/18/24 12:11 SAK [id number]) Sensation Evaluation Gross Sensation Gross Sensation WNL PT-OP-J Posture/Palpation/Skin Start: 04/17/24 12:22 Freq: Status: Active Protocol: Document 04/17/24 14:42 [facility]AK (Rec: 04/18/24 12:11 [facility]AK [id number]) Posture Evaluation Position Standing Head/C-Spine Posture Forward Head T-Spine Posture Increased Kyphosis L-Spine Posture Flattened Shoulder Posture (L) Rounded,(R) Rounded Scapula Posture (L) Protracted,(R) Protracted Arm Posture (L) Internally Rotated,(R) Internally Rotated Pelvis Posture Posterior Tilted Weight Distribution Weight Shifted Left Palpation Assessment Location lumbar paraspinals Palpation Findings Soft Tissue Tightness, Tenderness c/s Palpation Location right SCM, UT, LS Palpation Findings Soft Tissue Tightness, Tenderness PT-OP-K Range of Motion Start: 04/17/24 12:22 Freq: Status: Active Protocol: Document 04/17/24 14:42 SAK (Rec: 04/17/24 15:19 SAK [id number]) Cervical Spine Range of Motion Cervical Spine Active Rotation Left 45 Rotation Right 60 Lateral Flexion Left 10 Lateral Flexion Right 20 ROM Limitations Soft Tissue Tightness,Pain Comments pain left rotation Lumbar Spine Range of Motion Lumbar Spine Active Flexion 45 Extension 10 Rotation Left 10 Rotation Right 20 Lateral Flexion Left 30 Lateral Flexion Right 35 ROM Limitations Soft Tissue Tightness,Pain Shoulder Goniometric Range of Motion Shoulder marti Shoulder ROM WFL Yes Hip Goniometric Range of Motion Hip Right Hip ROM WFL No Flexion w/Knee Flexed 120 Straight Leg Raise 50 Extension 0 Abduction 30 Internal Rotation 10 External Rotation 35 left Hip ROM WFL No Flexion w/Knee Flexed 120 Straight Leg Raise 55 Extension 0 Abduction 35 Internal Rotation 15 External Rotation 35 Hip ROM Limitations Hip ROM Limitations Soft Tissue Tightness Knee Goniometric Range of Motion Knee marti Knee ROM WFL Yes PT-OP-Q Treatments Start: 04/17/24 12:22 Freq: Status: Active Protocol: Document 05/01/24 15:20 AB (Rec: 05/01/24 16:16 AB [id number]) Therapeutic Exercises Supine Exercises hip stretches Supine Exercise Name 1. piriformis 2. figure 4 Reps/Minutes 15 to 30 sec X 2 each LE each stretch Comments verbal cues CSrotation on occ float Side bilateral Reps/Minutes 3 min to perform slowly in pain free range scapular retractions Supine Exercise Name back to wall this session. Reps/Minutes X 5 sec chin retraction Supine Exercise Name chin tuck Equipment Used on pillow Reps/Minutes 5 sec X 5 sec Comments back to wall with pillow this session Prone Exercises CS rotation in counter plank position Side bilateral Reps/Minutes X10 Comments verbal and visual cues Therapeutic Activity Therapeutic Activity posture check Comments Verbal cues for posture 5-10 % chin tuck 10% scap squeeze then hold the position when stepping away from the wall Performed X 2 Manual Therapy Treatment Consent Patient gave verbal consent for manual Yes treatment Soft Tissue Mobilization cervical Body Location R Scalenes, B paraspinals, Mobilization Type Cross-Friction,Rolling, Sustained Pressure Intensity/Depth Moderate Body Position Sitting PT-OP-T Assessment and Plan Start: 04/17/24 12:22 Freq: Status: Active Protocol: Document 05/01/24 15:20 AB (Rec: 05/01/24 16:16 AB [id number]) Physical Therapy Assessment Goals Four Impairment posture dysfunction with crossed syndrome of tight and weak musculature Short Term Goal (STG) Patient to be instructed in neutral posture and instructed in postural correction exercises STG Duration 05/18/24 Custodial Goal (LTG) Patient to be independent and compliant with HEP and demonstrate improved postural alignment statically and dynamically with functional activities and improved ROM to WNL and strength to at least 4+/5. LTG Duration 06/17/24 Three Impairment Low back pain and neck pain 5/ 10 on pain scale, interrupts sleep Custodial Goal (LTG) Reduce pain by at least 50% with patient to report not being wakened due to pain. LTG Duration 06/17/24 Two Impairment impaired activity tolerance as indicated by NDI and Oswestry questionaires Short Term Goal (STG) Patient to demonstrate at least 25% improvement in NDI and Oswestry scores STG Duration 05/18/24 Harp Action Assembler Goal (LTG) Patient to demonstrate at least 50% improvement in NDI and Oswestry scores and indication of improved function and activity tolerance LTG Duration 06/17/24 One Impairment pain Assessment Summary Assessment Marjorie rates back pain 05/23 end of session, ambulating out of session without device. Decreased patty to piriformis and figure 4 stretch, reports feeling back discomfort as well as stretch in gluteals. Physical Therapy Plan Frequency and Duration Frequency of Treatment 2x/Week Duration of treatment (weeks) 8 Plan of Care Start Date 04/17/24 Plan of Care End Date 06/17/24 Next Visit Focus/Plan Next Note Type Treatment Note Next Visit Plan Wall posture as able, continue postural correction supine, recumbant elliptical, issue desk stretch HO. Trial sean, rodo ext with TB
--- NOTE | 2024-05-01 16:16 | PT.OTN ---
Current Diagnoses Pain in right shoulder (05/01/24) Cervicalgia (05/01/24) Low back pain, unspecified (05/01/24) Physical Therapy Treatment Note PT-OP-A Visit Information Start: 04/17/24 12:22 Freq: Status: Active Protocol: Document 05/01/24 15:20 AB (Rec: 05/01/24 16:16 AB [id number]) Out-Patient Physical Therapy Visit Information Visit Information Visit Type Treatment Note Visit Start Time 15:20 Visit Stop Time 16:04 Visit Number 4 Number of DIGITAL PRODUCER Visits 1 Evaluation Information Evaluation Date 04/17/24 Precautions Precautions PMH: Basal cell carcinoma Essential hypertension Essential tremor Asthma Bilateral medial epicondylitis of elbow joint (2004) Sleep apnea (~1999) Anxiety (~2001) Chronic headaches Right hip pain (2005) Cervical spine pain (~1999) Shoulder pain Foot pain, left (~2009) Fibromyalgia (~1999) Chronic back pain (2003) Recurrent sinusitis (~1999) Cataract, right eye (2013) GERD (gastroesophageal reflux disease) (~2004) DVT (deep venous thrombosis) ( 2008) Major depressive disorder in partial remission Surgical History (Reviewed @ 15:20 by Ulises Loyd MD) History of right cataract surgery (2013) Anesthesia History of gynecologic surgery History of basal cell carcinoma (BCC) excision (02/24) History of open reduction and internal fixation (ORIF) procedure (09/30/15) PT-OP-B Current Condition Start: 04/17/24 12:22 Freq: Status: Active Protocol: Document 04/25/24 15:22 SAK (Rec: 04/25/24 16:13 SAK [id number]) Current Condition History of Current Condition Onset Date 6 months Current Complaints low back pain, chronic neck pain History of Current Condition gradual onset, worsening, no known reason. No imaging. Worse with prolonged sitting ( uses ice pack), alternates Tylenol and ADvil throughout the day and takes 1/2 ' s muscle relaxant to be able to sleep. Also reports lateral neck pain; chronic, also increased over the past 6months, using ice, heat, icy hot. No regular exercise except walking, states she found HEP from prior PT but reports made pain a little worse. Starts off sleeping on back, doesn't sleep on right side because makes neck pain worse, then goes to left side and stomache (head turned to left) Prior Treatments and Tests none Future Testing and Treatments Planned none PT-OP-C Subjective Start: 04/17/24 12:22 Freq: Status: Active Protocol: Document 05/01/24 15:20 AB (Rec: 05/01/24 16:16 AB [id number]) OP-PT Subjective Patient Comments Patient Comments Patient reports the neck is not keeping her up at night but is still stiff. Patient reports low back is slightly better. Patient rates low back pain 6/10 start of session. PT-OP-H Neuro Start: 04/17/24 12:22 Freq: Status: Active Protocol: Document 04/17/24 14:42 SAK (Rec: 04/18/24 12:11 SAK [id number]) Sensation Evaluation Gross Sensation Gross Sensation WNL PT-OP-J Posture/Palpation/Skin Start: 04/17/24 12:22 Freq: Status: Active Protocol: Document 04/17/24 14:42 SAK (Rec: 04/18/24 12:11 SAK [id number]) Posture Evaluation Position Standing Head/C-Spine Posture Forward Head T-Spine Posture Increased Kyphosis L-Spine Posture Flattened Shoulder Posture (L) Rounded,(R) Rounded Scapula Posture (L) Protracted,(R) Protracted Arm Posture (L) Internally Rotated,(R) Internally Rotated Pelvis Posture Posterior Tilted Weight Distribution Weight Shifted Left Palpation Assessment Location lumbar paraspinals Palpation Findings Soft Tissue Tightness, Tenderness c/s Palpation Location right SCM, UT, LS Palpation Findings Soft Tissue Tightness, Tenderness PT-OP-K Range of Motion Start: 04/17/24 12:22 Freq: Status: Active Protocol: Document 04/17/24 14:42 SAK (Rec: 04/17/24 15:19 SAK [id number]) Cervical Spine Range of Motion Cervical Spine Active Rotation Left 45 Rotation Right 60 Lateral Flexion Left 10 Lateral Flexion Right 20 ROM Limitations Soft Tissue Tightness,Pain Comments pain left rotation Lumbar Spine Range of Motion Lumbar Spine Active Flexion 45 Extension 10 Rotation Left 10 Rotation Right 20 Lateral Flexion Left 30 Lateral Flexion Right 35 ROM Limitations Soft Tissue Tightness,Pain Shoulder Goniometric Range of Motion Shoulder marti Shoulder ROM WFL Yes Hip Goniometric Range of Motion Hip Right Hip ROM WFL No Flexion w/Knee Flexed 120 Straight Leg Raise 50 Extension 0 Abduction 30 Internal Rotation 10 External Rotation 35 left Hip ROM WFL No Flexion w/Knee Flexed 120 Straight Leg Raise 55 Extension 0 Abduction 35 Internal Rotation 15 External Rotation 35 Hip ROM Limitations Hip ROM Limitations Soft Tissue Tightness Knee Goniometric Range of Motion Knee marti Knee ROM WFL Yes PT-OP-Q Treatments Start: 04/17/24 12:22 Freq: Status: Active Protocol: Document 05/01/24 15:20 AB (Rec: 05/01/24 16:16 AB [id number]) Therapeutic Exercises Supine Exercises hip stretches Supine Exercise Name 1. piriformis 2. figure 4 Reps/Minutes 15 to 30 sec X 2 each LE each stretch Comments verbal cues CSrotation on occ float Side bilateral Reps/Minutes 3 min to perform slowly in pain free range scapular retractions Supine Exercise Name back to wall this session. Reps/Minutes X 5 sec chin retraction Supine Exercise Name chin tuck Equipment Used on pillow Reps/Minutes 5 sec X 5 sec Comments back to wall with pillow this session Prone Exercises CS rotation in counter plank position Side bilateral Reps/Minutes X10 Comments verbal and visual cues Therapeutic Activity Therapeutic Activity posture check Comments Verbal cues for posture 5-10 % chin tuck 10% scap squeeze then hold the position when stepping away from the wall Performed X 2 Manual Therapy Treatment Consent Patient gave verbal consent for manual Yes treatment Soft Tissue Mobilization cervical Body Location R Scalenes, B paraspinals, Mobilization Type Cross-Friction,Rolling, Sustained Pressure Intensity/Depth Moderate Body Position Sitting PT-OP-T Assessment and Plan Start: 04/17/24 12:22 Freq: Status: Active Protocol: Document 05/01/24 15:20 AB (Rec: 05/01/24 16:16 AB [id number]) Physical Therapy Assessment Goals Four Impairment posture dysfunction with crossed syndrome of tight and weak musculature Short Term Goal (STG) Patient to be instructed in neutral posture and instructed in postural correction exercises STG Duration 05/18/24 Long-Term Goal (LTG) Patient to be independent and compliant with HEP and demonstrate improved postural alignment statically and dynamically with functional activities and improved ROM to WNL and strength to at least 4+/5. LTG Duration 06/17/24 Three Impairment Low back pain and neck pain 5/ 10 on pain scale, interrupts sleep Long-Term Goal (LTG) Reduce pain by at least 50% with patient to report not being wakened due to pain. LTG Duration 06/17/24 Two Impairment impaired activity tolerance as indicated by NDI and Oswestry questionaires Short Term Goal (STG) Patient to demonstrate at least 25% improvement in NDI and Oswestry scores STG Duration 05/18/24 School Coordinator Goal (LTG) Patient to demonstrate at least 50% improvement in NDI and Oswestry scores and indication of improved function and activity tolerance LTG Duration 06/17/24 One Impairment pain Assessment Summary Assessment Marjorie rates back pain 05/23 end of session, ambulating out of session without device. Decreased patty to piriformis and figure 4 stretch, reports feeling back discomfort as well as stretch in gluteals. Physical Therapy Plan Frequency and Duration Frequency of Treatment 2x/Week Duration of treatment (weeks) 8 Plan of Care Start Date 04/17/24 Plan of Care End Date 06/17/24 Next Visit Focus/Plan Next Note Type Treatment Note Next Visit Plan Wall posture as able, continue postural correction supine, recumbant elliptical, issue desk stretch HO. Trial sean, rodo ext with TB
--- NOTE | 2024-05-03 14:45 | PT.OTN ---
Current Diagnoses Pain in right shoulder (05/03/24) Cervicalgia (05/03/24) Low back pain, unspecified (05/03/24) Physical Therapy Treatment Note PT-OP-A Visit Information Start: 04/17/24 12:22 Freq: Status: Active Protocol: Document 05/03/24 12:53 AB (Rec: 05/03/24 14:45 AB [id number]) Out-Patient Physical Therapy Visit Information Visit Information Visit Type Treatment Note Visit Start Time 13:51 Visit Stop Time 14:47 Visit Number 5 Number of BACKUP ADMINISTRATOR Visits 2 Evaluation Information Evaluation Date 04/17/24 Precautions Precautions PMH: Basal cell carcinoma Essential hypertension Essential tremor Asthma Bilateral medial epicondylitis of elbow joint (2004) Sleep apnea (~1999) Anxiety (~2001) Chronic headaches Right hip pain (2005) Cervical spine pain (~1999) Shoulder pain Foot pain, left (~2009) Fibromyalgia (~1999) Chronic back pain (2003) Recurrent sinusitis (~1999) Cataract, right eye (2013) GERD (gastroesophageal reflux disease) (~2004) DVT (deep venous thrombosis) ( 2008) Major depressive disorder in partial remission Surgical History (Reviewed @ 15:20 by Ulises Loyd MD) History of right cataract surgery (2013) Anesthesia History of gynecologic surgery History of basal cell carcinoma (BCC) excision (02/24) History of open reduction and internal fixation (ORIF) procedure (09/30/15) PT-OP-B Current Condition Start: 04/17/24 12:22 Freq: Status: Active Protocol: Document 04/25/24 15:22 SAK (Rec: 04/25/24 16:13 SAK [id number]) Current Condition History of Current Condition Onset Date 6 months Current Complaints low back pain, chronic neck pain History of Current Condition gradual onset, worsening, no known reason. No imaging. Worse with prolonged sitting ( uses ice pack), alternates Tylenol and ADvil throughout the day and takes 1/2 ' s muscle relaxant to be able to sleep. Also reports lateral neck pain; chronic, also increased over the past 6months, using ice, heat, icy hot. No regular exercise except walking, states she found HEP from prior PT but reports made pain a little worse. Starts off sleeping on back, doesn't sleep on right side because makes neck pain worse, then goes to left side and stomache (head turned to left) Prior Treatments and Tests none Future Testing and Treatments Planned none PT-OP-C Subjective Start: 04/17/24 12:22 Freq: Status: Active Protocol: Document 05/03/24 12:53 AB (Rec: 05/03/24 14:45 AB [id number]) OP-PT Subjective Patient Comments Patient Comments Patient reports right side of neck is tighter, reports was on the computer at the library yesterday and reading last night. PT-OP-H Neuro Start: 04/17/24 12:22 Freq: Status: Active Protocol: Document 04/17/24 14:42 SAK (Rec: 04/18/24 12:11 SAK [id number]) Sensation Evaluation Gross Sensation Gross Sensation WNL PT-OP-J Posture/Palpation/Skin Start: 04/17/24 12:22 Freq: Status: Active Protocol: Document 04/17/24 14:42 SAK (Rec: 04/18/24 12:11 SAK [id number]) Posture Evaluation Position Standing Head/C-Spine Posture Forward Head T-Spine Posture Increased Kyphosis L-Spine Posture Flattened Shoulder Posture (L) Rounded,(R) Rounded Scapula Posture (L) Protracted,(R) Protracted Arm Posture (L) Internally Rotated,(R) Internally Rotated Pelvis Posture Posterior Tilted Weight Distribution Weight Shifted Left Palpation Assessment Location lumbar paraspinals Palpation Findings Soft Tissue Tightness, Tenderness c/s Palpation Location right SCM, UT, LS Palpation Findings Soft Tissue Tightness, Tenderness PT-OP-K Range of Motion Start: 04/17/24 12:22 Freq: Status: Active Protocol: Document 04/17/24 14:42 SAK (Rec: 04/17/24 15:19 SAK [id number]) Cervical Spine Range of Motion Cervical Spine Active Rotation Left 45 Rotation Right 60 Lateral Flexion Left 10 Lateral Flexion Right 20 ROM Limitations Soft Tissue Tightness,Pain Comments pain left rotation Lumbar Spine Range of Motion Lumbar Spine Active Flexion 45 Extension 10 Rotation Left 10 Rotation Right 20 Lateral Flexion Left 30 Lateral Flexion Right 35 ROM Limitations Soft Tissue Tightness,Pain Shoulder Goniometric Range of Motion Shoulder marti Shoulder ROM WFL Yes Hip Goniometric Range of Motion Hip Right Hip ROM WFL No Flexion w/Knee Flexed 120 Straight Leg Raise 50 Extension 0 Abduction 30 Internal Rotation 10 External Rotation 35 left Hip ROM WFL No Flexion w/Knee Flexed 120 Straight Leg Raise 55 Extension 0 Abduction 35 Internal Rotation 15 External Rotation 35 Hip ROM Limitations Hip ROM Limitations Soft Tissue Tightness Knee Goniometric Range of Motion Knee marti Knee ROM WFL Yes PT-OP-Q Treatments Start: 04/17/24 12:22 Freq: Status: Active Protocol: Document 05/03/24 12:53 AB (Rec: 05/03/24 14:45 AB [id number]) Cardio Equipment Recumbent Stepper (Sci-Fit) Duration (Minutes) 5 Resistance 3 Seat Position 9 Other trial folded towel LS area/ reports no change in pain Therapeutic Exercises Supine Exercises CSrotation on occ float Side bilateral Reps/Minutes 3 min to perform slowly in pain free range Standing Exercises row with shoulder extension Standing Exercise Name VC for one foot fwd Resistance level one peach band Equipment Used HEP Reps/Minutes X15 Comments verbal and visual cues Other Exercises Desk stretch hand out 12 exercises Other Exercise Name Handout given, pt ed to perform when seated for increased time. Side bilateral Reps/Minutes 12 exercises 3-10 sec holds Comments verbal and visual cues Manual Therapy Treatment Consent Patient gave verbal consent for manual Yes treatment Soft Tissue Mobilization cervical Body Location R Scalenes, B paraspinals, UT /levator scap Mobilization Type Cross-Friction,Rolling, Sustained Pressure Intensity/Depth Moderate Body Position Sitting PT-OP-R Modalities Start: 04/17/24 12:22 Freq: Status: Active Protocol: Document 05/03/24 12:53 AB (Rec: 05/03/24 14:45 AB [id number]) Hot Pack/Cold Pack Treatment back Location back Patient Position Hooklying Comments 10 min extra towel over pillowcase PT-OP-T Assessment and Plan Start: 04/17/24 12:22 Freq: Status: Active Protocol: Document 05/03/24 12:53 AB (Rec: 05/03/24 14:45 AB [id number]) Physical Therapy Assessment Goals Four Impairment posture dysfunction with crossed syndrome of tight and weak musculature Short Term Goal (STG) Patient to be instructed in neutral posture and instructed in postural correction exercises STG Duration 05/18/24 Counsellors Goal (LTG) Patient to be independent and compliant with HEP and demonstrate improved postural alignment statically and dynamically with functional activities and improved ROM to WNL and strength to at least 4+/5. LTG Duration 06/17/24 Three Impairment Low back pain and neck pain 5/ 10 on pain scale, interrupts sleep [facility] Goal (LTG) Reduce pain by at least 50% with patient to report not being wakened due to pain. LTG Duration 06/17/24 Two Impairment impaired activity tolerance as indicated by NDI and Oswestry questionaires Short Term Goal (STG) Patient to demonstrate at least 25% improvement in NDI and Oswestry scores STG Duration 05/18/24 Counsellors Goal (LTG) Patient to demonstrate at least 50% improvement in NDI and Oswestry scores and indication of improved function and activity tolerance LTG Duration 06/17/24 One Impairment pain Assessment Summary Assessment Marjorie comments the neck is better, she isn't thinking about it end of session. Marjorie complaining of back pain throughout session, and when questioned reports ice helps decrease pain. Physical Therapy Plan Frequency and Duration Frequency of Treatment 2x/Week Duration of treatment (weeks) 8 Plan of Care Start Date 04/17/24 Plan of Care End Date 06/17/24 Therapeutic Interventions Therapeutic Interventions Home Exercise Program,Manual Therapy,Neuromuscular Re- education,Patient/Caregiver Education,Self-Care/Home Management,Soft Tissue Mobilization,Taping, Therapeutic Activities, Therapeutic Exercises Next Visit Focus/Plan Next Note Type Treatment Note Next Visit Plan Wall posture as able, continue postural correction supine, & recumbant elliptical. Trial row, with TB
--- NOTE | 2024-05-03 14:52 | PT.OTN ---
Current Diagnoses Pain in right shoulder (05/03/24) Cervicalgia (05/03/24) Low back pain, unspecified (05/03/24) Physical Therapy Treatment Note PT-OP-A Visit Information Start: 04/17/24 12:22 Freq: Status: Active Protocol: Document 05/03/24 12:53 AB (Rec: 05/03/24 14:45 AB [id number]) Out-Patient Physical Therapy Visit Information Visit Information Visit Type Treatment Note Visit Start Time 13:51 Visit Stop Time 14:47 Visit Number 5 Number of DIGITAL COLOR PRESS OPERATOR Visits 2 Evaluation Information Evaluation Date 04/17/24 Precautions Precautions PMH: Basal cell carcinoma Essential hypertension Essential tremor Asthma Bilateral medial epicondylitis of elbow joint (2004) Sleep apnea (~1999) Anxiety (~2001) Chronic headaches Right hip pain (2005) Cervical spine pain (~1999) Shoulder pain Foot pain, left (~2009) Fibromyalgia (~1999) Chronic back pain (2003) Recurrent sinusitis (~1999) Cataract, right eye (2013) GERD (gastroesophageal reflux disease) (~2004) DVT (deep venous thrombosis) ( 2008) Major depressive disorder in partial remission Surgical History (Reviewed @ 15:20 by Ulises Loyd MD) History of right cataract surgery (2013) Anesthesia History of gynecologic surgery History of basal cell carcinoma (BCC) excision (02/24) History of open reduction and internal fixation (ORIF) procedure (09/30/15) PT-OP-B Current Condition Start: 04/17/24 12:22 Freq: Status: Active Protocol: Document 04/25/24 15:22 SAK (Rec: 04/25/24 16:13 SAK [id number]) Current Condition History of Current Condition Onset Date 6 months Current Complaints low back pain, chronic neck pain History of Current Condition gradual onset, worsening, no known reason. No imaging. Worse with prolonged sitting ( uses ice pack), alternates Tylenol and ADvil throughout the day and takes 1/2 ' s muscle relaxant to be able to sleep. Also reports lateral neck pain; chronic, also increased over the past 6months, using ice, heat, icy hot. No regular exercise except walking, states she found HEP from prior PT but reports made pain a little worse. Starts off sleeping on back, doesn't sleep on right side because makes neck pain worse, then goes to left side and stomache (head turned to left) Prior Treatments and Tests none Future Testing and Treatments Planned none PT-OP-C Subjective Start: 04/17/24 12:22 Freq: Status: Active Protocol: Document 05/03/24 12:53 AB (Rec: 05/03/24 14:45 AB [id number]) OP-PT Subjective Patient Comments Patient Comments Patient reports right side of neck is tighter, reports was on the computer at the library yesterday and reading last night. PT-OP-H Neuro Start: 04/17/24 12:22 Freq: Status: Active Protocol: Document 04/17/24 14:42 SAK (Rec: 04/18/24 12:11 SAK [id number]) Sensation Evaluation Gross Sensation Gross Sensation WNL PT-OP-J Posture/Palpation/Skin Start: 04/17/24 12:22 Freq: Status: Active Protocol: Document 04/17/24 14:42 SAK (Rec: 04/18/24 12:11 SAK [id number]) Posture Evaluation Position Standing Head/C-Spine Posture Forward Head T-Spine Posture Increased Kyphosis L-Spine Posture Flattened Shoulder Posture (L) Rounded,(R) Rounded Scapula Posture (L) Protracted,(R) Protracted Arm Posture (L) Internally Rotated,(R) Internally Rotated Pelvis Posture Posterior Tilted Weight Distribution Weight Shifted Left Palpation Assessment Location lumbar paraspinals Palpation Findings Soft Tissue Tightness, Tenderness c/s Palpation Location right SCM, UT, LS Palpation Findings Soft Tissue Tightness, Tenderness PT-OP-K Range of Motion Start: 04/17/24 12:22 Freq: Status: Active Protocol: Document 04/17/24 14:42 SAK (Rec: 04/17/24 15:19 SAK [id number]) Cervical Spine Range of Motion Cervical Spine Active Rotation Left 45 Rotation Right 60 Lateral Flexion Left 10 Lateral Flexion Right 20 ROM Limitations Soft Tissue Tightness,Pain Comments pain left rotation Lumbar Spine Range of Motion Lumbar Spine Active Flexion 45 Extension 10 Rotation Left 10 Rotation Right 20 Lateral Flexion Left 30 Lateral Flexion Right 35 ROM Limitations Soft Tissue Tightness,Pain Shoulder Goniometric Range of Motion Shoulder marti Shoulder ROM WFL Yes Hip Goniometric Range of Motion Hip Right Hip ROM WFL No Flexion w/Knee Flexed 120 Straight Leg Raise 50 Extension 0 Abduction 30 Internal Rotation 10 External Rotation 35 left Hip ROM WFL No Flexion w/Knee Flexed 120 Straight Leg Raise 55 Extension 0 Abduction 35 Internal Rotation 15 External Rotation 35 Hip ROM Limitations Hip ROM Limitations Soft Tissue Tightness Knee Goniometric Range of Motion Knee marti Knee ROM WFL Yes PT-OP-Q Treatments Start: 04/17/24 12:22 Freq: Status: Active Protocol: Document 05/03/24 12:53 AB (Rec: 05/03/24 14:45 AB [id number]) Cardio Equipment Recumbent Stepper (Sci-Fit) Duration (Minutes) 5 Resistance 3 Seat Position 9 Other trial folded towel LS area/ reports no change in pain Therapeutic Exercises Supine Exercises CSrotation on occ float Side bilateral Reps/Minutes 3 min to perform slowly in pain free range Standing Exercises row with shoulder extension Standing Exercise Name VC for one foot fwd Resistance level one peach band Equipment Used HEP Reps/Minutes X15 Comments verbal and visual cues Other Exercises Desk stretch hand out 12 exercises Other Exercise Name Handout given, pt ed to perform when seated for increased time. Side bilateral Reps/Minutes 12 exercises 3-10 sec holds Comments verbal and visual cues Manual Therapy Treatment Consent Patient gave verbal consent for manual Yes treatment Soft Tissue Mobilization cervical Body Location R Scalenes, B paraspinals, UT /levator scap Mobilization Type Cross-Friction,Rolling, Sustained Pressure Intensity/Depth Moderate Body Position Sitting PT-OP-R Modalities Start: 04/17/24 12:22 Freq: Status: Active Protocol: Document 05/03/24 12:53 AB (Rec: 05/03/24 14:45 AB [id number]) Hot Pack/Cold Pack Treatment back Location back Patient Position Hooklying Comments 10 min extra towel over pillowcase PT-OP-T Assessment and Plan Start: 04/17/24 12:22 Freq: Status: Active Protocol: Document 05/03/24 12:53 AB (Rec: 05/03/24 14:45 AB [id number]) Physical Therapy Assessment Goals Four Impairment posture dysfunction with crossed syndrome of tight and weak musculature Short Term Goal (STG) Patient to be instructed in neutral posture and instructed in postural correction exercises STG Duration 05/18/24 Administrative Resources Associate Goal (LTG) Patient to be independent and compliant with HEP and demonstrate improved postural alignment statically and dynamically with functional activities and improved ROM to WNL and strength to at least 4+/5. LTG Duration 06/17/24 Three Impairment Low back pain and neck pain 5/ 10 on pain scale, interrupts sleep Retirement Goal (LTG) Reduce pain by at least 50% with patient to report not being wakened due to pain. LTG Duration 06/17/24 Two Impairment impaired activity tolerance as indicated by NDI and Oswestry questionaires Short Term Goal (STG) Patient to demonstrate at least 25% improvement in NDI and Oswestry scores STG Duration 05/18/24 Administrative Resources Associate Goal (LTG) Patient to demonstrate at least 50% improvement in NDI and Oswestry scores and indication of improved function and activity tolerance LTG Duration 06/17/24 One Impairment pain Assessment Summary Assessment Marjorie comments the neck is better, she isn't thinking about it end of session. Marjorie complaining of back pain throughout session, and when questioned reports ice helps decrease pain. Physical Therapy Plan Frequency and Duration Frequency of Treatment 2x/Week Duration of treatment (weeks) 8 Plan of Care Start Date 04/17/24 Plan of Care End Date 06/17/24 Therapeutic Interventions Therapeutic Interventions Home Exercise Program,Manual Therapy,Neuromuscular Re- education,Patient/Caregiver Education,Self-Care/Home Management,Soft Tissue Mobilization,Taping, Therapeutic Activities, Therapeutic Exercises Next Visit Focus/Plan Next Note Type Treatment Note Next Visit Plan Wall posture as able, continue postural correction supine, & recumbant elliptical. Trial row, with TB
--- NOTE | 2024-05-08 17:13 | PT.OTN ---
Current Diagnoses Pain in right shoulder (05/08/24) Cervicalgia (05/08/24) Low back pain, unspecified (05/08/24) Physical Therapy Treatment Note PT-OP-A Visit Information Start: 04/17/24 12:22 Freq: Status: Active Protocol: Document 05/08/24 15:28 AB (Rec: 05/08/24 17:13 AB [id number]) Out-Patient Physical Therapy Visit Information Visit Information Visit Type Treatment Note Visit Start Time 16:17 Visit Stop Time 17:00 Visit Number 6 Number of PREMIUM SERVICE REPRESENTATIVE Visits 3 Evaluation Information Evaluation Date 04/17/24 Precautions Precautions PMH: Basal cell carcinoma Essential hypertension Essential tremor Asthma Bilateral medial epicondylitis of elbow joint (2004) Sleep apnea (~1999) Anxiety (~2001) Chronic headaches Right hip pain (2005) Cervical spine pain (~1999) Shoulder pain Foot pain, left (~2009) Fibromyalgia (~1999) Chronic back pain (2003) Recurrent sinusitis (~1999) Cataract, right eye (2013) GERD (gastroesophageal reflux disease) (~2004) DVT (deep venous thrombosis) ( 2008) Major depressive disorder in partial remission Surgical History (Reviewed @ 15:20 by Ulises Loyd MD) History of right cataract surgery (2013) Anesthesia History of gynecologic surgery History of basal cell carcinoma (BCC) excision (02/24) History of open reduction and internal fixation (ORIF) procedure (09/30/15) PT-OP-B Current Condition Start: 04/17/24 12:22 Freq: Status: Active Protocol: Document 04/25/24 15:22 SAK (Rec: 04/25/24 16:13 SAK [id number]) Current Condition History of Current Condition Onset Date 6 months Current Complaints low back pain, chronic neck pain History of Current Condition gradual onset, worsening, no known reason. No imaging. Worse with prolonged sitting ( uses ice pack), alternates Tylenol and ADvil throughout the day and takes 1/2 ' s muscle relaxant to be able to sleep. Also reports lateral neck pain; chronic, also increased over the past 6months, using ice, heat, icy hot. No regular exercise except walking, states she found HEP from prior PT but reports made pain a little worse. Starts off sleeping on back, doesn't sleep on right side because makes neck pain worse, then goes to left side and stomache (head turned to left) Prior Treatments and Tests none Future Testing and Treatments Planned none PT-OP-C Subjective Start: 04/17/24 12:22 Freq: Status: Active Protocol: Document 05/08/24 15:28 AB (Rec: 05/08/24 17:13 AB [id number]) OP-PT Subjective Patient Comments Patient Comments Marjorie reports she hasn't tried the desk exercises at home yet. Patient reports she is the same, has been trying to get out and walk. Patient reports she hasn't done the band exercises, feels she is not ready for it. Marjorie rates neck pain 4/10 back pain 3-4/ 10 start of session. PT-OP-H Neuro Start: 04/17/24 12:22 Freq: Status: Active Protocol: Document 04/17/24 14:42 SAK (Rec: 04/18/24 12:11 SAK [id number]) Sensation Evaluation Gross Sensation Gross Sensation WNL PT-OP-J Posture/Palpation/Skin Start: 04/17/24 12:22 Freq: Status: Active Protocol: Document 04/17/24 14:42 SAK (Rec: 04/18/24 12:11 SAK [id number]) Posture Evaluation Position Standing Head/C-Spine Posture Forward Head T-Spine Posture Increased Kyphosis L-Spine Posture Flattened Shoulder Posture (L) Rounded,(R) Rounded Scapula Posture (L) Protracted,(R) Protracted Arm Posture (L) Internally Rotated,(R) Internally Rotated Pelvis Posture Posterior Tilted Weight Distribution Weight Shifted Left Palpation Assessment Location lumbar paraspinals Palpation Findings Soft Tissue Tightness, Tenderness c/s Palpation Location right SCM, UT, LS Palpation Findings Soft Tissue Tightness, Tenderness PT-OP-K Range of Motion Start: 04/17/24 12:22 Freq: Status: Active Protocol: Document 04/17/24 14:42 SAK (Rec: 04/17/24 15:19 SAK [id number]) Cervical Spine Range of Motion Cervical Spine Active Rotation Left 45 Rotation Right 60 Lateral Flexion Left 10 Lateral Flexion Right 20 ROM Limitations Soft Tissue Tightness,Pain Comments pain left rotation Lumbar Spine Range of Motion Lumbar Spine Active Flexion 45 Extension 10 Rotation Left 10 Rotation Right 20 Lateral Flexion Left 30 Lateral Flexion Right 35 ROM Limitations Soft Tissue Tightness,Pain Shoulder Goniometric Range of Motion Shoulder marti Shoulder ROM WFL Yes Hip Goniometric Range of Motion Hip Right Hip ROM WFL No Flexion w/Knee Flexed 120 Straight Leg Raise 50 Extension 0 Abduction 30 Internal Rotation 10 External Rotation 35 left Hip ROM WFL No Flexion w/Knee Flexed 120 Straight Leg Raise 55 Extension 0 Abduction 35 Internal Rotation 15 External Rotation 35 Hip ROM Limitations Hip ROM Limitations Soft Tissue Tightness Knee Goniometric Range of Motion Knee marti Knee ROM WFL Yes PT-OP-Q Treatments Start: 04/17/24 12:22 Freq: Status: Active Protocol: Document 05/08/24 15:28 AB (Rec: 05/08/24 17:13 AB [id number]) Therapeutic Exercises Supine Exercises CSrotation on occ float Side bilateral Reps/Minutes 3 min to perform slowly in pain free range Standing Exercises CS rotation in counter plank Standing Exercise Name HEP Side bilateral Reps/Minutes X 10 Comments Verbal and visual cues row with shoulder extension Standing Exercise Name Standing shoulder Row Isomet reactive Resistance level one peach band Equipment Used HEP Comments verbal and visual cues Therapeutic Activity Therapeutic Activity posture check Comments Verbal cues for posture 5-10 % chin tuck 10% scap squeeze then hold the position when stepping away from the wall, ambulating ~15 feet between trials. Performed X3 Manual Therapy Treatment Consent Patient gave verbal consent for manual Yes treatment Soft Tissue Mobilization cervical Body Location R Scalenes, B paraspinals, UT /levator scap Mobilization Type Cross-Friction,Rolling, Sustained Pressure Intensity/Depth Moderate Body Position Sitting Joint Mobilizations scapular mobilization Joint bilateral scap Direction into dep and adduction Grade III Body Position Sidelying Reps/Duration X10 each direct each UE PT-OP-R Modalities Start: 04/17/24 12:22 Freq: Status: Active Protocol: Document 05/03/24 12:53 AB (Rec: 05/03/24 14:45 AB [id number]) Hot Pack/Cold Pack Treatment back Location back Patient Position Hooklying Comments 10 min extra towel over pillowcase PT-OP-T Assessment and Plan Start: 04/17/24 12:22 Freq: Status: Active Protocol: Document 05/08/24 15:28 AB (Rec: 05/08/24 17:13 AB [id number]) Physical Therapy Assessment Goals Four Impairment posture dysfunction with crossed syndrome of tight and weak musculature Short Term Goal (STG) Patient to be instructed in neutral posture and instructed in postural correction exercises STG Duration 05/18/24 Retirement Goal (LTG) Patient to be independent and compliant with HEP and demonstrate improved postural alignment statically and dynamically with functional activities and improved ROM to WNL and strength to at least 4+/5. LTG Duration 06/17/24 Three Impairment Low back pain and neck pain 5/ 10 on pain scale, interrupts sleep [employer] Specialist Goal (LTG) Reduce pain by at least 50% with patient to report not being wakened due to pain. LTG Duration 06/17/24 Two Impairment impaired activity tolerance as indicated by NDI and Oswestry questionaires Short Term Goal (STG) Patient to demonstrate at least 25% improvement in NDI and Oswestry scores STG Duration 05/18/24 Retirement Goal (LTG) Patient to demonstrate at least 50% improvement in NDI and Oswestry scores and indication of improved function and activity tolerance LTG Duration 06/17/24 One Impairment pain Assessment Summary Assessment Marjorie rates neck pain 3/10 end of session, comments tightness persists. Physical Therapy Plan Frequency and Duration Frequency of Treatment 2x/Week Duration of treatment (weeks) 8 Plan of Care Start Date 04/17/24 Plan of Care End Date 06/17/24 Next Visit Focus/Plan Next Note Type Treatment Note Next Visit Plan Wall posture as able, continue postural correction supine, & recumbant elliptical. Trial row, with TB
--- NOTE | 2024-05-13 16:12 | PT.OTN ---
Current Diagnoses Pain in right shoulder (05/13/24) Cervicalgia (05/13/24) Low back pain, unspecified (05/13/24) Physical Therapy Treatment Note PT-OP-A Visit Information Start: 04/17/24 12:22 Freq: Status: Active Protocol: Document 05/13/24 13:02 [facility] (Rec: 05/13/24 13:45 [facility] [id number]) Out-Patient Physical Therapy Visit Information Visit Information Visit Type Treatment Note Visit Start Time 13:03 Visit Stop Time 13:55 Visit Number 8 Number of FILM EDITOR Visits 0 Evaluation Information Evaluation Date 04/17/24 Precautions Precautions PMH: Basal cell carcinoma Essential hypertension Essential tremor Asthma Bilateral medial epicondylitis of elbow joint (2004) Sleep apnea (~1999) Anxiety (~2001) Chronic headaches Right hip pain (2005) Cervical spine pain (~1999) Shoulder pain Foot pain, left (~2009) Fibromyalgia (~1999) Chronic back pain (2003) Recurrent sinusitis (~1999) Cataract, right eye (2013) GERD (gastroesophageal reflux disease) (~2004) DVT (deep venous thrombosis) ( 2008) Major depressive disorder in partial remission Surgical History (Reviewed @ 15:20 by Ulises Loyd MD) History of right cataract surgery (2013) Anesthesia History of gynecologic surgery History of basal cell carcinoma (BCC) excision (02/24) History of open reduction and internal fixation (ORIF) procedure (09/30/15) PT-OP-B Current Condition Start: 04/17/24 12:22 Freq: Status: Active Protocol: Document 05/13/24 13:02 [facility] (Rec: 05/13/24 13:45 [facility] [id number]) Current Condition History of Current Condition Onset Date 6 months Current Complaints low back pain, chronic neck pain History of Current Condition gradual onset, worsening, no known reason. No imaging. Worse with prolonged sitting ( uses ice pack), alternates Tylenol and ADvil throughout the day and takes 1/2 ' s muscle relaxant to be able to sleep. Also reports lateral neck pain; chronic, also increased over the past 6months, using ice, heat, icy hot. No regular exercise except walking, states she found HEP from prior PT but reports made pain a little worse. Starts off sleeping on back, doesn't sleep on right side because makes neck pain worse, then goes to left side and stomache (head turned to left) Prior Treatments and Tests none Future Testing and Treatments Planned none PT-OP-C Subjective Start: 04/17/24 12:22 Freq: Status: Active Protocol: Document 05/13/24 13:02 [facility] (Rec: 05/13/24 13:45 [facility] [id number]) OP-PT Subjective Patient Comments Patient Comments Woke up with right hip hurting , woke up on left side. Reports pain with theraband exercise and counter neck rotation exercise. PT-OP-H Neuro Start: 04/17/24 12:22 Freq: Status: Active Protocol: Document 04/17/24 14:42 [facility] (Rec: 04/18/24 12:11 [facility] [id number]) Sensation Evaluation Gross Sensation Gross Sensation WNL PT-OP-J Posture/Palpation/Skin Start: 04/17/24 12:22 Freq: Status: Active Protocol: Document 04/17/24 14:42 [facility] (Rec: 04/18/24 12:11 [facility] [id number]) Posture Evaluation Position Standing Head/C-Spine Posture Forward Head T-Spine Posture Increased Kyphosis L-Spine Posture Flattened Shoulder Posture (L) Rounded,(R) Rounded Scapula Posture (L) Protracted,(R) Protracted Arm Posture (L) Internally Rotated,(R) Internally Rotated Pelvis Posture Posterior Tilted Weight Distribution Weight Shifted Left Palpation Assessment Location lumbar paraspinals Palpation Findings Soft Tissue Tightness, Tenderness c/s Palpation Location right SCM, UT, LS Palpation Findings Soft Tissue Tightness, Tenderness PT-OP-K Range of Motion Start: 04/17/24 12:22 Freq: Status: Active Protocol: Document 04/17/24 14:42 [facility] (Rec: 04/17/24 15:19 [facility] [id number]) Cervical Spine Range of Motion Cervical Spine Active Rotation Left 45 Rotation Right 60 Lateral Flexion Left 10 Lateral Flexion Right 20 ROM Limitations Soft Tissue Tightness,Pain Comments pain left rotation Lumbar Spine Range of Motion Lumbar Spine Active Flexion 45 Extension 10 Rotation Left 10 Rotation Right 20 Lateral Flexion Left 30 Lateral Flexion Right 35 ROM Limitations Soft Tissue Tightness,Pain Shoulder Goniometric Range of Motion Shoulder marti Shoulder ROM WFL Yes Hip Goniometric Range of Motion Hip Right Hip ROM WFL No Flexion w/Knee Flexed 120 Straight Leg Raise 50 Extension 0 Abduction 30 Internal Rotation 10 External Rotation 35 left Hip ROM WFL No Flexion w/Knee Flexed 120 Straight Leg Raise 55 Extension 0 Abduction 35 Internal Rotation 15 External Rotation 35 Hip ROM Limitations Hip ROM Limitations Soft Tissue Tightness Knee Goniometric Range of Motion Knee marti Knee ROM WFL Yes PT-OP-Q Treatments Start: 04/17/24 12:22 Freq: Status: Active Protocol: Document 05/13/24 13:02 SAK (Rec: 05/13/24 13:45 SAK [id number]) Cardio Equipment Recumbent Stepper (Sci-Fit) Duration (Minutes) 6 Resistance 3 Seat Position 9 Therapeutic Exercises Supine Exercises march with single leg lower Reps/Minutes 10x Comments cues for not letting l/s arch SKTC Reps/Minutes 2x30 hip ab Equipment Used pillow case over LE Reps/Minutes 10x CSrotation on occ float Side bilateral Reps/Minutes 2 min to perform slowly in pain free range Sidelying Exercises hip ab Reps/Minutes 10x left 4x right Comments lacking strength for full lift right, c/o buttock pain clamshell Sidelying Exercise Name clamshell and reverse clamshell Side bilateral Reps/Minutes X8 Comments Verbal cues and tacile cues to avoid rolling back open book Side bilateral Reps/Minutes X8 Comments Verbal and tactile cues for LE 's at 90 deg Standing Exercises sit to stand Reps/Minutes 10x CS rotation in counter plank Standing Exercise Name held row with shoulder extension Standing Exercise Name held Manual Therapy Treatment Soft Tissue Mobilization right lumbar spine, hip Body Location B Lumbar paraspinals, SI area, glute/piriformis bilaterally Mobilization Type Myofascial Release,Rolling, Strumming,Sustained Pressure Intensity/Depth Moderate Body Position Sidelying Self-Care/Home Management Treatment Education Other Education bed positioning including use of pillows and folded towel PT-OP-R Modalities Start: 04/17/24 12:22 Freq: Status: Active Protocol: Document 05/03/24 12:53 AB (Rec: 05/03/24 14:45 AB [id number]) Hot Pack/Cold Pack Treatment back Location back Patient Position Hooklying Comments 10 min extra towel over pillowcase PT-OP-T Assessment and Plan Start: 04/17/24 12:22 Freq: Status: Active Protocol: Document 05/13/24 13:02 SAK (Rec: 05/13/24 13:45 SAK [id number]) Physical Therapy Assessment Goals Four Impairment posture dysfunction with crossed syndrome of tight and weak musculature Short Term Goal (STG) Patient to be instructed in neutral posture and instructed in postural correction exercises 05/13/24: goal met STG Duration 05/18/24 [employer]older Goal (LTG) Patient to be independent and compliant with HEP and demonstrate improved postural alignment statically and dynamically with functional activities and improved ROM to WNL and strength to at least 4+/5. LTG Duration 06/17/24 Three Impairment Low back pain and neck pain 5/ 10 on pain scale, interrupts sleep Assisted Goal (LTG) Reduce pain by at least 50% with patient to report not being wakened due to pain. 05/13/24: some goal progress, not fully met. LTG Duration 06/17/24 Two Impairment impaired activity tolerance as indicated by NDI and Oswestry questionaires Short Term Goal (STG) Patient to demonstrate at least 25% improvement in NDI and Oswestry scores 05/13/24: Goal progress : Oswestry 44%, NDI 34%. STG Duration 05/18/24 Silk Folder Goal (LTG) Patient to improve in NDI and Oswestry scores to no greater than 25% as an indication of improved function and activity tolerance LTG Duration 06/17/24 Progress Towards Goals Progress Towards Goals Progressing Toward Goals Assessment Summary Assessment Reviewed bed positioning with use of pillow between knees decreasing hip discomfort. Reports dec pain after treatment. Modified treatment to eliminate painful ex. Trial supine april with single bent knee lowering with good patty. Patient with significant weakness marti hip ab right greater than left, unable to do sidelying hip abd right, can do gravity eliminated. Physical Therapy Plan Frequency and Duration Frequency of Treatment 2x/Week Duration of treatment (weeks) 8 Plan of Care Start Date 04/17/24 Plan of Care End Date 06/17/24 Therapeutic Interventions Therapeutic Interventions Home Exercise Program,Manual Therapy,Neuromuscular Re- education,Patient/Caregiver Education,Self-Care/Home Management,Soft Tissue Mobilization,Taping, Therapeutic Activities, Therapeutic Exercises Next Visit Focus/Plan Next Note Type Treatment Note Next Visit Plan Progress core stab, hip strengthening as tolerated.
--- NOTE | 2024-05-15 16:13 | PT.OTN ---
Current Diagnoses Pain in right shoulder (05/15/24) Cervicalgia (05/15/24) Low back pain, unspecified (05/15/24) Physical Therapy Treatment Note PT-OP-A Visit Information Start: 04/17/24 12:22 Freq: Status: Active Protocol: Document 05/15/24 14:29 AB (Rec: 05/15/24 16:13 AB [id number]) Out-Patient Physical Therapy Visit Information Visit Information Visit Type Treatment Note Visit Start Time 14:37 Visit Stop Time 15:17 Visit Number 9 Number of WIRELESS TEAM MEMBER Visits 1 Evaluation Information Evaluation Date 04/17/24 Precautions Precautions PMH: Basal cell carcinoma Essential hypertension Essential tremor Asthma Bilateral medial epicondylitis of elbow joint (2004) Sleep apnea (~1999) Anxiety (~2001) Chronic headaches Right hip pain (2005) Cervical spine pain (~1999) Shoulder pain Foot pain, left (~2009) Fibromyalgia (~1999) Chronic back pain (2003) Recurrent sinusitis (~1999) Cataract, right eye (2013) GERD (gastroesophageal reflux disease) (~2004) DVT (deep venous thrombosis) ( 2008) Major depressive disorder in partial remission Surgical History (Reviewed @ 15:20 by Ulises Loyd MD) History of right cataract surgery (2013) Anesthesia History of gynecologic surgery History of basal cell carcinoma (BCC) excision (02/24) History of open reduction and internal fixation (ORIF) procedure (09/30/15) PT-OP-B Current Condition Start: 04/17/24 12:22 Freq: Status: Active Protocol: Document 05/13/24 13:02 SAK (Rec: 05/13/24 13:45 SAK [id number]) Current Condition History of Current Condition Onset Date 6 months Current Complaints low back pain, chronic neck pain History of Current Condition gradual onset, worsening, no known reason. No imaging. Worse with prolonged sitting ( uses ice pack), alternates Tylenol and ADvil throughout the day and takes 1/2 ' s muscle relaxant to be able to sleep. Also reports lateral neck pain; chronic, also increased over the past 6months, using ice, heat, icy hot. No regular exercise except walking, states she found HEP from prior PT but reports made pain a little worse. Starts off sleeping on back, doesn't sleep on right side because makes neck pain worse, then goes to left side and stomache (head turned to left) Prior Treatments and Tests none Future Testing and Treatments Planned none PT-OP-C Subjective Start: 04/17/24 12:22 Freq: Status: Active Protocol: Document 05/15/24 14:29 AB (Rec: 05/15/24 16:13 AB [id number]) OP-PT Subjective Patient Comments Patient Comments Marjorie reports the band exercise when she steps back bothered her ( gestures to R UT area) Marjorie reports she is the same. Marjorie reports performing her HEp once a day. Marjorie rates neck pain 3/10 back pain 2/10 start of session. PT-OP-H Neuro Start: 04/17/24 12:22 Freq: Status: Active Protocol: Document 04/17/24 14:42 SAK (Rec: 04/18/24 12:11 SAK [id number]) Sensation Evaluation Gross Sensation Gross Sensation WNL PT-OP-J Posture/Palpation/Skin Start: 04/17/24 12:22 Freq: Status: Active Protocol: Document 04/17/24 14:42 SAK (Rec: 04/18/24 12:11 SAK [id number]) Posture Evaluation Position Standing Head/C-Spine Posture Forward Head T-Spine Posture Increased Kyphosis L-Spine Posture Flattened Shoulder Posture (L) Rounded,(R) Rounded Scapula Posture (L) Protracted,(R) Protracted Arm Posture (L) Internally Rotated,(R) Internally Rotated Pelvis Posture Posterior Tilted Weight Distribution Weight Shifted Left Palpation Assessment Location lumbar paraspinals Palpation Findings Soft Tissue Tightness, Tenderness c/s Palpation Location right SCM, UT, LS Palpation Findings Soft Tissue Tightness, Tenderness PT-OP-K Range of Motion Start: 04/17/24 12:22 Freq: Status: Active Protocol: Document 04/17/24 14:42 SAK (Rec: 04/17/24 15:19 SAK [id number]) Cervical Spine Range of Motion Cervical Spine Active Rotation Left 45 Rotation Right 60 Lateral Flexion Left 10 Lateral Flexion Right 20 ROM Limitations Soft Tissue Tightness,Pain Comments pain left rotation Lumbar Spine Range of Motion Lumbar Spine Active Flexion 45 Extension 10 Rotation Left 10 Rotation Right 20 Lateral Flexion Left 30 Lateral Flexion Right 35 ROM Limitations Soft Tissue Tightness,Pain Shoulder Goniometric Range of Motion Shoulder marti Shoulder ROM WFL Yes Hip Goniometric Range of Motion Hip Right Hip ROM WFL No Flexion w/Knee Flexed 120 Straight Leg Raise 50 Extension 0 Abduction 30 Internal Rotation 10 External Rotation 35 left Hip ROM WFL No Flexion w/Knee Flexed 120 Straight Leg Raise 55 Extension 0 Abduction 35 Internal Rotation 15 External Rotation 35 Hip ROM Limitations Hip ROM Limitations Soft Tissue Tightness Knee Goniometric Range of Motion Knee marti Knee ROM WFL Yes PT-OP-Q Treatments Start: 04/17/24 12:22 Freq: Status: Active Protocol: Document 05/15/24 14:29 AB (Rec: 05/15/24 16:13 AB [id number]) Therapeutic Exercises Supine Exercises resisted hip flexion Supine Exercise Name possibly next session march with single leg lower Reps/Minutes 5x Comments cues for not letting l/s arch hip ab Equipment Used pillow case over LE Reps/Minutes 10x Comments VC to avoid toe out CSrotation on occ float Side bilateral Reps/Minutes 2 min to perform slowly in pain free range pec stretch Supine Exercise Name Goal post, chest pricer bagger Side bilateral Reps/Minutes 5x , ~30 sec Comments cues for scapular setting chin retraction Supine Exercise Name chin tuck Equipment Used on occipital float Reps/Minutes 5 sec X 5 sec Standing Exercises side stepping Standing Exercise Name next session Manual Therapy Treatment Consent Patient gave verbal consent for manual Yes treatment Soft Tissue Mobilization right lumbar spine, hip Body Location B Lumbar paraspinals, Mobilization Type Sustained Pressure Intensity/Depth Moderate Body Position Sidelying shoulder Body Location R>L UT, LS, B pec, B scalenes at clavicle lateral Mobilization Type Rolling,Strumming,Sustained Pressure Intensity/Depth Moderate Body Position Hooklying Comments and seated PT-OP-R Modalities Start: 04/17/24 12:22 Freq: Status: Active Protocol: Document 05/03/24 12:53 AB (Rec: 05/03/24 14:45 AB [id number]) Hot Pack/Cold Pack Treatment back Location back Patient Position Hooklying Comments 10 min extra towel over pillowcase PT-OP-T Assessment and Plan Start: 04/17/24 12:22 Freq: Status: Active Protocol: Document 05/15/24 14:29 AB (Rec: 05/15/24 16:13 AB [id number]) Physical Therapy Assessment Goals Four Impairment posture dysfunction with crossed syndrome of tight and weak musculature Short Term Goal (STG) Patient to be instructed in neutral posture and instructed in postural correction exercises 05/13/24: goal met STG Duration 05/18/24 Nylon Winder Goal (LTG) Patient to be independent and compliant with HEP and demonstrate improved postural alignment statically and dynamically with functional activities and improved ROM to WNL and strength to at least 4+/5. LTG Duration 06/17/24 Three Impairment Low back pain and neck pain 5/ 10 on pain scale, interrupts sleep Nursing Home Goal (LTG) Reduce pain by at least 50% with patient to report not being wakened due to pain. 05/13/24: some goal progress, not fully met. LTG Duration 06/17/24 Two Impairment impaired activity tolerance as indicated by NDI and Oswestry questionaires Short Term Goal (STG) Patient to demonstrate at least 25% improvement in NDI and Oswestry scores 05/13/24: Goal progress : Oswestry 44%, NDI 34%. STG Duration 05/18/24 Nylon Winder Goal (LTG) Patient to improve in NDI and Oswestry scores to no greater than 25% as an indication of improved function and activity tolerance LTG Duration 06/17/24 One Impairment pain Assessment Summary Assessment Patient rates pain 2/10 back and neck end of session. Physical Therapy Plan Frequency and Duration Frequency of Treatment 2x/Week Duration of treatment (weeks) 8 Plan of Care Start Date 04/17/24 Plan of Care End Date 06/17/24 Next Visit Focus/Plan Next Note Type Progress Note Next Visit Plan Progress core stab, hip strengthening as tolerated.
--- NOTE | 2024-05-22 16:05 | PT.OTRE ---
Current Diagnoses Pain in right shoulder (05/22/24) Cervicalgia (05/22/24) Low back pain, unspecified (05/22/24) Past Medical History (Last Reviewed 03/11/24 @ 15:20 by Ulises Loyd MD) Anxiety (~2001) Asthma Basal cell carcinoma Bilateral medial epicondylitis of elbow joint (2004) Cataract, right eye (2013) Cervical spine pain (~2000) Chronic back pain (2004) Chronic headaches DVT (deep venous thrombosis) (2008) Essential hypertension Essential tremor Fibromyalgia (~2000) Foot pain, left (~2009) GERD (gastroesophageal reflux disease) (~2004) Major depressive disorder in partial remission Recurrent sinusitis (~1999) Right hip pain (2005) Shoulder pain Sleep apnea (~1999) Surgical History (Last Reviewed 03/11/24 @ 15:20 by Ulises Loyd MD) Anesthesia History of basal cell carcinoma (BCC) excision (06/14/11) History of gynecologic surgery History of open reduction and internal fixation (ORIF) procedure (09/30/15) History of right cataract surgery (2013) Visit Care Team Role Provider Type Ulises Loyd MD Attending Provider Physician Family Provider Primary Care Provider Referring Provider Specialty: Internal Medicine Address: [address] [place] [address], [facility] Email: [email or web address] Physical Therapy Re-Evaluation PT-OP-A Visit Information Start: 04/17/24 12:22 Freq: Status: Active Protocol: Document 05/22/24 11:35 SAK (Rec: 05/22/24 12:18 SAK Laptop) Out-Patient Physical Therapy Visit Information Visit Information Visit Type Treatment Note Visit Start Time 11:35 Visit Stop Time 12:20 Visit Number 10 Number of ROTARY VENEER MACHINE OPERATOR Visits 0 Precautions Precautions PMH: Basal cell carcinoma Essential hypertension Essential tremor Asthma Bilateral medial epicondylitis of elbow joint (2004) Sleep apnea (~1999) Anxiety (~2001) Chronic headaches Right hip pain (2006) Cervical spine pain (~2000) Shoulder pain Foot pain, left (~2009) Fibromyalgia (~2000) Chronic back pain (2003) Recurrent sinusitis (~1999) Cataract, right eye (2013) GERD (gastroesophageal reflux disease) (~2004) DVT (deep venous thrombosis) ( 2008) Major depressive disorder in partial remission Surgical History (Reviewed @ 15:20 by Ulises Loyd MD) History of right cataract surgery (2013) Anesthesia History of gynecologic surgery History of basal cell carcinoma (BCC) excision (02/24) History of open reduction and internal fixation (ORIF) procedure (09/30/15) PT-OP-B Current Condition Start: 04/17/24 12:22 Freq: Status: Active Protocol: Document 05/22/24 11:35 SAK (Rec: 05/22/24 12:18 SAK Laptop) Current Condition History of Current Condition Onset Date 6 months Current Complaints low back pain, chronic neck pain History of Current Condition gradual onset, worsening, no known reason. No imaging. Worse with prolonged sitting ( uses ice pack), alternates Tylenol and ADvil throughout the day and takes 1/2 ' s muscle relaxant to be able to sleep. Also reports lateral neck pain; chronic, also increased over the past 6months, using ice, heat, icy hot. No regular exercise except walking, states she found HEP from prior PT but reports made pain a little worse. Starts off sleeping on back, doesn't sleep on right side because makes neck pain worse, then goes to left side and stomache (head turned to left) Prior Treatments and Tests none Future Testing and Treatments Planned none PT-OP-C Subjective Start: 04/17/24 12:22 Freq: Status: Active Protocol: Document 05/22/24 11:35 SAK (Rec: 05/22/24 12:18 [facility] Laptop) OP-PT Subjective Patient Comments Patient Comments Was able to do yardwork without increase in pain, was down on knees. The pain and tightness in her neck doesn't wake her up at night. PT-OP-H Neuro Start: 04/17/24 12:22 Freq: Status: Active Protocol: Document 04/17/24 14:42 SAK (Rec: 04/18/24 12:11 [facility] [id number]) Sensation Evaluation Gross Sensation Gross Sensation WNL PT-OP-J Posture/Palpation/Skin Start: 04/17/24 12:22 Freq: Status: Active Protocol: Document 04/17/24 14:42 SAK (Rec: 04/18/24 12:11 [facility] [id number]) Posture Evaluation Position Standing Head/C-Spine Posture Forward Head T-Spine Posture Increased Kyphosis L-Spine Posture Flattened Shoulder Posture (L) Rounded,(R) Rounded Scapula Posture (L) Protracted,(R) Protracted Arm Posture (L) Internally Rotated,(R) Internally Rotated Pelvis Posture Posterior Tilted Weight Distribution Weight Shifted Left Palpation Assessment Location lumbar paraspinals Palpation Findings Soft Tissue Tightness, Tenderness c/s Palpation Location right SCM, UT, LS Palpation Findings Soft Tissue Tightness, Tenderness PT-OP-K Range of Motion Start: 04/17/24 12:22 Freq: Status: Active Protocol: Document 04/17/24 14:42 [facility] (Rec: 04/17/24 15:19 [facility] [id number]) Cervical Spine Range of Motion Cervical Spine Active Rotation Left 45 Rotation Right 60 Lateral Flexion Left 10 Lateral Flexion Right 20 ROM Limitations Soft Tissue Tightness,Pain Comments pain left rotation Lumbar Spine Range of Motion Lumbar Spine Active Flexion 45 Extension 10 Rotation Left 10 Rotation Right 20 Lateral Flexion Left 30 Lateral Flexion Right 35 ROM Limitations Soft Tissue Tightness,Pain Shoulder Goniometric Range of Motion Shoulder Measured in Degrees marti Shoulder ROM WFL Yes Hip Goniometric Range of Motion Hip Measured in Degrees Right Hip ROM WFL No Flexion w/Knee Flexed 120 Straight Leg Raise 50 Extension 0 Abduction 30 Internal Rotation 10 External Rotation 35 left Hip ROM WFL No Flexion w/Knee Flexed 120 Straight Leg Raise 55 Extension 0 Abduction 35 Internal Rotation 15 External Rotation 35 Hip ROM Limitations Hip ROM Limitations Soft Tissue Tightness Knee Goniometric Range of Motion Knee Measured in Degrees marti Knee ROM WFL Yes PT-OP-Q Treatments Start: 04/17/24 12:22 Freq: Status: Active Protocol: Document 05/22/24 11:35 [facility] (Rec: 05/22/24 12:18 [facility] Laptop) Cardio Equipment Recumbent Stepper (Sci-Fit) Duration (Minutes) 6 Resistance 3 Seat Position 9 Therapeutic Exercises Supine Exercises resisted hip flexion Supine Exercise Name possibly next session april with single leg lower Reps/Minutes 5x Comments cues for not letting l/s arch hip ab Equipment Used pillow case over LE Reps/Minutes 10x Comments VC to avoid toe out CSrotation on occ float Side bilateral Reps/Minutes 2 min to perform slowly in pain free range pec stretch Supine Exercise Name Goal post, chest stacker driver Side bilateral Reps/Minutes 5x , ~30 sec Comments cues for scapular setting chin retraction Supine Exercise Name chin tuck Equipment Used on occipital float Reps/Minutes 5 sec X 5 sec Sitting Exercises piriformis stretch Reps/Minutes 2x30 figure 4 stretch Reps/Minutes 2x30 seated hip abd with band Side bilateral Resistance level 2 band Reps/Minutes one minute X 10 Comments Verbal cues Standing Exercises side stepping Resistance none, L1TB Reps/Minutes 10 ft marti Comments ok with no resistance, pain with resistance Self-Care/Home Management Treatment Education Other Education instruction in use of tennis ball for self massage. weight shift with long spine and core activation with weeding. PT-OP-R Modalities Start: 04/17/24 12:22 Freq: Status: Active Protocol: Document 05/22/24 11:35 SAK (Rec: 05/22/24 16:04 SAK Laptop) Electric Stimulation Electric Stimulation Interferential Current (IFC) Body Location right c/s, UT, LS Intensity 8 Target/Sweep Sweep Patient Position Hooklying Combined With Heat/Cold Hot Pack PT-OP-T Assessment and Plan Start: 04/17/24 12:22 Freq: Status: Active Protocol: Document 05/22/24 11:35 SAK (Rec: 05/22/24 12:18 SAK Laptop) Physical Therapy Assessment Goals Four Impairment posture dysfunction with crossed syndrome of tight and weak musculature Short Term Goal (STG) Patient to be instructed in neutral posture and instructed in postural correction exercises 05/13/24: goal met STG Duration goal met Miniature Set Designer Goal (LTG) Patient to be independent and compliant with HEP and demonstrate improved postural alignment statically and dynamically with functional activities and improved ROM to WNL and strength to at least 4+/5. 05/22/24: goal progress LTG Duration 06/17/24 Three Impairment Low back pain and neck pain 5/ 10 on pain scale, interrupts sleep Miniature Set Designer Goal (LTG) Reduce pain by at least 50% with patient to report not being wakened due to pain. 05/13/24: some goal progress, not fully met. 05/23/23: goal met LTG Duration goal met Two Impairment impaired activity tolerance as indicated by NDI and Oswestry questionaires Short Term Goal (STG) Patient to demonstrate at least 25% improvement in NDI and Oswestry scores 05/13/24: Goal progress : Oswestry 44%, NDI 34%. 05/22/24: Pt. did not fill out today but indicating improvement especially in neck . STG Duration 05/18/24 Miniature Set Designer Goal (LTG) Patient to improve in NDI and Oswestry scores to no greater than 25% as an indication of improved function and activity tolerance LTG Duration 06/17/24 Progress Towards Goals Progress Towards Goals Progressing Toward Goals Assessment Summary Assessment Good progress toward goals, patient demonstrating improved postural awareness and indicating not waking due to pain anymore. Needs moderate cues for postural correction all ther ex. Trial IFES with moist heat today per patient request with good tolerance. Physical Therapy Plan Frequency and Duration Frequency of Treatment 2x/Week Duration of treatment (weeks) 8 Plan of Care Start Date 04/17/24 Plan of Care End Date 06/17/24 Therapeutic Interventions Therapeutic Interventions Home Exercise Program,Manual Therapy,Neuromuscular Re- education,Patient/Caregiver Education,Self-Care/Home Management,Soft Tissue Mobilization,Taping, Therapeutic Activities, Therapeutic Exercises Next Visit Focus/Plan Next Note Type Progress Note Next Visit Plan Continue postural correction, therapeutic exercises for posterior chain strengthening, modalities and manual therapy PRN.
--- NOTE | 2024-05-22 16:05 | PT.OPPOC ---
Physical, Occupational & Speech Therapy At [facility] Current Diagnoses Pain in right shoulder (05/22/24) Cervicalgia (05/22/24) Low back pain, unspecified (05/22/24) Visit Care Team Role Provider Type Ulises Loyd MD Attending Provider Physician Family Provider Primary Care Provider Referring Provider Specialty: Internal Medicine Address: [address] [place] [address], [address], [facility] Email: [email or web address] Plan Of Care PT-OP-B Current Condition Start: 04/17/24 12:22 Freq: Status: Active Protocol: Document 05/22/24 11:35 SAK (Rec: 05/22/24 12:18 SAK Laptop) Current Condition History of Current Condition Onset Date 6 months Current Complaints low back pain, chronic neck pain History of Current Condition gradual onset, worsening, no known reason. No imaging. Worse with prolonged sitting ( uses ice pack), alternates Tylenol and ADvil throughout the day and takes 1/2 ' s muscle relaxant to be able to sleep. Also reports lateral neck pain; chronic, also increased over the past 6months, using ice, heat, icy hot. No regular exercise except walking, states she found HEP from prior PT but reports made pain a little worse. Starts off sleeping on back, doesn't sleep on right side because makes neck pain worse, then goes to left side and stomache (head turned to left) Prior Treatments and Tests none Future Testing and Treatments Planned none PT-OP-T Assessment and Plan Start: 04/17/24 12:22 Freq: Status: Active Protocol: Document 05/22/24 11:35 SAK (Rec: 05/22/24 12:18 SAK Laptop) Physical Therapy Assessment Goals Four Impairment posture dysfunction with crossed syndrome of tight and weak musculature Short Term Goal (STG) Patient to be instructed in neutral posture and instructed in postural correction exercises 05/13/24: goal met STG Duration goal met Process Description Writer Goal (LTG) Patient to be independent and compliant with HEP and demonstrate improved postural alignment statically and dynamically with functional activities and improved ROM to WNL and strength to at least 4+/5. 05/22/24: goal progress LTG Duration 5/5/25 Three Impairment Low back pain and neck pain 5/ 10 on pain scale, interrupts sleep [facility] Goal (LTG) Reduce pain by at least 50% with patient to report not being wakened due to pain. 05/13/24: some goal progress, not fully met. 05/23/23: goal met LTG Duration goal met Two Impairment impaired activity tolerance as indicated by NDI and Oswestry questionaires Short Term Goal (STG) Patient to demonstrate at least 25% improvement in NDI and Oswestry scores 05/13/24: Goal progress : Oswestry 44%, NDI 34%. 05/22/24: Pt. did not fill out today but indicating improvement especially in neck . STG Duration 05/18/24 [facility] Goal (LTG) Patient to improve in NDI and Oswestry scores to no greater than 25% as an indication of improved function and activity tolerance LTG Duration 06/17/24 Progress Towards Goals Progress Towards Goals Progressing Toward Goals Assessment Summary Assessment Good progress toward goals, patient demonstrating improved postural awareness and indicating not waking due to pain anymore. Needs moderate cues for postural correction all ther ex. Trial IFES with moist heat today per patient request with good tolerance. Physical Therapy Plan Frequency and Duration Frequency of Treatment 2x/Week Duration of treatment (weeks) 8 Plan of Care Start Date 04/17/24 Plan of Care End Date 06/17/24 Therapeutic Interventions Therapeutic Interventions Home Exercise Program,Manual Therapy,Neuromuscular Re- education,Patient/Caregiver Education,Self-Care/Home Management,Soft Tissue Mobilization,Taping, Therapeutic Activities, Therapeutic Exercises Next Visit Focus/Plan Next Note Type Progress Note Next Visit Plan Continue postural correction, therapeutic exercises for posterior chain strengthening, modalities and manual therapy PRN. Plan of Care Dates Plan of Care Start Date 04/17/24 Plan of Care End Date 06/17/24 Electronically Signed by: Myra Rivera, PT 05/22/24 5919 If you are in agreement with this Plan of Care, please return a signed and dated copy. I have reviewed this Plan of Care and certify that the skilled therapy services above are required to meet the patient?s needs. Physician Signature Date Printed Name and Credentials Clinical Instructor Signature Printed Name and Credentials
--- NOTE | 2024-05-24 17:21 | PT.OTN ---
Current Diagnoses Pain in right shoulder (05/24/24) Cervicalgia (05/24/24) Low back pain, unspecified (05/24/24) Physical Therapy Treatment Note PT-OP-A Visit Information Start: 04/17/24 12:22 Freq: Status: Active Protocol: Document 05/24/24 13:15 AB (Rec: 05/24/24 14:50 AB Laptop) Out-Patient Physical Therapy Visit Information Visit Information Visit Type Treatment Note Visit Start Time 13:50 Visit Stop Time 14:47 Visit Number 11 Number of JUNIOR DESIGNER Visits 1 Precautions Precautions PMH: Basal cell carcinoma Essential hypertension Essential tremor Asthma Bilateral medial epicondylitis of elbow joint (2004) Sleep apnea (~1999) Anxiety (~2001) Chronic headaches Right hip pain (2005) Cervical spine pain (~1999) Shoulder pain Foot pain, left (~2009) Fibromyalgia (~1999) Chronic back pain (2003) Recurrent sinusitis (~1999) Cataract, right eye (2013) GERD (gastroesophageal reflux disease) (~2004) DVT (deep venous thrombosis) ( 2008) Major depressive disorder in partial remission Surgical History (Reviewed @ 15:20 by Ulises Loyd MD) History of right cataract surgery (2013) Anesthesia History of gynecologic surgery History of basal cell carcinoma (BCC) excision (02/24) History of open reduction and internal fixation (ORIF) procedure (09/30/15) PT-OP-B Current Condition Start: 04/17/24 12:22 Freq: Status: Active Protocol: Document 05/22/24 11:35 SAK (Rec: 05/22/24 12:18 SAK Laptop) Current Condition History of Current Condition Onset Date 6 months Current Complaints low back pain, chronic neck pain History of Current Condition gradual onset, worsening, no known reason. No imaging. Worse with prolonged sitting ( uses ice pack), alternates Tylenol and ADvil throughout the day and takes 1/2 ' s muscle relaxant to be able to sleep. Also reports lateral neck pain; chronic, also increased over the past 6months, using ice, heat, icy hot. No regular exercise except walking, states she found HEP from prior PT but reports made pain a little worse. Starts off sleeping on back, doesn't sleep on right side because makes neck pain worse, then goes to left side and stomache (head turned to left) Prior Treatments and Tests none Future Testing and Treatments Planned none PT-OP-C Subjective Start: 04/17/24 12:22 Freq: Status: Active Protocol: Document 05/24/24 13:15 AB (Rec: 05/24/24 14:50 AB Laptop) OP-PT Subjective Patient Comments Patient Comments Patient reports she is tired, went to [email or web address] yesterday, rates pain 4-5/10 R side back and hip. initiates sit to supine with a reverse sit up. Marjorie reports she thought she had another appointment, but realized today that she did not. Patient verbalizes she would like another appointment . PT-OP-H Neuro Start: 04/17/24 12:22 Freq: Status: Active Protocol: Document 04/17/24 14:42 SAK (Rec: 04/18/24 12:11 SAK [id number]) Sensation Evaluation Gross Sensation Gross Sensation WNL PT-OP-J Posture/Palpation/Skin Start: 04/17/24 12:22 Freq: Status: Active Protocol: Document 04/17/24 14:42 SAK (Rec: 04/18/24 12:11 SAK [id number]) Posture Evaluation Position Standing Head/C-Spine Posture Forward Head T-Spine Posture Increased Kyphosis L-Spine Posture Flattened Shoulder Posture (L) Rounded,(R) Rounded Scapula Posture (L) Protracted,(R) Protracted Arm Posture (L) Internally Rotated,(R) Internally Rotated Pelvis Posture Posterior Tilted Weight Distribution Weight Shifted Left Palpation Assessment Location lumbar paraspinals Palpation Findings Soft Tissue Tightness, Tenderness c/s Palpation Location right SCM, UT, LS Palpation Findings Soft Tissue Tightness, Tenderness PT-OP-K Range of Motion Start: 04/17/24 12:22 Freq: Status: Active Protocol: Document 04/17/24 14:42 SAK (Rec: 04/17/24 15:19 SAK [id number]) Cervical Spine Range of Motion Cervical Spine Active Rotation Left 45 Rotation Right 60 Lateral Flexion Left 10 Lateral Flexion Right 20 ROM Limitations Soft Tissue Tightness,Pain Comments pain left rotation Lumbar Spine Range of Motion Lumbar Spine Active Flexion 45 Extension 10 Rotation Left 10 Rotation Right 20 Lateral Flexion Left 30 Lateral Flexion Right 35 ROM Limitations Soft Tissue Tightness,Pain Shoulder Goniometric Range of Motion Shoulder marti Shoulder ROM WFL Yes Hip Goniometric Range of Motion Hip Right Hip ROM WFL No Flexion w/Knee Flexed 120 Straight Leg Raise 50 Extension 0 Abduction 30 Internal Rotation 10 External Rotation 35 left Hip ROM WFL No Flexion w/Knee Flexed 120 Straight Leg Raise 55 Extension 0 Abduction 35 Internal Rotation 15 External Rotation 35 Hip ROM Limitations Hip ROM Limitations Soft Tissue Tightness Knee Goniometric Range of Motion Knee marti Knee ROM WFL Yes PT-OP-Q Treatments Start: 04/17/24 12:22 Freq: Status: Active Protocol: Document 05/24/24 13:15 AB (Rec: 05/24/24 14:50 AB Laptop) Therapeutic Exercises Supine Exercises resisted hip flexion Reps/Minutes 15 seconds X 3 each side Comments verbal cues march with single leg lower Reps/Minutes 5x Comments cues for not letting l/s arch hip ab Equipment Used pillow case over LE Reps/Minutes x8 Comments VC to avoid toe out, repeated verbal cues hip stretches Supine Exercise Name 1. piriformis Reps/Minutes 60 sec X 1 each LE Comments verbal cues CSrotation on occ float Side bilateral Reps/Minutes 2 min to perform slowly in pain free range Manual Therapy Treatment Consent Patient gave verbal consent for manual Yes treatment Soft Tissue Mobilization right lumbar spine, hip Body Location B Lumbar paraspinals, glute/ piriformis area Mobilization Type Sustained Pressure Intensity/Depth Moderate Body Position Sidelying Manual Techniques MET for R AI L PI and pubic shotgun Reps/Duration 6 X 6 sec each PT-OP-R Modalities Start: 04/17/24 12:22 Freq: Status: Active Protocol: Document 05/24/24 13:15 AB (Rec: 05/24/24 14:50 AB Laptop) Electric Stimulation Electric Stimulation Interferential Current (IFC) Body Location right c/s, UT, LS Intensity 8 Target/Sweep Sweep Patient Position Hooklying Combined With Heat/Cold Hot Pack PT-OP-T Assessment and Plan Start: 04/17/24 12:22 Freq: Status: Active Protocol: Document 05/24/24 13:15 AB (Rec: 05/24/24 14:50 AB Laptop) Physical Therapy Assessment Goals Four Impairment posture dysfunction with crossed syndrome of tight and weak musculature Short Term Goal (STG) Patient to be instructed in neutral posture and instructed in postural correction exercises 05/13/24: goal met STG Duration goal met Usp Goal (LTG) Patient to be independent and compliant with HEP and demonstrate improved postural alignment statically and dynamically with functional activities and improved ROM to WNL and strength to at least 4+/5. 05/22/24: goal progress LTG Duration 06/17/24 Three Impairment Low back pain and neck pain 5/ 10 on pain scale, interrupts sleep Linoleum Floor Layer Goal (LTG) Reduce pain by at least 50% with patient to report not being wakened due to pain. 05/13/24: some goal progress, not fully met. 05/23/23: goal met LTG Duration goal met Two Impairment impaired activity tolerance as indicated by NDI and Oswestry questionaires Short Term Goal (STG) Patient to demonstrate at least 25% improvement in NDI and Oswestry scores 05/13/24: Goal progress : Oswestry 44%, NDI 34%. 05/22/24: Pt. did not fill out today but indicating improvement especially in neck . STG Duration 05/18/24 Usp Goal (LTG) Patient to improve in NDI and Oswestry scores to no greater than 25% as an indication of improved function and activity tolerance LTG Duration 06/17/24 One Impairment pain Assessment Summary Assessment No complaints of pain during exercises this session. Patient request treatment with tens unit used previous session end of this session, commenting that it helped. Patient into session commenting she thought she had another appointment with PT, and does want another appointment. Patient given paper for scheduling. Physical Therapy Plan Frequency and Duration Frequency of Treatment 2x/Week Duration of treatment (weeks) 8 Plan of Care Start Date 04/17/24 Plan of Care End Date 06/17/24 Next Visit Focus/Plan Next Note Type Treatment Note Next Visit Plan Continue postural correction, therapeutic exercises for posterior chain strengthening, modalities and manual therapy PRN.
--- NOTE | 2024-05-29 12:31 | PT.OTN ---
Current Diagnoses Pain in right shoulder (05/29/24) Cervicalgia (05/29/24) Low back pain, unspecified (05/29/24) Physical Therapy Treatment Note PT-OP-A Visit Information Start: 04/17/24 12:22 Freq: Status: Active Protocol: Document 05/29/24 11:35 AB (Rec: 05/29/24 12:31 AB Laptop) Out-Patient Physical Therapy Visit Information Visit Information Visit Type Treatment Note Visit Start Time 11:35 Visit Stop Time 12:28 Visit Number 12 Number of AMMUNITION STOREKEEPER Visits 2 Precautions Precautions PMH: Basal cell carcinoma Essential hypertension Essential tremor Asthma Bilateral medial epicondylitis of elbow joint (2004) Sleep apnea (~1999) Anxiety (~2001) Chronic headaches Right hip pain (2005) Cervical spine pain (~1999) Shoulder pain Foot pain, left (~2009) Fibromyalgia (~1999) Chronic back pain (2003) Recurrent sinusitis (~1999) Cataract, right eye (2013) GERD (gastroesophageal reflux disease) (~2004) DVT (deep venous thrombosis) ( 2008) Major depressive disorder in partial remission Surgical History (Reviewed @ 15:20 by Ulises Loyd MD) History of right cataract surgery (2013) Anesthesia History of gynecologic surgery History of basal cell carcinoma (BCC) excision (02/24) History of open reduction and internal fixation (ORIF) procedure (09/30/15) PT-OP-B Current Condition Start: 04/17/24 12:22 Freq: Status: Active Protocol: Document 05/22/24 11:35 SAK (Rec: 05/22/24 12:18 SAK Laptop) Current Condition History of Current Condition Onset Date 6 months Current Complaints low back pain, chronic neck pain History of Current Condition gradual onset, worsening, no known reason. No imaging. Worse with prolonged sitting ( uses ice pack), alternates Tylenol and ADvil throughout the day and takes 1/2 ' s muscle relaxant to be able to sleep. Also reports lateral neck pain; chronic, also increased over the past 6months, using ice, heat, icy hot. No regular exercise except walking, states she found HEP from prior PT but reports made pain a little worse. Starts off sleeping on back, doesn't sleep on right side because makes neck pain worse, then goes to left side and stomache (head turned to left) Prior Treatments and Tests none Future Testing and Treatments Planned none PT-OP-C Subjective Start: 04/17/24 12:22 Freq: Status: Active Protocol: Document 05/29/24 11:35 AB (Rec: 05/29/24 12:31 AB Laptop) OP-PT Subjective Patient Comments Patient Comments Marjorie rates back pain 3-4/10 start of session attribute to driving to [place] and sitting doing taxes, also reports mowing the lawn the day before yesterday, comments she is tired. PT-OP-H Neuro Start: 04/17/24 12:22 Freq: Status: Active Protocol: Document 04/17/24 14:42 SAK (Rec: 04/18/24 12:11 SAK [id number]) Sensation Evaluation Gross Sensation Gross Sensation WNL PT-OP-J Posture/Palpation/Skin Start: 04/17/24 12:22 Freq: Status: Active Protocol: Document 04/17/24 14:42 SAK (Rec: 04/18/24 12:11 SAK [id number]) Posture Evaluation Position Standing Head/C-Spine Posture Forward Head T-Spine Posture Increased Kyphosis L-Spine Posture Flattened Shoulder Posture (L) Rounded,(R) Rounded Scapula Posture (L) Protracted,(R) Protracted Arm Posture (L) Internally Rotated,(R) Internally Rotated Pelvis Posture Posterior Tilted Weight Distribution Weight Shifted Left Palpation Assessment Location lumbar paraspinals Palpation Findings Soft Tissue Tightness, Tenderness c/s Palpation Location right SCM, UT, LS Palpation Findings Soft Tissue Tightness, Tenderness PT-OP-K Range of Motion Start: 04/17/24 12:22 Freq: Status: Active Protocol: Document 04/17/24 14:42 SAK (Rec: 04/17/24 15:19 SAK [id number]) Cervical Spine Range of Motion Cervical Spine Active Rotation Left 45 Rotation Right 60 Lateral Flexion Left 10 Lateral Flexion Right 20 ROM Limitations Soft Tissue Tightness,Pain Comments pain left rotation Lumbar Spine Range of Motion Lumbar Spine Active Flexion 45 Extension 10 Rotation Left 10 Rotation Right 20 Lateral Flexion Left 30 Lateral Flexion Right 35 ROM Limitations Soft Tissue Tightness,Pain Shoulder Goniometric Range of Motion Shoulder marti Shoulder ROM WFL Yes Hip Goniometric Range of Motion Hip Right Hip ROM WFL No Flexion w/Knee Flexed 120 Straight Leg Raise 50 Extension 0 Abduction 30 Internal Rotation 10 External Rotation 35 left Hip ROM WFL No Flexion w/Knee Flexed 120 Straight Leg Raise 55 Extension 0 Abduction 35 Internal Rotation 15 External Rotation 35 Hip ROM Limitations Hip ROM Limitations Soft Tissue Tightness Knee Goniometric Range of Motion Knee marti Knee ROM WFL Yes PT-OP-Q Treatments Start: 04/17/24 12:22 Freq: Status: Active Protocol: Document 05/29/24 11:35 AB (Rec: 05/29/24 12:31 AB Laptop) Therapeutic Exercises Sitting Exercises core warm up Sitting Exercise Name shoulder flexion and seated trunk rotation Reps/Minutes X 5 X 5 each Comments verbal and visual cues Other Exercises modified Kraus big 3 Other Exercise Name 1. chin tuck with head lift 2. short sit unable to side plank mod)3. quad* Reps/Minutes *counter plank UE/ LE lift - - each X 5 each side Comments Verbal and visual cues Therapeutic Activity Therapeutic Activity posture check Name posture check Comments VC to to chin tuck and scap retract 10% then to hold position when stepping away from wall, VC to resume UE swing. Performed X 2 Manual Therapy Treatment Consent Patient gave verbal consent for manual Yes treatment Soft Tissue Mobilization shoulder Body Location R>L UT, LS, B pec, B scalenes at clavicle lateral Mobilization Type Rolling,Strumming,Sustained Pressure Intensity/Depth Moderate Body Position Hooklying Comments and seated Manual Techniques MET for R AI L PI and pubic shotgun Reps/Duration 6X 6 each ( seated modification this session ) PT-OP-R Modalities Start: 04/17/24 12:22 Freq: Status: Active Protocol: Document 05/29/24 11:35 AB (Rec: 05/29/24 12:31 AB Laptop) Electric Stimulation Electric Stimulation Interferential Current (IFC) Body Location right c/s, UT, LS Intensity 12 Target/Sweep Sweep Patient Position Hooklying Combined With Heat/Cold Hot Pack PT-OP-T Assessment and Plan Start: 04/17/24 12:22 Freq: Status: Active Protocol: Document 05/29/24 11:35 AB (Rec: 05/29/24 12:31 AB Laptop) Physical Therapy Assessment Goals Four Impairment posture dysfunction with crossed syndrome of tight and weak musculature Short Term Goal (STG) Patient to be instructed in neutral posture and instructed in postural correction exercises 05/13/24: goal met STG Duration goal met Bucket Wash Operator Goal (LTG) Patient to be independent and compliant with HEP and demonstrate improved postural alignment statically and dynamically with functional activities and improved ROM to WNL and strength to at least 4+/5. 05/22/24: goal progress LTG Duration 06/17/24 Three Impairment Low back pain and neck pain 5/ 10 on pain scale, interrupts sleep Skilled Nursing Goal (LTG) Reduce pain by at least 50% with patient to report not being wakened due to pain. 05/13/24: some goal progress, not fully met. 05/23/23: goal met LTG Duration goal met Two Impairment impaired activity tolerance as indicated by NDI and Oswestry questionaires Short Term Goal (STG) Patient to demonstrate at least 25% improvement in NDI and Oswestry scores 05/13/24: Goal progress : Oswestry 44%, NDI 34%. 05/22/24: Pt. did not fill out today but indicating improvement especially in neck . STG Duration 05/18/24 Bucket Wash Operator Goal (LTG) Patient to improve in NDI and Oswestry scores to no greater than 25% as an indication of improved function and activity tolerance LTG Duration 06/17/24 One Impairment pain Assessment Summary Assessment Good return demonstration for holding posture and adding UE swing when stepping away from wall. Marjorie into session with R neck pain, but comments it is much better than when she started physical therapy. Physical Therapy Plan Frequency and Duration Frequency of Treatment 2x/Week Duration of treatment (weeks) 8 Plan of Care Start Date 04/17/24 Plan of Care End Date 06/17/24 Therapeutic Interventions Therapeutic Interventions Home Exercise Program,Manual Therapy,Neuromuscular Re- education,Patient/Caregiver Education,Self-Care/Home Management,Soft Tissue Mobilization,Taping, Therapeutic Activities, Therapeutic Exercises Next Visit Focus/Plan Next Note Type Treatment Note Next Visit Plan Continue postural correction, therapeutic exercises for posterior chain strengthening, modalities and manual therapy PRN. [id number]
--- NOTE | 2024-06-05 16:37 | PT.OTN ---
Current Diagnoses Pain in right shoulder (06/05/24) Cervicalgia (06/05/24) Low back pain, unspecified (06/05/24) Physical Therapy Treatment Note PT-OP-A Visit Information Start: 04/17/24 12:22 Freq: Status: Active Protocol: Document 06/05/24 10:49 NBM (Rec: 06/05/24 10:51 NBM Laptop) Out-Patient Physical Therapy Visit Information Visit Information Visit Type Treatment Note Visit Start Time 10:49 Visit Stop Time 11:44 Visit Number 13 Number of RESEARCH MANAGEMENT ASSOCIATE Visits 3 Precautions Precautions PMH: Basal cell carcinoma Essential hypertension Essential tremor Asthma Bilateral medial epicondylitis of elbow joint (2004) Sleep apnea (~1999) Anxiety (~2001) Chronic headaches Right hip pain (2005) Cervical spine pain (~1999) Shoulder pain Foot pain, left (~2009) Fibromyalgia (~1999) Chronic back pain (2003) Recurrent sinusitis (~1999) Cataract, right eye (2013) GERD (gastroesophageal reflux disease) (~2004) DVT (deep venous thrombosis) ( 2008) Major depressive disorder in partial remission Surgical History (Reviewed @ 15:20 by Ulises Loyd MD) History of right cataract surgery (2013) Anesthesia History of gynecologic surgery History of basal cell carcinoma (BCC) excision (02/24) History of open reduction and internal fixation (ORIF) procedure (09/30/15) PT-OP-B Current Condition Start: 04/17/24 12:22 Freq: Status: Active Protocol: Document 05/22/24 11:35 SAK (Rec: 05/22/24 12:18 SAK Laptop) Current Condition History of Current Condition Onset Date 6 months Current Complaints low back pain, chronic neck pain History of Current Condition gradual onset, worsening, no known reason. No imaging. Worse with prolonged sitting ( uses ice pack), alternates Tylenol and ADvil throughout the day and takes 1/2 ' s muscle relaxant to be able to sleep. Also reports lateral neck pain; chronic, also increased over the past 6months, using ice, heat, icy hot. No regular exercise except walking, states she found HEP from prior PT but reports made pain a little worse. Starts off sleeping on back, doesn't sleep on right side because makes neck pain worse, then goes to left side and stomache (head turned to left) Prior Treatments and Tests none Future Testing and Treatments Planned none PT-OP-C Subjective Start: 04/17/24 12:22 Freq: Status: Active Protocol: Document 06/05/24 10:49 NBM (Rec: 06/05/24 10:51 NBM Laptop) OP-PT Subjective Patient Comments Patient Comments Marjorie reports her only trouble now with pain is when driving long distances. Her grandson does exercises with her. PT-OP-H Neuro Start: 04/17/24 12:22 Freq: Status: Active Protocol: Document 04/17/24 14:42 SAK (Rec: 04/18/24 12:11 [facility] [id number]) Sensation Evaluation Gross Sensation Gross Sensation WNL PT-OP-J Posture/Palpation/Skin Start: 04/17/24 12:22 Freq: Status: Active Protocol: Document 04/17/24 14:42 SAK (Rec: 04/18/24 12:11 [facility] [id number]) Posture Evaluation Position Standing Head/C-Spine Posture Forward Head T-Spine Posture Increased Kyphosis L-Spine Posture Flattened Shoulder Posture (L) Rounded,(R) Rounded Scapula Posture (L) Protracted,(R) Protracted Arm Posture (L) Internally Rotated,(R) Internally Rotated Pelvis Posture Posterior Tilted Weight Distribution Weight Shifted Left Palpation Assessment Location lumbar paraspinals Palpation Findings Soft Tissue Tightness, Tenderness c/s Palpation Location right SCM, UT, LS Palpation Findings Soft Tissue Tightness, Tenderness PT-OP-K Range of Motion Start: 04/17/24 12:22 Freq: Status: Active Protocol: Document 04/17/24 14:42 SAK (Rec: 04/17/24 15:19 [facility] [id number]) Cervical Spine Range of Motion Cervical Spine Active Rotation Left 45 Rotation Right 60 Lateral Flexion Left 10 Lateral Flexion Right 20 ROM Limitations Soft Tissue Tightness,Pain Comments pain left rotation Lumbar Spine Range of Motion Lumbar Spine Active Flexion 45 Extension 10 Rotation Left 10 Rotation Right 20 Lateral Flexion Left 30 Lateral Flexion Right 35 ROM Limitations Soft Tissue Tightness,Pain Shoulder Goniometric Range of Motion Shoulder marti Shoulder ROM WFL Yes Hip Goniometric Range of Motion Hip Right Hip ROM WFL No Flexion w/Knee Flexed 120 Straight Leg Raise 50 Extension 0 Abduction 30 Internal Rotation 10 External Rotation 35 left Hip ROM WFL No Flexion w/Knee Flexed 120 Straight Leg Raise 55 Extension 0 Abduction 35 Internal Rotation 15 External Rotation 35 Hip ROM Limitations Hip ROM Limitations Soft Tissue Tightness Knee Goniometric Range of Motion Knee marti Knee ROM WFL Yes PT-OP-Q Treatments Start: 04/17/24 12:22 Freq: Status: Active Protocol: Document 06/05/24 10:49 NBM (Rec: 06/05/24 11:36 NBM Laptop) Therapeutic Exercises Supine Exercises bridging Supine Exercise Name HEP review Reps/Minutes x10 Comments no change from baseline symptoms march with single leg lower Supine Exercise Name HEP review Side bilateral Reps/Minutes 10x Comments cues for not letting l/s arch, breathwork (blow on knee) LTR Supine Exercise Name HEP review Reps/Minutes x10 Comments cues for core activation, PPT breathwork Sidelying Exercises hip ab Sidelying Exercise Name SLR, slight hip ext Reps/Minutes 10x ea Comments challenging, cues for maintaining knee ext clamshell Sidelying Exercise Name clamshell and reverse clamshell Side bilateral Reps/Minutes X8 ea Comments vc for eccentric control and DF open book Side bilateral Reps/Minutes X8 Comments cues for scapular setting, head follows hand Sitting Exercises piriformis stretch Sitting Exercise Name knee to opp shoulder (HEP review) Reps/Minutes 2x30 figure 4 stretch Reps/Minutes 2x30 Other Exercises Desk stretch hand out 12 exercises Other Exercise Name verbal review with consideration for using seated in car Side bilateral Reps/Minutes 12 exercises 3-10 sec holds Comments verbal and visual cues Self-Care/Home Management Treatment Education Other Education Discussion and instruction of seated PPT and desk stretches for use in car for long car rides, and resetting tall sitting posture when sitting for long periods like car rides and at desk. PT-OP-R Modalities Start: 04/17/24 12:22 Freq: Status: Active Protocol: Document 06/05/24 10:49 NBM (Rec: 06/05/24 11:36 NBM Laptop) Electric Stimulation Electric Stimulation Interferential Current (IFC) Body Location right c/s, UT, LS Intensity 13 Target/Sweep Sweep Patient Position Hooklying Combined With Heat/Cold Hot Pack Comments 15 min PT-OP-T Assessment and Plan Start: 04/17/24 12:22 Freq: Status: Active Protocol: Document 06/05/24 10:49 NBM (Rec: 06/05/24 10:51 NBM Laptop) Physical Therapy Assessment Goals Four Impairment posture dysfunction with crossed syndrome of tight and weak musculature Short Term Goal (STG) Patient to be instructed in neutral posture and instructed in postural correction exercises 05/13/24: goal met STG Duration goal met Custodial Goal (LTG) Patient to be independent and compliant with HEP and demonstrate improved postural alignment statically and dynamically with functional activities and improved ROM to WNL and strength to at least 4+/5. 05/22/24: goal progress LTG Duration 06/17/24 Three Impairment Low back pain and neck pain 5/ 10 on pain scale, interrupts sleep Custodial Goal (LTG) Reduce pain by at least 50% with patient to report not being wakened due to pain. 05/13/24: some goal progress, not fully met. 05/23/23: goal met LTG Duration goal met Two Impairment impaired activity tolerance as indicated by NDI and Oswestry questionaires Short Term Goal (STG) Patient to demonstrate at least 25% improvement in NDI and Oswestry scores 05/13/24: Goal progress : Oswestry 44%, NDI 34%. 05/22/24: Pt. did not fill out today but indicating improvement especially in neck . STG Duration 05/18/24 Promotions Executive Goal (LTG) Patient to improve in NDI and Oswestry scores to no greater than 25% as an indication of improved function and activity tolerance LTG Duration 06/17/24 One Impairment pain Assessment Summary Assessment Marjorie anticipates possible discharge from PT following next visit. Treatment focus on HEP review and pain management for sitting for long periods, such as in car. She is instructed in resetting tall sitting posture and using PPT and seated desk stretches as appropriate during periods of extended sitting. She requires cues to use Transverse abdominis m. and PPT for supine exercises and to avoid breathholding, and she demos improved awareness and form throughout session. Physical Therapy Plan Frequency and Duration Frequency of Treatment 2x/Week Duration of treatment (weeks) 8 Plan of Care Start Date 04/17/24 Plan of Care End Date 06/17/24 Therapeutic Interventions Therapeutic Interventions Home Exercise Program,Manual Therapy,Neuromuscular Re- education,Patient/Caregiver Education,Self-Care/Home Management,Soft Tissue Mobilization,Taping, Therapeutic Activities, Therapeutic Exercises Next Visit Focus/Plan Next Note Type Treatment Note Next Visit Plan Continue postural correction, therapeutic exercises for posterior chain strengthening, modalities and manual therapy PRN.
--- NOTE | 2024-06-13 16:52 | PT.OTN ---
Current Diagnoses Pain in right shoulder (06/13/24) Cervicalgia (06/13/24) Low back pain, unspecified (06/13/24) Physical Therapy Treatment Note PT-OP-A Visit Information Start: 04/17/24 12:22 Freq: Status: Active Protocol: Document 06/13/24 13:02 AB (Rec: 06/13/24 13:47 AB Laptop) Out-Patient Physical Therapy Visit Information Visit Information Visit Type Treatment Note Visit Start Time 13:03 Visit Stop Time 13:58 Visit Number 14 Number of B[employer]ENDERS SUPERVISOR Visits 4 Precautions Precautions PMH: Basal cell carcinoma Essential hypertension Essential tremor Asthma Bilateral medial epicondylitis of elbow joint (2004) Sleep apnea (~1999) Anxiety (~2001) Chronic headaches Right hip pain (2005) Cervical spine pain (~1999) Shoulder pain Foot pain, left (~2009) Fibromyalgia (~1999) Chronic back pain (2003) Recurrent sinusitis (~1999) Cataract, right eye (2013) GERD (gastroesophageal reflux disease) (~2004) DVT (deep venous thrombosis) ( 2008) Major depressive disorder in partial remission Surgical History (Reviewed @ 15:20 by Ulises Loyd MD) History of right cataract surgery (2013) Anesthesia History of gynecologic surgery History of basal cell carcinoma (BCC) excision (02/24) History of open reduction and internal fixation (ORIF) procedure (09/30/15) PT-OP-B Current Condition Start: 04/17/24 12:22 Freq: Status: Active Protocol: Document 05/22/24 11:35 SAK (Rec: 05/22/24 12:18 SAK Laptop) Current Condition History of Current Condition Onset Date 6 months Current Complaints low back pain, chronic neck pain History of Current Condition gradual onset, worsening, no known reason. No imaging. Worse with prolonged sitting ( uses ice pack), alternates Tylenol and ADvil throughout the day and takes 1/2 ' s muscle relaxant to be able to sleep. Also reports lateral neck pain; chronic, also increased over the past 6months, using ice, heat, icy hot. No regular exercise except walking, states she found HEP from prior PT but reports made pain a little worse. Starts off sleeping on back, doesn't sleep on right side because makes neck pain worse, then goes to left side and stomache (head turned to left) Prior Treatments and Tests none Future Testing and Treatments Planned none PT-OP-C Subjective Start: 04/17/24 12:22 Freq: Status: Active Protocol: Document 06/13/24 13:02 AB (Rec: 06/13/24 13:47 AB Laptop) OP-PT Subjective Patient Comments Patient Comments Marjorie reports she has been attending classes at [facility]. Patient reports low back pain is 3/10 start of session. Marjorie rates pain up to 4/10 with shoveling, comments driving bothers more than it used to. Patient reports this is her last session, has increased her activities, and will always have a certain level of pain. Patient comments this has gotten her started. Patient rates neck pain 2/10 start of session. PT-OP-H Neuro Start: 04/17/24 12:22 Freq: Status: Active Protocol: Document 04/17/24 14:42 SAK (Rec: 04/18/24 12:11 SAK [id number]) Sensation Evaluation Gross Sensation Gross Sensation WNL PT-OP-J Posture/Palpation/Skin Start: 04/17/24 12:22 Freq: Status: Active Protocol: Document 04/17/24 14:42 SAK (Rec: 04/18/24 12:11 SAK [id number]) Posture Evaluation Position Standing Head/C-Spine Posture Forward Head T-Spine Posture Increased Kyphosis L-Spine Posture Flattened Shoulder Posture (L) Rounded,(R) Rounded Scapula Posture (L) Protracted,(R) Protracted Arm Posture (L) Internally Rotated,(R) Internally Rotated Pelvis Posture Posterior Tilted Weight Distribution Weight Shifted Left Palpation Assessment Location lumbar paraspinals Palpation Findings Soft Tissue Tightness, Tenderness c/s Palpation Location right SCM, UT, LS Palpation Findings Soft Tissue Tightness, Tenderness PT-OP-K Range of Motion Start: 04/17/24 12:22 Freq: Status: Active Protocol: Document 06/13/24 13:02 AB (Rec: 06/13/24 16:48 AB Laptop) Cervical Spine Range of Motion Cervical Spine Active Testing Position Sitting Flexion 34 Rotation Left 75 Rotation Right 80 Lateral Flexion Left 23 Lateral Flexion Right 25 Comments deg Lumbar Spine Range of Motion Lumbar Spine Active Testing Position Standing Flexion 75 Extension 20 Rotation Left 40 Rotation Right 45 Lateral Flexion Left 70 Lateral Flexion Right 70 Comments % PT-OP-M Strength Start: 04/17/24 12:22 Freq: Status: Active Protocol: Document 06/13/24 13:02 AB (Rec: 06/13/24 16:48 AB Laptop) Cervical Spine Strength Cervical Spine Manual Muscle Testing Comments deep neck flexor chin tuck and raise, able to hold 4 seconds Trunk Strength Trunk Manual Muscle Testing Testing Position Supine Core Stabilization Hooklying sit up unable to clear inferior angle of scapula from mat PT-OP-Q Treatments Start: 04/17/24 12:22 Freq: Status: Active Protocol: Document 06/13/24 13:02 AB (Rec: 06/13/24 13:47 AB Laptop) Therapeutic Exercises Supine Exercises hip stretches Supine Exercise Name 1. piriformis Reps/Minutes 60 sec X 1 each LE Comments verbal cues CSrotation on occ float Side bilateral Reps/Minutes 2 min to perform slowly in pain free range Standing Exercises ROM and strength testing Standing Exercise Name core and CS Manual Therapy Treatment Consent Patient gave verbal consent for manual Yes treatment Soft Tissue Mobilization right lumbar spine, hip Body Location piriformis/glute bilateral Mobilization Type Cross-Friction,Strumming Intensity/Depth Moderate Body Position Sidelying cervical Body Location R Scalenes, B paraspinals, UT /levator scap Mobilization Type Cross-Friction,Rolling, Sustained Pressure Intensity/Depth Moderate Body Position Sidelying Manual Techniques MET for R AI L PI and pubic shotgun Reps/Duration 6X 6 each ( seated modification this session ) PT-OP-R Modalities Start: 04/17/24 12:22 Freq: Status: Active Protocol: Document 06/13/24 13:02 AB (Rec: 06/13/24 13:47 AB Laptop) Electric Stimulation Electric Stimulation Interferential Current (IFC) Body Location R UT Intensity 9 Target/Sweep Sweep Patient Position Sitting Combined With Heat/Cold Hot Pack Comments good feedback results, almost no pain, tightness. PT-OP-T Assessment and Plan Start: 04/17/24 12:22 Freq: Status: Active Protocol: Document 06/13/24 13:02 AB (Rec: 06/13/24 13:47 AB Laptop) Physical Therapy Assessment Goals Four Impairment posture dysfunction with crossed syndrome of tight and weak musculature Short Term Goal (STG) Patient to be instructed in neutral posture and instructed in postural correction exercises 05/13/24: goal met STG Duration goal met Dumbwaiter Operator Goal (LTG) Patient to be independent and compliant with HEP and demonstrate improved postural alignment statically and dynamically with functional activities and improved ROM to WNL and strength to at least 4+/5. 05/22/24: goal progress LTG Duration 06/17/24 Three Impairment Low back pain and neck pain 5/ 10 on pain scale, interrupts sleep Half-Way Goal (LTG) Reduce pain by at least 50% with patient to report not being wakened due to pain. 05/13/24: some goal progress, not fully met. 05/23/23: goal met LTG Duration goal met Two Impairment impaired activity tolerance as indicated by NDI and Oswestry questionaires Short Term Goal (STG) Patient to demonstrate at least 25% improvement in NDI and Oswestry scores 05/13/24: Goal progress : Oswestry 44%, NDI 34%. 05/22/24: Pt. did not fill out today but indicating improvement especially in neck . STG Duration 05/18/24 Half-Way Goal (LTG) Patient to improve in NDI and Oswestry scores to no greater than 25% as an indication of improved function and activity tolerance LTG Duration 06/17/24 One Impairment pain Assessment Summary Assessment Marjorie reports she is ready to be discharged is doing more. Increased CS ROM rotation should allow Marjorie to scan for traffic with decreased difficulty. Core and CS muscle strength continues to be a problem, but Jenelle is now performing more activities, and comments she needs to remain more active next winter . Physical Therapy Plan Frequency and Duration Frequency of Treatment 2x/Week Duration of treatment (weeks) 8 Plan of Care Start Date 04/17/24 Plan of Care End Date 06/17/24 Next Visit Focus/Plan Next Note Type Discharge Summary
--- NOTE | 2024-09-05 14:04 | PT.OPDS ---
Current Diagnoses Pain in right shoulder (06/13/24) Cervicalgia (06/13/24) Low back pain, unspecified (06/13/24) Visit Care Team Role Provider Type Ulises Loyd MD Attending Provider Physician Family Provider Primary Care Provider Referring Provider Specialty: Internal Medicine Address: [address] [place] [address], [address], [place], [address] Email: [email or web address] Visit Number Visit Number 14 Discharge Summary PT-OP-B Current Condition Start: 04/17/24 12:22 Freq: Status: Active Protocol: Document 05/22/24 11:35 SAK (Rec: 05/22/24 12:18 SAK Laptop) Current Condition History of Current Condition Onset Date 6 months Current Complaints low back pain, chronic neck pain History of Current gradual onset, worsening, no known reason. No imaging. Condition Worse with prolonged sitting (uses ice pack), alternates Tylenol and ADvil throughout the day and takes 1/2 's muscle relaxant to be able to sleep . Also reports lateral neck pain; chronic, also increased over the past 6months, using ice, heat, icy hot. No regular exercise except walking, states she found HEP from prior PT but reports made pain a little worse. Starts off sleeping on back, doesn't sleep on right side because makes neck pain worse, then goes to left side and stomache (head turned to left) Prior Treatments and none Tests Future Testing and none Treatments Planned PT-OP-C Subjective Start: 04/17/24 12:22 Freq: Status: Active Protocol: Document 06/13/24 13:02 AB (Rec: 06/13/24 13:47 AB Laptop) OP-PT Subjective Patient Comments Patient Comments Marjorie reports she has been attending classes at [facility]. Patient reports low back pain is 3/10 start of session. Marjorie rates pain up to 4/10 with shoveling, comments driving bothers more than it used to. Patient reports this is her last session, has increased her activities, and will always have a certain level of pain. Patient comments this has gotten her started. Patient rates neck pain 2/10 start of session. PT-OP-H Neuro Start: 04/17/24 12:22 Freq: Status: Active Protocol: Document 04/17/24 14:42 SAK (Rec: 04/18/24 12:11 SAK [id number]) Sensation Evaluation Gross Sensation Gross Sensation WNL PT-OP-J Posture/Palpation/Skin Start: 04/17/24 12:22 Freq: Status: Active Protocol: Document 04/17/24 14:42 SAK (Rec: 04/18/24 12:11 SAK [id number]) Posture Evaluation Position Standing Head/C-Spine Posture Forward Head T-Spine Posture Increased Kyphosis L-Spine Posture Flattened Shoulder Posture (L) Rounded,(R) Rounded Scapula Posture (L) Protracted,(R) Protracted Arm Posture (L) Internally Rotated,(R) Internally Rotated Pelvis Posture Posterior Tilted Weight Distribution Weight Shifted Left Palpation Assessment Location lumbar paraspinals Palpation Findings Soft Tissue Tightness,Tenderness c/s Palpation Location right SCM, UT, LS Palpation Findings Soft Tissue Tightness,Tenderness PT-OP-K Range of Motion Start: 04/17/24 12:22 Freq: Status: Active Protocol: Document 06/13/24 13:02 AB (Rec: 06/13/24 16:48 AB Laptop) Cervical Spine Range of Motion Cervical Spine Active Testing Position Sitting Flexion 34 Rotation Left 75 Rotation Right 80 Lateral Flexion Left 23 Lateral Flexion 25 Right Comments deg Lumbar Spine Range of Motion Lumbar Spine Active Testing Position Standing Flexion 75 Extension 20 Rotation Left 40 Rotation Right 45 Lateral Flexion Left 70 Lateral Flexion 70 Right Comments % PT-OP-M Strength Start: 04/17/24 12:22 Freq: Status: Active Protocol: Document 06/13/24 13:02 AB (Rec: 06/13/24 16:48 AB Laptop) Cervical Spine Strength Cervical Spine Manual Muscle Testing Comments deep neck flexor chin tuck and raise, able to hold 4 seconds Trunk Strength Trunk Manual Muscle Testing Testing Position Supine Core Stabilization Hooklying sit up unable to clear inferior angle of scapula from mat PT-OP-T Assessment and Plan Start: 04/17/24 12:22 Freq: Status: Active Protocol: Document 06/13/24 13:02 AB (Rec: 06/13/24 13:47 AB Laptop) Physical Therapy Assessment Goals Four Impairment posture dysfunction with crossed syndrome of tight and weak musculature Short Term Goal (STG Patient to be instructed in neutral posture and ) instructed in postural correction exercises 05/13/24: goal met STG Duration goal met Mcfp Goal (LTG) Patient to be independent and compliant with HEP and demonstrate improved postural alignment statically and dynamically with functional activities and improved ROM to WNL and strength to at least 4+/5. 05/22/24: goal progress LTG Duration 06/17/24 Three Impairment Low back pain and neck pain 5/10 on pain scale, interrupts sleep Clinic Lead Goal (LTG) Reduce pain by at least 50% with patient to report not being wakened due to pain. 05/13/24: some goal progress, not fully met. 05/23/23: goal met LTG Duration goal met Two Impairment impaired activity tolerance as indicated by NDI and Oswestry questionaires Short Term Goal (STG Patient to demonstrate at least 25% improvement in NDI ) and Oswestry scores 05/13/24: Goal progress : Oswestry 44%, NDI 34%. 05/22/24: Pt. did not fill out today but indicating improvement especially in neck. STG Duration 05/18/24 Mcfp Goal (LTG) Patient to improve in NDI and Oswestry scores to no greater than 25% as an indication of improved function and activity tolerance LTG Duration 06/17/24 One Impairment pain Assessment Summary Assessment Marjorie reports she is ready to be discharged is doing more. Increased CS ROM rotation should allow Marjorie to scan for traffic with decreased difficulty. Core and CS muscle strength continues to be a problem, but Jenelle is now performing more activities, and comments she needs to remain more active next winter. Physical Therapy Plan Frequency and Duration Frequency of 2x/Week Treatment Duration of 8 treatment (weeks) Plan of Care Start 04/17/24 Date Plan of Care End 06/17/24 Date Next Visit Focus/Plan Next Note Type Discharge Summary
== END 2024-09-06 15:09 | disposition home or self-care (01) ==
LOC: PHYS 13:00
PROVIDERS: Family Provider Internal Medicine; PCP Internal Medicine; Referring Provider Internal Medicine; Visit Provider Internal Medicine
DX: M25.511 Pain in right shoulder (principal); M54.2 Cervicalgia; M54.50 Low back pain, unspecified
CPT/HCPCS: 97014; 97110; 97140; 97535; G0283

== ENCOUNTER 2024-10-25 15:16 | Emergency (ER) | payer MEDICARE, OTHER, SELFPAY ==
[2024-10-25] VITALS (11 sets, daily range): BP systolic 137–217; BP diastolic 64–105; PULSE 59–84; RESP 19–25; TEMP 37; O2SAT 95–97; BMI 26.9
--- NOTE | 2024-10-25 15:23 | DI.RAD.S_ITS ---
PROCEDURE: XR CHEST 1V INDICATIONS: Shortness of breath TECHNIQUE: One view of the chest was acquired. COMPARISON: None. FINDINGS: Surgical changes and devices: None. Lungs and pleura: Lungs are clear. No pleural effusions or pneumothorax. Mediastinum: Mediastinal contours appear normal. Heart size is normal. Bones and chest wall: No suspicious bony lesions. Overlying soft tissues appear unremarkable. IMPRESSION: No acute cardiopulmonary abnormality is seen. Dictated by: Roberto Roche M.D. on 10/25/2024 at 15:37 Approved by: Roberto Roche M.D. on 10/25/2024 at 15:40
[2024-10-25] MEDS: ALBUTEROL 2.5 MG/3 ML NEB (ADULT) INH ×2 (15:32→15:43)
[2024-10-25 15:52] LABS: Add Manual Diff / Slide Review NO; Hematocrit 35.7 % (36-46); Hemoglobin 12.3 g/dL (12.0-16.0); Lymphocytes Absolute Auto 1200 /uL (1100-4500); Mean Corpuscular HGB Conc 34.4 % (30-36); Mean Corpuscular Hemoglobin 29.9 PG (26-34); Mean Corpuscular Volume 87.1 fL (80-100); Platelet Count 207 X10^3/uL (150-400)
[2024-10-25 16:03] LABS: INR 0.9 (0.9-1.3); Prothrombin Time 10.4 SECONDS (9.4-12.5)
[2024-10-25 16:07] LABS: Lactate (Lactic Acid) 1.1 mmol/L (0.7-2.1)
--- NOTE | 2024-10-25 16:07 | EKG_ITS ---
[address] [address] Test Date: 2024-10-25 Pat Name: Marjorie Juan Department: Room: Gender: Female [facility] Director: JACOB : 1945 Requested By: Order Number: [id number] Reading MD: Ulises Loyd MD Measurements Intervals Whitney Rate: 62 P: 55 DC: 148 QRS: 9 QRSD: 78 T: 30 QT: 418 QTc: 424 Interpretive Statements Normal sinus rhythm Electronically Signed On 10-28-2024 7:45:38 PDT by Ulises Loyd MD
[2024-10-25 16:08] LABS: Alanine Aminotransferase 20 IU/L (<35); Albumin 4.4 g/dL (3.5-5.0); Albumin Globulin Ratio 1.6 (1.0-2.8); Alkaline Phosphatase 67 U/L (38-126); Blood Urea Nitrogen 19 mg/dL (7-17); Calcium 8.8 mg/dL (8.4-10.2); Carbon Dioxide 26 mmol/L (22-32); Chloride 89 mmol/L (98-107); Estimated Glomerular Filt Rate > 60 mL/min (>60); Globulin 2.8 g/dL (1.7-4.1); Glucose 111 mg/dL (70-99); HEMOLYSIS < 15 (0-50); Potassium 4.7 mmol/L (3.4-5.1); Sodium 124 mmol/L (137-145); Total Protein 7.2 g/dL (6.3-8.2)
[2024-10-25 16:20] LABS: NT-proBNP (BNP-Adult 18+) 367 pg/mL (<450); Troponin I < 0.012 ng/mL (0.01-0.034)
--- NOTE | 2024-10-25 16:55 | ED_ITS ---
HPI - SOB/Dyspnea General Chief Complaint: Shortness of Breath/Dyspnea Stated Complaint: SOB [id number], Sent by PCP Time Seen by Provider: 10/25/24 15:18 Source: patient Mode of arrival: Ambulatory Limitations: no limitations History of Present Illness HPI Narrative: Patient sees Dr. Loyd primary care. Patient has been short of breath without chest pain for the past 1 month. Has had wheezing. She has has history asthma but does not have inhaler at home. Denies any chest pain. No limb swelling. Patient does not smoke. Patient felt much better after breathing treatment provided her on arrival from respiratory therapist. Wheezing has resolved. She states she has breathing much better. Patient in no distress. Related Data Home Medications ?Medication ?Instructions ?Recorded ?Confirmed aspirin 81 mg chewable tablet 81 mg PO QDAY ##0 11/04/24 Previous Rx's ?Medication ?Instructions ?Recorded nystatin 100,000 unit/gram topical 1 applictn topical TID #30 grams 07/18/19 powder (Nystop) meloxicam 15 mg tablet 15 mg PO DAILY #90 tabs 10/15 07/06 carvedilol 12.5 mg tablet 25 mg (2 x 12.5 mg) PO BID # 360 05/13/24 tabs omeprazole 40 mg capsule,delayed 40 mg PO BID #180 cap s 05/13/24 release fluticasone propionate 50 2 spray intranasal HS #16 gr ams 06/20/24 mcg/actuation nasal spray,suspension venlafaxine 37.5 mg 37.5 - 75 mg (1 - 2 x 37.5 m g) PO 06/28/24 capsule,extended release 24 hr DAILY #60 caps lorazepam 1 mg tablet 1 mg PO TID PRN anxiety #45 tabs 07/04/24 albuterol sulfate 90 mcg/actuation 2 inhalation inhala tion QID PRN 10/25/24 aerosol inhaler (Ventolin HFA) shortness of breath or wheezing #6.7 grams Allergies Allergy/AdvReac Type Severity Reaction Status Date / Time Iodinated Contrast Media Allergy Unknown Verified 11/04/24 16:22 (IODINATED CONTRAST- ORAL AND IV DYE) bupropion (BUPROPION) AdvReac Severe nightmares, Verified 11/04/24 16:22 hallucinations, etc duloxetine AdvReac Severe hyponatremi Verified 11/04/24 16:22 a Review of Systems Review of Systems Narrative: GENERAL: Negative chills, fatigue, malaise, fever, sweats. HEENT: Negative sinus pain, ear pain, sore throat RESPIRATORY: Positive wheezing positive dyspnea, negative cough CARDIOVASCULAR: Negative chest pain, palpitations GASTROINTESTINAL: Negative vomiting, nausea, abdominal pain : Negative dysuria, frequency, hematuria MUSCULOSKELETAL: Negative muscle or bony pain SKIN: Negative rash, skin lesions NEUROLOGIC: Negative weakness, numbness ROS Unobtainable: All systems reviewed & are unremarkable except as noted in HPI and below Patient History Medical History Basal cell carcinoma Essential hypertension Essential tremor Asthma Bilateral medial epicondylitis of elbow joint (2004) Sleep apnea (~1999) Anxiety (~2001) Chronic headaches Right hip pain (2005) Cervical spine pain (~1999) Shoulder pain Foot pain, left (~2009) Fibromyalgia (~1999) Chronic back pain (2003) Recurrent sinusitis (~1999) Cataract, right eye (2013) GERD (gastroesophageal reflux disease) (~2004) DVT (deep venous thrombosis) (2008) Major depressive disorder in partial remission Surgical History History of right cataract surgery (2013) Anesthesia History of gynecologic surgery History of basal cell carcinoma (BCC) excision (06/14/11) History of open reduction and internal fixation (ORIF) procedure (09/30/15) Family History Grandfather Cancer Chemical exposure Pancreatic cancer Brother No problems noted. Brother No problems noted. Brother AIDS (acquired immune deficiency syndrome) Father No problems noted. Grandfather No problems noted. Grandmother Heart disease Smoker Mother Alzheimer's disease Vascular disease Grandmother No problems noted. Social History marital status: number of children: 2 household members: spouse lives independently: Yes caregiver/support person: No housing: house pets and animals: Yes education level: master's degree occupational status: other (Retired) Previous occupational history: Vocational Counselor khari/mandaen: Unknown leisure activities: other (Gardening) Smoking Status: Never smoker Tobacco: How many years used: 3 Smokeless tobacco user: other (Cigarettes) quit status: quit date established (1969) second hand exposure: No alcohol intake: former substance use type: does not use Smoking Status: Unknown if ever smoked Exam Narrative Exam Narrative: GENERAL: in no distress, not toxic not dyspneic HEAD: Normocephalic. EYES: Pupils equal round ENT: Mucous membranes moist. NECK: Trachea midline. CARDIOVASCULAR: Regular rate and rhythm RESPIRATORY: Clear to auscultation. Breath sounds equal bilaterally. No wheezes, rales, or rhonchi. GASTROINTESTINAL: Abdomen soft, non-tender EXTREMITIES: No gross deformities. BACK: No flank tenderness. NEURO: AOx4. Clear speech SKIN: Warm and dry PSYCH: Not anxious, is cooperative Initial Vital Signs Initial Vital Signs: Vital Signs Pulse Rate 77 10/25/24 15:22 Blood Pressure 217/105 H 10/25/24 15:22 Course Orders Ordered: Discontinued Medications Albuterol (Albuterol 2.5 Mg/3 Ml Neb (Adult)) 2.5 mg INH NOW ONE Stop: 10/25/24 15:31 Last Admin: 10/25/24 15:32 Dose: 2.5 mg Documented By: TOM Albuterol (Albuterol 2.5 Mg/3 Ml Neb (Adult)) 2.5 mg INH NOW ONE Stop: 10/25/24 15:46 Last Admin: 10/25/24 15:43 Dose: 2.5 mg Documented By: TOM Methylprednisolone (Methylprednisolone Succ 125 Mg/2 Ml Vial) 125 mg IV NOW ONE Stop: 10/25/24 17:10 Last Admin: 10/25/24 17:13 Dose: 125 mg Documented By: SARAH Vital Signs Vital signs: Vital Signs - 8 hr 10/25/24 15:22 10/25/24 15:22 10/25/24 15:24 Temperature 98.6 F Pulse Rate 77 84 Respiratory Rate 24 Blood Pressure 217/105 H 217/105 H Pulse Oximetry 97 Oxygen Delivery Method Room Air Oxygen Flow Rate Fraction of Inspired Oxygen 10/25/24 15:30 10/25/24 15:32 10/25/24 15:43 Temperature Pulse Rate 65 63 63 Respiratory Rate 20 22 20 Blood Pressure Pulse Oximetry 97 97 97 Oxygen Delivery Method Room Air Room Air Oxygen Flow Rate 0 0 Fraction of Inspired Oxygen 21 21 10/25/24 16:00 10/25/24 16:01 10/25/24 16:01 Temperature Pulse Rate 62 62 Respiratory Rate 21 23 Blood Pressure 165/79 H Pulse Oximetry 96 97 Oxygen Delivery Method Oxygen Flow Rate Fraction of Inspired Oxygen 10/25/24 16:30 10/25/24 16:31 10/25/24 16:31 Temperature Pulse Rate 68 70 Respiratory Rate 19 Blood Pressure 137/64 Pulse Oximetry 95 96 Oxygen Delivery Method Oxygen Flow Rate Fraction of Inspired Oxygen 10/25/24 17:00 10/25/24 17:01 10/25/24 17:01 Temperature Pulse Rate 59 L 59 L Respiratory Rate 25 H 22 Blood Pressure 165/79 H Pulse Oximetry 96 97 Oxygen Delivery Method Oxygen Flow Rate Fraction of Inspired Oxygen MDM - SOB/Dyspnea Lab Data 10/25/24 15:37 10/25/24 15:37 Labs: Lab Results 10/25/24 Range/Units 15:37 WBC 6.9 (4.5-11.0) X10^3/uL RBC 4.10 (4.0-5.2) X10^6/uL Hgb 12.3 (12.0-16.0) g/dL Hct 35.7 L (36-46) % MCV 87.1 (80-100) fL MCH 29.9 (26-34) PG MCHC 34.4 (30-36) % RDW 13.0 (11.6-14.8) % Plt Count 207 (150-400) X10^3/uL Neut % (Auto) 64.9 (50-75) % Lymph % (Auto) 17.5 L (25-40) % Faulkner % (Auto) 8.8 (3-14) % Eos % (Auto) 8.0 H (2-4) % Baso % (Auto) 0.8 (0-2) % Neut # (Auto) 4500 (4270-3171) /uL Lymph # (Auto) 1200 (0759-2469) /uL Faulkner # (Auto) 600 (0-900) /uL Eos # (Auto) 600 H (0-450) /uL Baso # (Auto) 100 (0-100) /uL PT 10.4 (9.4-12.5) SECONDS INR 0.9 (0.9-1.3) Sodium 124 L (137-145) mmol/L Potassium 4.7 (3.4-5.1) mmol/L Chloride 89 L (98-107) mmol/L Carbon Dioxide 26 (22-32) mmol/L BUN 19 H (7-17) mg/dL Creatinine 0.78 (0.52-1.04) mg/dL Estimated GFR > 60 (>60) mL/min BUN/Creatinine Ratio 24.4 H (6-22) Glucose 111 H (70-99) mg/dL Lactate 1.1 (0.7-2.1) mmol/L Calcium 8.8 (8.4-10.2) mg/dL Total Bilirubin 0.4 (0.2-1.3) mg/dL AST 32 (14-36) IU/L ALT 20 (<35) IU/L Alkaline Phosphatase 67 (38-126) U/L Troponin I < 0.012 (0.01-0.034) ng/mL NT-Pro-B Natriuret Pep 367 (<450) pg/mL Total Protein 7.2 (6.3-8.2) g/dL Albumin 4.4 (3.5-5.0) g/dL Globulin 2.8 (1.7-4.1) g/dL Albumin/Globulin Ratio 1.6 (1.0-2.8) Imaging Data Chest x-ray: Radiologist's Impression: [place] [address] XRay Report Signed Patient: Marjorie Juan MR#: [id number] : 1945 Acct:[id number] Age/Sex: 79 / F Date of Service: 10/25/24 Loc: ED Accession Number: [id number] Procedure: XR chest 1V Ordering Provider: Leonard Dewey MD PROCEDURE: XR CHEST 1V INDICATIONS: Shortness of breath TECHNIQUE: One view of the chest was acquired. COMPARISON: None. FINDINGS: Surgical changes and devices: None. Lungs and pleura: Lungs are clear. No pleural effusions or pneumothorax. Mediastinum: Mediastinal contours appear normal. Heart size is normal. Bones and chest wall: No suspicious bony lesions. Overlying soft tissues appear unremarkable. IMPRESSION: No acute cardiopulmonary abnormality is seen. Dictated by: Roberto Roche M.D. on 10/25/2024 at 15:37 Approved by: Roberto Roche M.D. on 10/25/2024 at 15:40 [facility] Narrative Medical decision making narrative: Patient sees Dr. Loyd primary care. Patient has been short of breath without chest pain for the past 1 month. Has had wheezing. She has has history asthma but does not have inhaler at home. Denies any chest pain. No limb swelling. Patient does not smoke. Patient felt much better after breathing treatment provided her on arrival from respiratory therapist. Wheezing has resolved. She states she has breathing much better. Patient in no distress. MDM After history and exam, CBC CMP EKG troponin BNP chest x-ray breathing treatment Differential considered: Includes but not limited to pneumonia bronchitis asthma CHF Medical records reviewed: August 12, [address] Loyd Lab Test results independently reviewed as above. Pertinent findings: WBC 6.9 hemoglobin 12.3 INR 0.9 sodium 124 appears to be chronic hyponatremia, potassium 4.7 GFR greater than 60 troponin less than 0.012 BNP 367 Independently reviewed EKG normal sinus rhythm rate [address]- elevation or depression Imaging studies independently reviewed: Chest x-ray no acute finding Consultations: None indicated at this time Re-evaluations: 5:00 p.m.. Patient feeling much better. Reviewed with their results and return precautions. Prescription for Medrol Dosepak and inhaler will be provided for her. She has appropriate follow up with primary care. 5:23 p.m.. Patient ambulated in hallway room air 95%, no shortness of breath. Feels much better. She desires discharge home Discussion: Appropriate for discharge home. Exam is reassuring. Patient likely has asthma exacerbation. No chest pain. Laboratory studies and imaging studies are reassuring. Patient had wheezing on arrival. Resolved with breathing treatment Diagnosis: Asthma exacerbation Discharge Plan Departure Patient Disposition: Home Clinical Impression: Asthma with exacerbation Qualifiers: Asthma severity: unspecified severity Asthma persistence: unspecified Qualified Code(s): J45.901 - Unspecified asthma with (acute) exacerbation Instructions: DI for Asthma -- Adult Activity Restrictions/Additional Instructions: Prescription for inhaler has been sent to your pharmacy to continue. Please use as directed 2 puffs every 4 hours as needed for asthma. Continue steroid pack tomorrow. Please see your family doctor next week for re-evaluation. Your exam and laboratory studies imaging studies are reassuring today. Prescriptions: New albuterol sulfate [Ventolin HFA] 90 mcg/actuation HFA aerosol inhaler 2 inhalation INHALATION QID PRN (Reason: shortness of breath or wheezing) Qty: 6.7 0RF No Action aspirin 81 MG tablet,chewable 81 mg PO QDAY Qty: 0 nystatin [Nystop] 100,000 unit/gram powder 1 applictn TOP TID Qty: 30 0RF meloxicam 15 mg tablet 15 mg PO DAILY Qty: 90 3RF omeprazole 40 mg capsule,delayed release(DR/EC) 40 mg PO BID Qty: 180 3RF fluticasone propionate 50 mcg/actuation spray,suspension 2 spray Intranasal HS Qty: 16 0RF venlafaxine 37.5 mg capsule,extended release 24hr 37.5 - 75 mg PO DAILY Qty: 60 3RF Rx Instructions: 1 cap daily for 2 weeks, then 2 caps daily lorazepam 1 mg tablet 1 mg PO TID MDD 3 tabs PRN (Reason: anxiety) Qty: 45 2RF carvedilol 12.5 mg tablet 25 mg PO BID Qty: 360 3RF Rx Instructions: must administer with a meal/food Referrals: Ulises Loyd MD [Primary Care Provider, Internal Medicine] Stand Alone Forms: Patient Portal/API
[2024-10-25] MEDS: methylPREDNISolone succ 125 MG/2 ML VIAL IV (17:13)
== END 2024-10-25 17:29 | disposition home or self-care (01) ==
PROVIDERS: Emergency Provider Emergency Medicine; Family Provider Internal Medicine; PCP Internal Medicine
DX: J45.901 Unspecified asthma with (acute) exacerbation (principal)
CPT/HCPCS: 36415; 71045; 80053; 83605; 83880; 84484; 85025; 85610; 93005; 93010; 94640; 96374; 99284; J2919; J7613